=== PATIENT | female | born 1975 | race Caucasian/White ===

== ENCOUNTER 2018-09-09 18:32 | Emergency (ER) | payer SELFPAY ==
[2018-09-09 18:32] VITALS: BP 165/79; PULSE 85; RESP 24; TEMP 36.6; O2SAT 97; BMI 42.5
--- NOTE | 2018-09-09 19:04 | ED.VISSUMM ---
- ER Visit Summary Date of Service: 09/09/18 Chief Complaint: [Not feeling well] History of Present Illness: The patient is a 43 F [presents the emergency department with multiple vague complaints. Patient states that she is been under increased stress of late. They just moved to the area from [place] 3 weeks ago. Patient has a history of severe anxiety. Patient states that recently her 17-year-old daughter left her and left her baby with her as soon as she is taking care of her grandson. Patient has been feeling very anxious and at times short of breath. Patient has a history of severe anxiety in [place] times when even leave the house. Patient has been without her Lexapro for several months. She also used to be on Ativan. She denies any significant chest pain other than occasionally with her anxiety she will have some chest discomfort. She had no fever or cough. Also describes that her legs jump at night and twitch which has been happening for several months.] Physical Examination: [HEENT-PERRLA, EOMI. Cranial nerves II through XII grossly intact. TMs clear. Mucous membranes moist. No adenopathy. Cardiovascular-regular rate and rhythm without murmur or ectopy Lungs-clear to auscultation, chest wall stable without crepitus or subcu emphysema Abdomen-normoactive bowel sounds, soft, nontender, no rebound or rigidity, no peritoneal signs. Extremities-intact ?4, normal range of motion, normal pulses, atraumatic] Test Results: [None indicated] Emergency Department Course and Treatment: [] Treatment Plan: [I suspect patient likely experiencing anxiety and will restart her on her Lexapro and give her as needed Ativan.] Disposition: [Discharged home in stable condition. Patient will be referred to primary care physician pension examiner for no doc.] Impression: [Anxiety reaction] This note was generated with [employer] dictation software. It may contain incorrect words, spelling, and punctuation that were not noted in review of the chart prior to signing ED Disposition - Plan for ED Patient: Referrals: NOT,DEFINED [Primary Care Provider] -
--- NOTE | 2018-09-09 19:06 | ED.DEP ---
ED Disposition - Plan for ED Patient: Instructions: ED Stress React Prescriptions: Escitalopram Oxalate [Lexapro] 10 mg PO DAILY #30 tab Lorazepam [Ativan] 1 mg PO TID PRN #15 tab PRN Reason: Anxiety Referrals: NOT,DEFINED [Primary Care Provider] - Elizabeth Egan [[facility]] - 5-7 Days
--- NOTE | 2018-09-09 19:17 | ED.RN ---
DISCHARGE INSTRUCTIONS GIVEN TO AND REVIEWED WITH PATIENT, PATIENT DENIES QUESTIONS OR CONCERNS AND VOICES UNDERSTANDING OF DISCHARGE INSTRUCTIONS. PT AMBULATES OUT OF ROOM WITHOUT ISSUE.
== END 2018-09-09 19:21 | disposition home or self-care (01) ==
LOC: ED 19:17
PROVIDERS: Emergency Provider Emergency Medicine
DX: F41.1 Generalized anxiety disorder (principal); Z79.899 Other long term (current) drug therapy
CPT/HCPCS: 99282

== ENCOUNTER 2019-07-01 11:55 | Emergency (ER) | payer MEDICAID, SELFPAY ==
[2019-07-01 11:55] VITALS: BP 153/110; PULSE 82; RESP 16; TEMP 37.1; O2SAT 97; BMI 41.0
--- NOTE | 2019-07-01 12:14 | ED.VISSUMM ---
- ER Visit Summary Date of Service: 07/01/19 Chief Complaint: Atraumatic right shoulder pain History of Present Illness: The patient is a 44 F. There is no past medical history. Never had any significant shoulder surgery or injury. States she has been watching a small child recently that is her grandchild. She has been sleeping by the child. Said this caused her soreness in her right shoulder for the last 1 to 2 weeks. Last evening today is much worse. Denies any fever. No swelling. No redness. Physical Examination: Middle-aged female complaining of pain in her right shoulder. H EENT exam unremarkable. Neck nontender. Lungs clear to auscultation bilaterally. Heart regular rhythm no murmur. Abdomen soft nontender normal bowel sounds no peritoneal signs. Left upper and both lower extremities are unremarkable. Nontender with normal range of motion. Right shoulder tender to palpation. No deformity. No redness or swelling. No warmth. No bony deformity. She has decreased active and passive range of motion due to pain. This does not appear to be a septic joint. There is no obvious fracture or dislocation. 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 There is no swelling. Neurologic exam unremarkable. Test Results: Right shoulder x-ray 3 views shows no acute abnormality read by myself and the radiologist. Repeat exam at 1253 patient has some improvement. There is no change in the exam. Again no redness or warmth. Right hand remains neurovascularly intact. Emergency Department Course and Treatment: This appears to be a musculoskeletal etiology. It does not appear to be cardiac in etiology or neurologic. There is no signs of infection. She was given [place] for pain. X-ray being obtained. Treatment Plan: [] Disposition: Discharge Impression: Musculo skeletal right shoulder pain This note was generated with [employer] dictation software. It may contain incorrect words, spelling, and punctuation that were not noted in review of the chart prior to signing ED Disposition - Plan for ED Patient: Referrals: Care Physician,No Primary [Primary Care Provider] -
[2019-07-01] MEDS: HYDROcodone Bitartrate/Apap 5/325 Tablet PO (12:18)
--- NOTE | 2019-07-01 12:20 | RAD_ITS ---
STUDY: X-RAY - RIGHT SHOULDER REASON FOR EXAM: Female, 44 years old. PAIN SINCE THIS MORNING, NO INJURY -- LROM TECHNIQUE: 4 view(s) of the shoulder. COMPARISON: None. FINDINGS: Normal glenohumeral articulation. Normal acromioclavicular joint. Normal acromion. Normal humeral head and visualized proximal humerus. The soft tissue structures are unremarkable. Normal visualized pulmonary apex. RAD/Shoulder min 2 Views IMPRESSION: Normal x-ray examination of the shoulder. Electronically Signed: Mirza Hussein, at 12:47 EDT , Service support ,
--- NOTE | 2019-07-01 12:55 | ED.DEP ---
ED Disposition - Plan for ED Patient: Disposition: Home or Assisted Living Instructions: SHOULDER PAIN (Uncertain Cause) Prescriptions: Hydrocodone/Acetaminophen [[place] 5-325 Tablet] 1 ea PO Q4H PRN PRN #10 tab PRN Reason: Pain Or Fever Prescription Printed Referrals: Fede Tripp MD [NON-STAFF] - 1 Week if not improving Additional Instructions: Motrin for pain and inflammation. Limited [place] for pain. Ice to your shoulder. This should progressively improve if not follow-up. Any signs of redness or fever or swelling to the shoulder return.
[2019-07-01 13:05] VITALS: BP 137/82; PULSE 79; RESP 16; O2SAT 97
== END 2019-07-01 13:06 | disposition home or self-care (01) ==
PROVIDERS: Emergency Provider Emergency Medicine
DX: M75.51 Bursitis of right shoulder (principal)
CPT/HCPCS: 73030; 99283

== ENCOUNTER 2020-05-25 15:39 | Emergency (ER) | payer MEDICAID, SELFPAY ==
[2020-05-25 15:39] VITALS: BP 177/104; PULSE 83; RESP 20; TEMP 36.4; O2SAT 98; BMI 43.7
--- NOTE | 2020-05-25 16:49 | ED.DCSUM_ITS ---
- ER Visit Summary Date of Service: 05/25/20 Chief Complaint: [Paresthesias to both legs] History of Present Illness: The patient is a 45 F [presents to the emergency department complaint of paresthesias to both legs that started about a week ago. Patient denies any trauma to her back. She denies any neck pain out of the ordinary. She describes from about mid calf down to her feet sensation of feeling like her legs are asleep. Patient also states that her legs and feet tentative feel cold all the time. Patient was concerned this may be a circulation issue or she was worried about sciatica or neuropathy. She is never had sensations like this before. She denies any trauma to her neck or back. She denies recent illness. She denies Covid exposures. Patient does have history of restless leg syndrome and she states that she smokes marijuana to help treat that. She does not have a primary care physician currently.] Patient had gestational diabetes in 2005 but is not otherwise currently being treated for diabetes. Patient states that this all started when she stretched a really hard one morning and stretched out her legs and then developed charley horse-like cramping in both legs that then led to this numbness and tingling that she is currently experiencing. Physical Examination: [HEENT-PERRLA, EOMI. Cranial nerves II through XII grossly intact. TMs clear. Mucous membranes moist. No adenopathy. Cardiovascular-regular rate and rhythm without murmur or ectopy Lungs-clear to auscultation, chest wall stable without crepitus or subcu emphysema Abdomen-normoactive bowel sounds, soft, nontender, no rebound or rigidity, no peritoneal signs. Back exam-no tenderness over the thoracic or lumbar spine. Negative straight leg raises. Deep tendon reflexes are plus 2 out of 4 bilaterally at the patella and Achilles. Patient has normal 5 extension bilaterally. Extremities-intact ?4, normal range of motion, normal pulses, atraumatic.] Test Results: [CBC with differential was normal. Chemistries unremarkable. TSH was 1.14. Urinalysis showed 1 her leukocyte esterase as well as positive nitrites and 25-50 WBCs as well as +3 bacteria.] Emergency Department Course and Treatment: [Patient was medicated with Bactrim DS 1 tablet p.o.] Treatment Plan: [Patient will be referred to primary care physician for follow- up as etiology of neuropathy is unclear.] Disposition: [Discharged home in stable condition] Impression: [Neuropathy UTI] This note was generated with [employer] dictation software. It may contain incorrect words, spelling, and punctuation that were not noted in review of the chart prior to signing ED Disposition - Plan for ED Patient: Referrals: Care Physician,No Primary [Primary Care Provider] -
[2020-05-25 17:49] LABS: Mucous, Urine 0 SEEN /hpf (<or=2+)
[2020-05-25 17:57] LABS: Absolute Lymphocyte Count 1.95 X10^3/uL (0.83-4.51); Absolute Neutrophil Count 4.4 X10^3/uL (2.0-7.7); Basophil# 0.02 X10^3/uL; Basophil% 0.3 % (0-1); Eosinophil# 0.11 X10^3/uL; Eosinophils% 1.6 % (0-5); Hematocrit 44.7 % (37-47); Hemoglobin 13.8 g/dL (12.0-15.0); Lymphocyte # 1.95 X10^3/ul (4.0); Lymphocyte % 28.3 % (19-41); Mean Corp Hgb Conc 30.9 g/dL (32-36); Mean Corpuscular Hgb 27.1 pg (27.0-32.0); Mean Corpuscular Volume 87.8 fL (81-99); Mean Platelet Vol. 9.9 fl (6.2-12.0); Monocyte# 0.37 X10^3/uL; Monocyte% 5.4 % (0-10); NRBC Flagged by Analyzer 0 % (0-5); Neutrophil # 4.43 X10^3/uL (2.7-7.7); Neutrophil % 64.1 % (47-70); Platelet Count 277 K/mm3 (150-450); RBC Distribution Width CV 13.2 % (11.6-14.6); RBC Distribution Width SD 42.5 fl (35.1-43.9); Red Blood Count 5.09 M/mm3 (4.2-5.4); White Blood Count 6.9 K/mm3 (4.4-11.0)
[2020-05-25 17:58] LABS: Color, Urine Yellow (Yellow); Glucose, Dipstick Normal (Normal); Ketone-Dipstick Negative (Negative); Leukocyte Esterase-Dipstick 100 /ul (Negative); Nitrite-Dipstick Positive (Negative); Occult Blood-Urine 250 /ul (Negative); Protein-Dipstick Negative (Negative); Urine Bilirubin Dipstick Negative (Negative); Urine Clarity Sl. Cloudy (Clear); Urine Urobilinogen Normal (Normal); Urine pH 6.5 (5.0 - 8.0)
[2020-05-25 18:16] LABS: White Blood Cells 25-50 SEEN /hpf (0-5)
[2020-05-25 18:17] LABS: Bacteria 3+ /hpf (None Seen); Red Blood Cells-Urine 0-5 SEEN /hpf (0-5); Squamous Epithelial Cells - UA 0-5 SEEN /hpf (5-10)
[2020-05-25 18:31] LABS: Anion Gap 2 (5-15); BUN 7 mg/dL (7-18); BUN/Creat Ratio 8.4 RATIO (10-20); Calcium,Total 9.2 mg/dL (8.5-10.1); Chloride 105 mmol/L (98-107); Creatinine, Serum 0.83 mg/dL (0.55-1.02); EST Glomerular Filtration Rate 79 mL/min (>60); Est Glom Filt Rate - Afr Amer 96 mL/min (>60); Estimated Creatinine Clearance 87.25 ml/min; Glucose 103 mg/dL (74-106); Potassium 3.6 mmol/L (3.5-5.1); Sodium Level 138 mmol/L (136-145); Thyroid Stim Hormone (TSH) 1.14 uIU/mL (0.358-3.74)
--- NOTE | 2020-05-25 18:47 | ED.DEP ---
ED Disposition - Plan for ED Patient: Instructions: ED Neuropathy, Peripheral, ED Urinary Tract Infections in Women Prescriptions: Smz/Tmp Ds [Bactrim Ds] 1 tab PO BID #6 tab Prescription Printed Referrals: Care Physician,No Primary [Primary Care Provider] - Rosalino Mcclain MD [STAFF PHYSICIAN] - 3-5 Days
[2020-05-25] MEDS: Smz/Tmp Ds Tablet 1 TABLET PO (18:57)
== END 2020-05-25 19:03 | disposition home or self-care (01) ==
LOC: ED 17:23
PROVIDERS: Emergency Provider Emergency Medicine
DX: G62.9 Polyneuropathy, unspecified (principal); N39.0 Urinary tract infection, site not specified; G25.81 Restless legs syndrome; F12.90 Cannabis use, unspecified, uncomplicated
CPT/HCPCS: 80048; 81001; 83735; 84443; 85025; 99284; A4216

== ENCOUNTER 2020-06-20 16:05 | Emergency (ER) | payer MEDICAID, SELFPAY ==
[2020-06-20 16:06] VITALS: BP 131/69; PULSE 91; RESP 17; TEMP 36.5; O2SAT 98; BMI 41.8
--- NOTE | 2020-06-20 16:14 | EKG12_ITS ---
Test Reason : CP Blood Pressure : / mmHG Vent. Rate : 079 BPM Atrial Rate : 079 BPM P-R Int : 140 ms QRS Dur : 078 ms QT Int : 378 ms P-R-T Axes : 043 015 040 degrees QTc Int : 433 ms Normal sinus rhythm Low voltage QRS Septal infarct , age undetermined Abnormal ECG Confirmed by MARICHUY CH, MIGUEL ([id number]), slot editor SRI MCCRAY ([id number]) on 06/26/2020 10:18:20 A M Referred By: /BB Confirmed By:JEFFERY BENEDICT MD
--- NOTE | 2020-06-20 16:24 | NURSING ---
NO OLD EKGS
[2020-06-20 16:28] LABS: Absolute Lymphocyte Count 1.91 X10^3/uL (0.83-4.51); Absolute Neutrophil Count 4.1 X10^3/uL (2.0-7.7); Basophil# 0.01 X10^3/uL; Basophil% 0.2 % (0-1); Eosinophil# 0.11 X10^3/uL; Eosinophils% 1.7 % (0-5); Hematocrit 41.5 % (37-47); Hemoglobin 13.4 g/dL (12.0-15.0); Lymphocyte # 1.91 X10^3/ul (4.0); Lymphocyte % 29.2 % (19-41); Mean Corp Hgb Conc 32.3 g/dL (32-36); Mean Corpuscular Hgb 28.5 pg (27.0-32.0); Mean Corpuscular Volume 88.1 fL (81-99); Monocyte# 0.39 X10^3/uL; NRBC Flagged by Analyzer 0 % (0-5); Neutrophil # 4.08 X10^3/uL (2.7-7.7); Neutrophil % 62.4 % (47-70); Platelet Count 279 K/mm3 (150-450); RBC Distribution Width CV 13.4 % (11.6-14.6); RBC Distribution Width SD 43.4 fl (35.1-43.9); Red Blood Count 4.71 M/mm3 (4.2-5.4); White Blood Count 6.5 K/mm3 (4.4-11.0)
[2020-06-20 16:46] LABS: Anion Gap 8 (5-15); BUN 10 mg/dL (7-18); BUN/Creat Ratio 11.8 RATIO (10-20); Chloride 104 mmol/L (98-107); Creatinine, Serum 0.85 mg/dL (0.55-1.02); EST Glomerular Filtration Rate 77 mL/min (>60); Est Glom Filt Rate - Afr Amer 94 mL/min (>60); Glucose 93 mg/dL (74-106); Potassium 3.2 mmol/L (3.5-5.1); Sodium Level 141 mmol/L (136-145)
--- NOTE | 2020-06-20 16:50 | RAD_ITS ---
EXAM: XR CHEST, 1 VIEW CLINICAL INDICATION: chest pain TECHNIQUE: Frontal view of the chest. [employer] report generation technology utilized. COMPARISON: None. FINDINGS: LUNGS AND PLEURAL SPACES: Unremarkable. No consolidation or edema. No pneumothorax. No effusion. HEART: Unremarkable. Cardiac silhouette not enlarged. MEDIASTINUM: Central airways and mediastinal contour are unremarkable. BONES/JOINTS: Unremarkable. SOFT TISSUES: Unremarkable. RAD/Chest 1 View (Portable) IMPRESSION: No radiographic evidence of acute cardiopulmonary disease. Electronically Signed: Michael Griggs MD at 17:09 EST , Service support ,
--- NOTE | 2020-06-20 16:51 | ED.DCSUM_ITS ---
- ER Visit Summary Date of Service: 06/20/20 Chief Complaint: Chest pain History of Present Illness: The patient is a 45 F history of anxiety, gestational diabetes and reflux. Patient states at 9 PM last night at rest she got left parasternal chest discomfort went away before she went to bed. When she woke up this morning about 45 minutes later she got the chest pain again. She describes as a pressure. She denies any nausea, diaphoresis or dyspnea. Not associated with exertion. No history of DVT or PE. No cardiac history. No prior cardiac work-up. She is a non-smoker. She denies any recent exertional dyspnea nor exertional chest pain. Physical Examination: Middle-aged female no acute distress initial blood pressure 131/69 pulse ox 90% room air no signs hypoxia. HEENT exam unremarkable. Neck nontender no JVD. Lungs auscultation bilaterally. Heart regular rhythm no murmur rate about 80. Chest wall not specifically tender. Abdomen soft nontender normal bowel sounds no peritoneal signs. Extremities moves all 4. Calves are nontender without edema or cords. Neurologically she is awake alert with no focal motor deficits. Test Results: EKG shows normal sinus rhythm rate of 79 with low voltage. CBC normal white count of 6 hemoglobin 13. She is unremarkable normal creatinine gap. Potassium 3.2. Troponin normal. Repeat EKG showed normal sinus rhythm rate of 79 no change from the first. Chest x-ray portable 1 view interpreted by myself showed no acute abnormality. Normal cardiac silhouette mediastinum. Also read by the radiologist and agrees. PN exam patient is doing well at 1830. She is feeling better after the GI cock tail and Pepcid. This may be secondary to reflux. I do not think is cardiac. She is comfortable being discharged home. Emergency Department Course and Treatment: Patient with atypical chest pain will undergo chest pain protocol. I did give her a GI cocktail and Pepcid to see if that will relieve her symptoms. Treatment Plan: Protonix for reflux. Outpatient follow-up with a local primary care physician. Disposition: Discharge Impression: Acute chest pain of uncertain etiology Reflux This note was generated with [employer] software. It may contain incorrect words, spelling, and punctuation that were not noted in review of the chart prior to signing ED Disposition - Plan for ED Patient: Referrals: Care Physician,No Primary [Primary Care Provider] -
--- NOTE | 2020-06-20 16:54 | EKG12_ITS ---
Test Reason : REAPEAT Blood Pressure : / mmHG Vent. Rate : 079 BPM Atrial Rate : 079 BPM P-R Int : 136 ms QRS Dur : 084 ms QT Int : 394 ms P-R-T Axes : 045 -08 024 degrees QTc Int : 451 ms Normal sinus rhythm Low voltage QRS Borderline ECG Confirmed by BEKA CH, JOSEF ([id number]), editor newspaper SRI MCCRAY ([id number]) on 06/22/2020 11:12:49 AM Referred By: Confirmed By:JOSEF IRELAND MD
[2020-06-20] MEDS: Famotidine 20 MG Tablet 40 MG PO (17:29)
[2020-06-20] MEDS: Mag Hydrox/Al Hydrox/Simeth 30 ML UDC PO (17:29)
[2020-06-20 17:33] VITALS: BP 135/84; PULSE 80; RESP 23; O2SAT 96
--- NOTE | 2020-06-20 18:36 | ED.DEP ---
ED Disposition - Plan for ED Patient: Disposition: Home or Assisted Living Instructions: ED Chest Pain, Uncertain Cause, ED GERD (Adult) Prescriptions: Pantoprazole Sodium [Protonix] 40 mg PO DAILY #30 tab Prescription Printed Referrals: Mauricio Maldonado MD [STAFF PHYSICIAN] - 3-5 Days if not improving Additional Instructions: Follow-up with a local primary care physician. Your test today were unremarkable. This will be treated as possible gastroesophageal reflux. With Protonix daily.
[2020-06-20 18:46] VITALS: BP 143/78; PULSE 81; RESP 18; O2SAT 97
--- NOTE | 2020-06-20 18:47 | ED.RN ---
THIS NURSE REVIEWED D/C INSTRUCTIONS WITH PT. PT VERBALIZED UNDERSTANDING OF INSTRUCTIONS. IV D/C. IV CATHETER INTACT. PT TOLERATED WELL. PT DENIES FURTHER NEEDS OR QUESTIONS AT THIS TIME
== END 2020-06-20 18:47 | disposition home or self-care (01) ==
PROVIDERS: Emergency Provider Emergency Medicine
DX: R07.9 Chest pain, unspecified (principal); K21.9 Gastro-esophageal reflux disease without esophagitis; Z79.899 Other long term (current) drug therapy
CPT/HCPCS: 71045; 80048; 84484; 85025; 93005; 99285; A4216

== ENCOUNTER 2021-06-20 15:18 | Emergency (ER) | payer MEDICAID, SELFPAY ==
[2021-06-20 15:19] VITALS: BP 164/95; PULSE 87; RESP 16; TEMP 36; O2SAT 97; BMI 41.0
--- NOTE | 2021-06-20 15:53 | CT_ITS ---
EXAM: CT HEAD WITHOUT INTRAVENOUS CONTRAST : 1975 CLINICAL INDICATION: Pain TECHNIQUE: Multiple axial images were obtained of the head without intravenous contrast. This CT exam was performed using one or more of the following dose reduction techniques: automated exposure control, adjustment of the mA and/or kV according to patient size, and/or use of iterative reconstruction technique. This report was created using [employer] report generation technology. COMPARISON: None. FINDINGS: BRAIN AND EXTRA-AXIAL SPACES: Unremarkable. No intra- or extra-axial hemorrhage. No evidence of acute infarct. No intracranial mass or mass effect. There is preservation of the mccoy/white matter interface. Posterior fossa structures are unremarkable. Ventricles are appropriate for age. No hydrocephalus. Basal cisterns are patent. BONES/JOINTS: Unremarkable. No discrete lytic or blastic abnormalities. SINUSES: Unremarkable as visualized. Clear. MASTOID AIR CELLS: Unremarkable. Clear. ORBITS: Visualized globes, extraocular muscles, optic nerves and retrobulbar fat appear unremarkable. CT/Brain/Head without Contrast IMPRESSION: No acute abnormality. Individualized dose optimization techniques were used for this CT. at 1628 Reported and signed by: Joey Mejia MD Electronically Signed: Joey Mejia MD at 16:27 EST ,
--- NOTE | 2021-06-20 15:53 | EX.ED.DYSGE1 ---
HPI History of Present Illness Chief Complaint: Headache Narrative Narrative: Patient complains of headache for a week at a pressure type sensation over her frontal sinuses area, she is a long history almost lifelong of migraine she states this is slightly different, some pressure in her central face, no numbness mixed paresthesias no loss of any type of mental or neurologic function she is able to get up do all of her daily activities for the last 7 days despite the headaches, she took [id number] Tylenol type medicine with no improvement presents for evaluation, no fever no cough no #6 paresthesias PFSH PFSH Medical History (Updated 06/20/21 @ 15:48 by Gisselle Ruelas) Endometriosis Migraine Home Medications NK 06/20/21 [History Last Taken Unknown] Allergy/AdvReac Type Severity Reaction Status Date / Time Penicillins Allergy Angioedema Verified 06/20/21 15:20 Surgical History (Updated 06/20/21 @ 15:55 by Gisselle Ruelas) H/O hernia repair H/O tubal ligation Hx of cholecystectomy Social History Smoking Status: Never smoker ROS ROS ED Neurologic Neurologic: Reports headache(s) EXAM Physical Exam Narrative Exam Narrative: Vital signs unremarkable head neck chest unremarkable lungs clear heart tones normal abdomen soft nontender cranial nerves normal motor cerebellar neurologic function unremarkable NIH 0 Const Vital Signs: 06/20/21 15:19 Temperature 96.8 F L Temperature Source Temporal Pulse Rate 87 Respiratory Rate 16 Blood Pressure 164/95 H Blood Pressure Mean 118 Pulse Ox 97 Oxygen Delivery Method Room Air MDM MDM MDM Narrative Medical decision making narrative: Given her complaints pain management CT head We had described prescribed pain management for the patient she later told the nurse she was nervous to take any new medications and refused all medications, so no meds were given at her request, head CT was obtained that showed nothing acute I explained to the exact etiology of headache remains unclear she is comfortable with discharge home she was concerned about sinusitis or something else that is life-threatening she understands etiology remains not fully determined and she needs outpatient management she is referred to the local clinic to be seen tomorrow she will take what ever medication [id number] she is comfortable taking and return for change in symptoms Home stable Final impression acute recurrent headache Radiography Diagnostic Testing: Clinical Impression(s) from Imaging Studies Brain CT 06/20/21 15:53 IMPRESSION: No acute abnormality. Individualized dose optimization techniques were used for this CT. at 1628 Reported and signed by: Joey Mejia MD Electronically Signed: Joey Mejia MD at 16:27 EST , Discharge Plan Triage Chief Complaint: Headache ED Provider: Lynette Lott Dx/Rx/DC Orders Prescriptions: No Action NK RF: 0 Primary Care Provider: Care Physician,No Primary
[2021-06-20 18:23] VITALS: BP 129/92; PULSE 86; RESP 16; O2SAT 98
== END 2021-06-20 18:24 | disposition home or self-care (01) ==
PROVIDERS: Emergency Provider Emergency Medicine; Visit Provider Emergency Medicine
DX: R51.9 Headache, unspecified (principal); N80.9 Endometriosis, unspecified
CPT/HCPCS: 70450; 99282

== ENCOUNTER 2022-01-11 10:24 | Emergency (ER) | payer MEDICAID, SELFPAY ==
[2022-01-11 10:26] VITALS: BP 166/92; PULSE 97; RESP 18; TEMP 36.8; O2SAT 99; BMI 41.5
--- NOTE | 2022-01-11 11:02 | ED.VIS.GI ---
HPI HPI - GI History of Present Illness Chief Complaint: Abd Pain Informant: patient Abdominal Pain/Flank Pain Onset: Days (2) Context: Gradual Onset Timing: Continuous Quality: Sharp Location: RLQ Worsened by: Movement Relieved by: Nothing Nausea/Vomiting/Emesis GI Symptom: Negative for Nausea or Vomiting Diarrhea/Melena/Hematochezia GI Symptom: Negative for Diarrhea, Melena or Hematochezia Associated Symptoms Associated Symptoms: Negative for Dysuria, Frequency or Hematuria Narrative Narrative: Patient presents with right lower abdominal pain that has been constant for the past 2 days. Patient states it began in the right lower quadrant. Patient states it is gradually gotten worse. Patient describes her pain as sharp. Patient states it is worse with certain movements and with walking. Patient states that whenever she lifts her leg up to take a step her pain gets worse. Patient states her pain gets better when she pushes on the right lower quadrant and is worse when she lets go. Patient denies any nausea or vomiting. Patient denies any diarrhea, melena, or hematochezia. Patient states she had a normal bowel movement. Patient denies any urinary complaints. Patient states her last menstrual period was 12/22/2021. [facility] Medical History Endometriosis Migraine Home Medications NK 06/20/21 [History Last Taken Unknown] Allergy/AdvReac Type Severity Reaction Status Date / Time Penicillins Allergy Angioedema Verified 01/11/22 10:26 Surgical History H/O hernia repair H/O tubal ligation Hx of cholecystectomy Social History Smoking Status: Never smoker ROS ROS ED Constitutional Constitutional ED: Denies chills or fever(s) Eyes Eyes: Denies blurry vision or change in vision ENT ENT ED: Denies rhinorrhea or sore throat Cardiovascular Cardiovascular: Denies chest pain or palpitations Respiratory/Chest Respiratory/Chest: Denies cough or dyspnea Gastrointestinal Gastrointestinal: Reports abdominal pain; Denies nausea or vomiting Genitourinary Genitourinary ED: Denies dysuria or hematuria Musculoskeletal Musculoskeletal: Reports back pain; Denies neck pain Integumentary Denies abscess or rash Neurologic Neurologic: Denies headache(s) or weakness Allergic/Immunologic Allergic/Immunologic ED: Denies mouth swelling or urticaria EXAM Physical Exam Const Vital Signs: 01/11/22 10:26 01/11/22 12:30 01/11/22 14:07 Temperature 98.2 F Temperature Source Temporal Pulse Rate 97 72 Respiratory Rate 18 16 16 Blood Pressure 166/92 H Blood Pressure Mean 116 Pulse Ox 99 98 Oxygen Delivery Method Room Air Room Air Positive well nourished, well developed and obese General Appearance ED: well developed and NAD Nutritional Appearance: obese HEENT Reports moist mucous membranes Neck supple and no JVD Resp normal respiratory effort and clear to auscultation bilaterally Cardio regular rate, regular rhythm and no murmurs GI normal to inspection, nondistended, normoactive bowel sounds Palpation: soft, tender RLQ and rebound tenderness present; Negative for guarding Extremity normal to inspection General Extremety ED: Negative for edema or tenderness General Extremity: Negative for edema Neuro oriented x3, CN's II-XII intact bilaterally and no sensory deficits noted Sensorium / Orientation: alert Motor Exam: strength 5/5 throughout Psych mental status grossly normal Skin no rashes or lesions noted MDM MDM MDM Narrative Medical decision making narrative: Patient was given IV fluids, morphine, and Zofran. CBC was within normal limits. Comprehensive metabolic profile was within normal limits. Lipase was normal. Urinalysis does not show any evidence of urinary tract infection or hematuria. CT scan of the abdomen pelvis was obtained. There is no evidence of appendicitis. There is a left renal cyst. There is some left hydronephrosis due to a stricture at the left ureteropelvic junction. There is a right ovarian cyst measuring 4.9 x 4.5 cm. This was interpreted by the radiologist and reviewed by myself. Patient was advised of her findings. Patient is feeling better on reevaluation. Patient was instructed to take ibuprofen as needed for pain. Patient was instructed to follow-up with her primary care physician and P[employer] in 5 to 7 days. Patient understood and was agreeable with the plan. All questions were answered. Lab Data Attestation: I reviewed the patient's lab results. Labs: Laboratory Results - last 24 hr 01/11/22 01/11/22 01/11/22 10:46 10:46 12:04 WBC 7.3 RBC 4.79 Hgb 13.8 Hct 41.3 MCV 86.2 MCH 28.8 MCHC 33.4 RDW Std Deviation 41.3 RDW Coeff of Krista 13.2 Plt Count 267 MPV 10.3 Immature Gran % (Auto) 0.500 Neut % (Auto) 68.2 Lymph % (Auto) 23.8 [place] % (Auto) 5.3 Eos % (Auto) 1.8 Baso % (Auto) 0.4 Absolute Neuts (auto) 5.0 Absolute Lymphs (auto) 1.75 Nucleated RBC % 0 Sodium 139 Potassium 4.1 Chloride 105 Carbon Dioxide 28.0 Anion Gap 6 BUN 12 Creatinine 0.72 Estim Creat Clear Calc 103.12 Est GFR (MDRD) Af Amer 113 Est GFR (MDRD) Non-Af 93 BUN/Creatinine Ratio 16.8 Glucose 146 H Calcium 9.3 Total Bilirubin 0.40 AST 12 L ALT 18 Alkaline Phosphatase 66 Total Protein 7.6 Albumin 3.5 Globulin 4.1 Albumin/Globulin Ratio 0.9 Lipase 82 Urine Color Straw Urine Clarity Clear Urine pH 6.5 Ur Specific [place] 1.010 Urine Protein Negative Urine Glucose (UA) Normal Urine Ketones Negative Urine Occult Blood 50 H Urine Nitrite Negative Urine Bilirubin Negative Urine Urobilinogen Normal Ur Leukocyte Esterase 25 H Urine RBC 0 SEEN Urine WBC 0 SEEN Ur Squamous Epith Cells 0-5 SEEN Urine Bacteria 0 SEEN Urine Mucus 0 SEEN Radiography Diagnostic Testing: Clinical Impression(s) from Imaging Studies Abdomen/Pelvis CT 01/11/22 11:07 IMPRESSION: Left renal cyst. Moderate degree of left hydronephrosis most likely secondary to a stricture at the left ureteral pelvic junction. Nonobstructive calculi in the lower pole calyx of the left kidney. 4.9 sign by 4.5 semi a cyst in the right ovary. Electronically Signed: Mirza Hussein MD at 13:25 EDT , Discharge Plan Triage Chief Complaint: Abd Pain ED Provider: Akhil Beard Dx/Rx/DC Orders Clinical Impression: Cyst of right ovary, Right lower quadrant abdominal pain Instructions: ED Ovarian Cyst Prescriptions: No Action NK Primary Care Provider: Care Physician,No Primary Referrals: Annabella Dotson DO [Med Staff - Tree Girdler] - 5-7 Days Care Physician,No Primary [Primary Care Provider] - Disposition Disposition: Home, Self Care
--- NOTE | 2022-01-11 11:07 | CT_ITS ---
STUDY: CT ABDOMEN AND PELVIS WITH CONTRAST REASON FOR EXAM: Female, 46 years old. Right lower quadrant abdominal pain -- IV PO Contrast RADIATION DOSAGE (If Supplied By Facility): CTDIvol = ( 17 ) mGy, DLP = ( 1361.15 ) mGycm TECHNIQUE: Transaxial images were obtained from the dome of the diaphragm to the symphysis pubis with oral contrast. Oral and amp; IV Gastrografin and amp; 100mL Isovue-370 was administered. Sagittal and coronal images were reconstructed. Individualized dose optimization techniques were used for this CT. COMPARISON: None. FINDINGS: The visualized lung bases are unremarkable. The visualized portions of the heart are within normal limits. Normal liver. There are surgical clips in the gallbladder fossa consistent with a prior cholecystectomy. Normal spleen. Normal pancreas. Normal bilateral adrenal glands. Normal right kidney. There is a 5.7 cm x 7.3 cm cyst in the upper midportion of the left kidney. Moderate degree of the left hydronephrosis. No obstructive uropathy is seen. There is evidence of 2 adjacent calculi in the lower pole calyx of the left kidney. The larger calculus measures 1.2 cm. Normal visualized stomach. Normal small intestine. Normal colon. The appendix is visualized and appears normal. Normal abdominal aorta. Normal inferior vena cava. Normal retroperitoneum. Normal urinary bladder. There is a 4.9 cm x 4.5 cm cyst in the right ovary. There is evidence of prior lower anterior abdominal wall hernia repair with a mesh. Straightening of the normal lumbar lordosis. CT/Abdomen/Pelvis WITH Contrast IMPRESSION: Left renal cyst. Moderate degree of left hydronephrosis most likely secondary to a stricture at the left ureteral pelvic junction. Nonobstructive calculi in the lower pole calyx of the left kidney. 4.9 sign by 4.5 semi a cyst in the right ovary. Electronically Signed: Mirza Hussein MD at 13:25 EDT ,
[2022-01-11] MEDS: 0.9% Normal Saline 1,000 ML 1000 ML IV (11:11)
[2022-01-11 11:24] LABS: Absolute Lymphocyte Count 1.75 X10^3/uL (0.83-4.51); Basophil# 0.03 X10^3/uL; Basophil% 0.4 % (0-1); Eosinophil# 0.13 X10^3/uL; Eosinophils% 1.8 % (0-5); Hematocrit 41.3 % (37-47); Hemoglobin 13.8 g/dL (12.0-15.0); Lymphocyte # 1.75 X10^3/ul (0.83-4.51); Lymphocyte % 23.8 % (19-41); Mean Corp Hgb Conc 33.4 g/dL (32-36); Mean Corpuscular Hgb 28.8 pg (27.0-32.0); Mean Corpuscular Volume 86.2 fL (81-99); Mean Platelet Vol. 10.3 fl (6.2-12.0); Monocyte# 0.39 X10^3/uL; Monocyte% 5.3 % (0-10); NRBC Flagged by Analyzer 0 % (0-5); Neutrophil % 68.2 % (47-70); Platelet Count 267 K/mm3 (150-450); RBC Distribution Width CV 13.2 % (11.6-14.6); RBC Distribution Width SD 41.3 fl (35.1-43.9); Red Blood Count 4.79 M/mm3 (4.2-5.4); White Blood Count 7.3 K/mm3 (4.4-11.0)
[2022-01-11 11:40] LABS: ALB/GLOB Ratio 0.9 RATIO (0.9-2.4); AST(SGOT) 12 U/L (15-37); Alanine Aminotransfer ALT/SGPT 18 U/L (13-56); Albumin, Serum 3.5 g/dL (3.2-5.0); Alkaline Phosphatase 66 U/L (45-117); Anion Gap 6 (5-15); BUN 12 mg/dL (7-18); BUN/Creat Ratio 16.8 RATIO (10-20); Calcium,Total 9.3 mg/dL (8.5-10.1); Chloride 105 mmol/L (98-107); Creatinine, Serum 0.72 mg/dL (0.55-1.02); EST Glomerular Filtration Rate 93 mL/min (>60); Est Glom Filt Rate - Afr Amer 113 mL/min (>60); Estimated Creatinine Clearance 103.12 ml/min; Globulin 4.1 g/dL (2.2-4.2); Glucose 146 mg/dL (74-106); Lipase 82 U/L (73-393); Potassium 4.1 mmol/L (3.5-5.1); Protein, Total 7.6 g/dL (6.4-8.2); Sodium Level 139 mmol/L (136-145)
[2022-01-11 12:09] LABS: Bacteria 0 SEEN /hpf (None Seen); Mucous, Urine 0 SEEN /hpf (<or=2+); Red Blood Cells-Urine 0 SEEN /hpf (0-5); White Blood Cells 0 SEEN /hpf (0-5)
[2022-01-11 12:11] LABS: Color, Urine Straw (Yellow); Glucose, Dipstick Normal (Normal); Ketone-Dipstick Negative (Negative); Leukocyte Esterase-Dipstick 25 /ul (Negative); Nitrite-Dipstick Negative (Negative); Occult Blood-Urine 50 /ul (Negative); Protein-Dipstick Negative (Negative); Urine Bilirubin Dipstick Negative (Negative); Urine Clarity Clear (Clear); Urine Urobilinogen Normal (Normal); Urine pH 6.5 (5.0 - 8.0)
[2022-01-11 12:19] LABS: Squamous Epithelial Cells - UA 0-5 SEEN /hpf (5-10)
[2022-01-11 12:30] VITALS: RESP 16
--- NOTE | 2022-01-11 14:01 | CM.ED ---
SW Note Referral Source: Case Find Referral Reason: No Primary Care Physician (PCP) SW reviewed chart and noted that patient has no PCP. SW provided patient with list of [facility] and [facility] Physician List for reference. No other issues or concerns voiced at this time. SW remains available for any additional needs. Plan: Provided patient with PCP information Emily LOCKWOOD
[2022-01-11 14:07] VITALS: PULSE 72; RESP 16; O2SAT 98
[2022-01-11 14:32] VITALS: BP 145/82; PULSE 81; RESP 18; O2SAT 97
== END 2022-01-11 14:32 | disposition home or self-care (01) ==
PROVIDERS: Emergency Provider Emergency Medicine; Visit Provider Emergency Medicine
DX: N83.201 Unspecified ovarian cyst, right side (principal); Z68.41 Body mass index [BMI] 40.0-44.9, adult; E66.9 Obesity, unspecified; R10.31 Right lower quadrant pain; N13.2 Hydronephrosis with renal and ureteral calculous obstruction
CPT/HCPCS: J2405; 74177; 80053; 81001; 83690; 85025; 96360; 96361; 99282; J7030; Q9967; A4216

== ENCOUNTER 2022-08-04 23:01 | Emergency (ER) | payer MEDICAID, SELFPAY ==
[2022-08-04 23:01] VITALS: BP 169/111; PULSE 114; RESP 32; TEMP 36.7; O2SAT 96; BMI 42.1
[2022-08-04 23:07] VITALS: O2SAT 96
--- NOTE | 2022-08-04 23:08 | EKG12_ITS ---
Test Reason : DYSRHYTHMIA Blood Pressure : / mmHG Vent. Rate : 102 BPM Atrial Rate : 102 BPM P-R Int : 142 ms QRS Dur : 074 ms QT Int : 352 ms P-R-T Axes : 060 065 059 degrees QTc Int : 458 ms Sinus tachycardia Septal infarct , age undetermined Abnormal ECG Confirmed by VIGNESH CH, BRENDA ([id number]), art editor SRI MCCRAY ([id number]) on 08/05/2022 11:41:17 AM Referred By: JOESPH Confirmed By:BRENDA MEDELLIN MD
--- NOTE | 2022-08-04 23:09 | EDS_ITS ---
HPI History of Present Illness Chief Complaint: Shortness of Breath Informant: patient Narrative Narrative: Into the history and worsening dyspnea. Started with sinus congestion. History of seasonal allergies. States progressed productive cough today subjective fevers. Reports headache. No vomiting or diarrhea. Denies asthma or COPD. Reports wheezing. Denies tobacco history. COVID x2 last time in November. No hospitalizations. No vaccinations. Denies myalgias. States tightness across the chest due to coughing. She states her grandchildren has seasonal allergies however no illnesses. Prior similar symptoms: Yes PFSH PFSH Medical History Endometriosis Migraine Home Medications NK 06/20/21 [History Last Taken Unknown] Allergy/AdvReac Type Severity Reaction Status Date / Time Penicillins Allergy Angioedema Verified 08/04/22 23:03 Surgical History H/O hernia repair H/O tubal ligation Hx of cholecystectomy Social History Smoking Status: Never smoker ROS ROS ED Constitutional Constitutional ED: Reports fever(s); Denies chills or sweats Eyes Eyes: Denies change in vision ENT ENT ED: Denies dysphagia or sore throat Cardiovascular Cardiovascular: Denies chest pain, leg edema, palpitations or racing heartbeat Respiratory/Chest Respiratory/Chest: Reports cough and dyspnea; Denies dyspnea on exertion Gastrointestinal Gastrointestinal: Denies abdominal pain, diarrhea, nausea or vomiting Genitourinary Genitourinary ED: Denies dysuria, hematuria or urinary frequency Musculoskeletal Musculoskeletal: Denies back pain, extremity pain or neck pain Integumentary Denies rash or wounds Neurologic Neurologic: Denies headache(s), paresthesias or weakness EXAM Physical Exam Const Vital Signs: 08/04/22 23:01 08/04/22 23:07 08/04/22 23:17 Temperature 98.1 F Temperature Source Temporal Pulse Rate 114 H 98 Respiratory Rate 32 H 20 H Respiratory Effort Short of Breath Respiratory Depth Normal Respiratory Pattern Normal Blood Pressure 169/111 H Blood Pressure Mean 130 Pulse Ox 96 Oxygen Delivery Method Room Air Room Air Positive well nourished and well developed Constitutional Narrative: Speaking in some short sentences, occasional coughing General Appearance ED: well developed HEENT Reports moist mucous membranes normocephalic and atraumatic Eyes PERRL, EOMs intact bilaterally and conjunctivae normal General Eye ED: Yes normal appearance of both eyes Neck no lymphadenopathy, supple and no meningeal signs General: Negative for tenderness Chest Wall Chest: Negative for tenderness Resp Resp Narrative: Upper airway wheezing, no retractions Effort and Inspection: symmetric chest movement; Negative for respiratory distress Cardio regular rhythm and no murmurs Rate: tachycardic Peripheral Pulses: pulses 2+ throughout GI normal to inspection, nondistended, normoactive bowel sounds and non-tender Palpation: Negative for guarding or rebound tenderness present Back/Spine no CVA tenderness and no thoracic nor lumbar tenderness Extremity normal to inspection General Extremety ED: Negative for edema or tenderness General Extremity: Negative for edema Neuro oriented x3, CN's II-XII intact bilaterally and no sensory deficits noted Sensorium / Orientation: awake and alert Skin no rashes or lesions noted and no wounds MDM MDM MDM Narrative Medical decision making narrative: Interventions / MDM: Differential diagnosis: Viral syndrome, bronchitis, pneumonia, bronchospasm Diagnosis considered but do not suspect: Pulmonary embolism, however wheezing on exam pulse ox 96% room air. My EKG interpretation: Sinus rate of 102, no ST changes. Same EKG as June 2020. Imaging independently reviewed and interpreted by myself: 2 view chest x-ray: No acute process External documents reviewed: N/A Test considered but not ordered:N/A ED course: Patient cough with wheezing no asthma or COPD. No indication for steroids. She is given aerosol treatments with improvement basic labs normal COVID and flu negative. Two-view chest x-ray also negative. Re-evaluation: At 2359: Improved wheezing heart rate and respiratory rate improved. No wheezing on reexamination. Clinically better. Discussed viral syndrome with bronchospasms. Provided albuterol every with spacer use as needed. Outpatient follow-up, with strict return precautions. All questions were answered. Disposition discussed with patient/family/significant other: Patient Case discussed with consulting clinician: N/A Lab Data Labs: Laboratory Results - last 24 hr 08/04/22 08/04/22 23:15 23:15 WBC 5.8 RBC 4.65 Hgb 13.1 Hct 41.1 MCV 88.4 MCH 28.2 MCHC 31.9 L RDW Std Deviation 41.6 RDW Coeff of Krista 12.8 Plt Count 244 MPV 10.1 Immature Gran % (Auto) 1.000 H Neut % (Auto) 63.7 Lymph % (Auto) 22.9 [place] % (Auto) 9.3 Eos % (Auto) 2.6 Baso % (Auto) 0.5 Absolute Neuts (auto) 3.7 Absolute Lymphs (auto) 1.33 Nucleated RBC % 0 Sodium 137 Potassium 3.8 Chloride 106 Carbon Dioxide 28.0 Anion Gap 3 L BUN 11 Creatinine 0.78 Estim Creat Clear Calc 90.91 Est GFR (MDRD) Af Amer 103 Est GFR (MDRD) Non-Af 85 BUN/Creatinine Ratio 14.2 Glucose 185 H Calcium 9.5 Discharge Plan Triage Chief Complaint: Shortness of Breath ED Provider: Catracho Allen Dx/Rx/DC Orders Clinical Impression: Acute viral syndrome, Acute bronchospasm, Sinus tachycardia Instructions: ED Bronchospasm (Adult), ED Viral Syndrome (Adult) Prescriptions: No Action NK Primary Care Provider: Care Physician,No Primary Referrals: Katia Dubose MD [Med Staff - Work Order Sorting Clerk] - 1 Week if not improving Care Physician,No Primary [Primary Care Provider] - Activity Restrictions/Additional Instructions: Chest x-ray negative. COVID and flu negative. Labs are stable. Use inhaler as prescribed every 2-4 hours as needed for wheezing. Continue your seasonal allergy medicines. Monitor symptoms. Return if worsening symptoms not improved with inhaler. Otherwise outpatient follow-up. Disposition Disposition: Home, Self Care
[2022-08-04 23:17] VITALS: PULSE 98; RESP 20
[2022-08-04] MEDS: Ipratropium/Albuterol Sulfate 3 ML AMPUL.NEB INHALATION (23:17)
[2022-08-04 23:34] LABS: Anion Gap 3 (5-15); BUN 11 mg/dL (7-18); BUN/Creat Ratio 14.2 RATIO (10-20); Calcium,Total 9.5 mg/dL (8.5-10.1); Chloride 106 mmol/L (98-107); Creatinine, Serum 0.78 mg/dL (0.55-1.02); EST Glomerular Filtration Rate 85 mL/min (>60); Est Glom Filt Rate - Afr Amer 103 mL/min (>60); Estimated Creatinine Clearance 90.91 ml/min; Glucose 185 mg/dL (74-106); Potassium 3.8 mmol/L (3.5-5.1); Sodium Level 137 mmol/L (136-145)
[2022-08-04 23:35] LABS: Absolute Lymphocyte Count 1.33 X10^3/uL (0.83-4.51); Absolute Neutrophil Count 3.7 X10^3/uL (2.0-7.7); Basophil# 0.03 X10^3/uL; Basophil% 0.5 % (0-1); Eosinophil# 0.15 X10^3/uL; Eosinophils% 2.6 % (0-5); Hematocrit 41.1 % (37-47); Hemoglobin 13.1 g/dL (12.0-15.0); Lymphocyte # 1.33 X10^3/ul (0.83-4.51); Lymphocyte % 22.9 % (19-41); Mean Corp Hgb Conc 31.9 g/dL (32-36); Mean Corpuscular Hgb 28.2 pg (27.0-32.0); Mean Corpuscular Volume 88.4 fL (81-99); Mean Platelet Vol. 10.1 fl (6.2-12.0); Monocyte# 0.54 X10^3/uL; Monocyte% 9.3 % (0-10); NRBC Flagged by Analyzer 0 % (0-5); Neutrophil # 3.69 X10^3/uL (2.7-7.7); Neutrophil % 63.7 % (47-70); Platelet Count 244 K/mm3 (150-450); RBC Distribution Width CV 12.8 % (11.6-14.6); RBC Distribution Width SD 41.6 fl (35.1-43.9); Red Blood Count 4.65 M/mm3 (4.2-5.4); White Blood Count 5.8 K/mm3 (4.4-11.0)
--- NOTE | 2022-08-04 23:40 | RAD_ITS ---
INDICATION: cough EXAMINATION/TECHNIQUE: X-RAY - XR Chest 2 Views COMPARISON: 06/20/2020. FINDINGS: LINES/DEVICES: None. LUNGS: No consolidation or evidence of an effusion. No evidence of edema or a pneumothorax. MEDIASTINUM AND CARDIOVASCULAR STRUCTURES: Cardiac silhouette is normal in size and contour. Mediastinum is unremarkable. BONES AND SOFT TISSUES: No acute abnormality. RAD/Chest PA and Lateral IMPRESSION: No evidence of cardiopulmonary disease. Electronically Signed: Navid Cespedes DO at 23:59 EDT ,
[2022-08-05] MEDS: Albuterol Sulfate 8 gm Inhaler (60 puffs) 2 PUFF INHALATION (00:14)
[2022-08-05 00:16] VITALS: BP 129/82; PULSE 103; RESP 19; TEMP 36.7; O2SAT 94
== END 2022-08-05 00:26 | disposition home or self-care (01) ==
PROVIDERS: Emergency Provider Emergency Medicine; Visit Provider Emergency Medicine
DX: B34.9 Viral infection, unspecified (principal); J98.01 Acute bronchospasm; R00.0 Tachycardia, unspecified; Z90.49 Acquired absence of other specified parts of digestive tract
CPT/HCPCS: 71046; 80048; 85025; 87428; 93005; 94640; 99283; A4216

== ENCOUNTER 2022-11-03 09:28 | Emergency (ER) | payer SELFPAY ==
[2022-11-03 09:28] VITALS: BP 143/97; PULSE 104; RESP 20; TEMP 36.4; O2SAT 97; BMI 43.1
[2022-11-03 09:33] VITALS: BP 143/99; PULSE 88; RESP 16; TEMP 37.2
--- NOTE | 2022-11-03 09:50 | CT_ITS ---
STUDY: CT ABDOMEN AND PELVIS WITH CONTRAST REASON FOR EXAM: Female, 47 years old. Left upper quadrant pain RADIATION DOSAGE (If Supplied By Facility): CTDIvol = ( 19.44 ) mGy, DLP = ( 1839.36 ) mGycm TECHNIQUE: IV 100mL Isovue-300 was administered. Transaxial images were obtained from the dome of the diaphragm to the symphysis pubis in the arterial, nephrographic and excretory phases. Multiplanar coronal and sagittal images were reformatted. Individualized Dose Optimization Techniques Were Used For This CT. COMPARISON: CT scan of the abdomen and pelvis of 01/11/2022. FINDINGS: The visualized lung bases are unremarkable. The visualized portions of the heart are within normal limits. Normal liver. There are surgical clips in the gallbladder fossa consistent with a prior cholecystectomy. The spleen measures about 14 cm in length. Normal pancreas. Normal bilateral adrenal glands. Normal visualized stomach. Normal in caliber small bowel loops. Retention. The descending and sigmoid colon are not distended. The appendix is visualized and appears normal. Normal abdominal aorta. No retroperitoneal adenopathy. Normal right kidney. Moderate to severe left hydronephrosis with severe distention of the left upper pole calyces increased since previous exam. Dilated left renal pelvis. The left ureter is not dilated which may reflect stricture at the ureteropelvic junction. Nonobstructing stone or multiple stones in the lower pole of the left kidney measuring up to about 11 mm. Probable large cyst in the upper pole of the left kidney compressing the upper pole calyces measuring about 8 x 7 cm however it could represent severely dilated upper pole calyces. The bladder is not well distended. 4.7 x 2.7 cm left adnexal cyst. Resolving right adnexal cyst. Prior anterior abdominal wall hernia repair. Normal osseous structures. CT/Abdomen/Pelvis W IV Cont ONLY IMPRESSION: 1. Severe left hydronephrosis increased since previous examination likely due to ureteropelvic junction obstruction. 2. Nonobstructing stones in the lower pole of the left kidney. 3. Left adnexal cyst. Electronically Signed: Carl Rizo MD at 11:51 EDT ,
--- NOTE | 2022-11-03 09:51 | ED.VIS.GI ---
HPI HPI - GI History of Present Illness Chief Complaint: Abd Pain Narrative Narrative: 47-year-old female presenting with left upper quadrant pain. She states it radiates to the left flank. Patient reports a fever of 101 ?F at home. She has had this for couple of days. The initial onset of the pain was . She states she felt like she is having the chills and took some Tylenol ibuprofen and this went away. The pain does come and go. Patient does not have history of kidney stones. She does state that she had some dysuria and urinary frequency and took some Azo at home and drink a lot of fluids out of concern for UTI. She states that she has some discolored urine still. She also reports she has not had a bowel movement in a few days. She has not had any diarrhea. No history of diverticulitis. Patient does have history of endometriosis which is not similar in pain for her. PFSH PFS Medical History Endometriosis Migraine Home Medications hydrocodone-acetaminophen 5-325mg 5mg-325mg 1 tab PO Q6H PRN PRN Pain 3 days #12 TABLETS 11/03/22 [Rx Last Taken Unknown] ondansetron 4 mg disintegrating tablet 4 mg PO Q8H PRN PRN Nausea #20 tabs 11/03/22 [Rx Last Taken Unknown] sulfamethoxazole 800 mg-trimethoprim 160 mg tablet (Bactrim DS) 1 tab PO BID #28 tabs 11/03/22 [Rx Last Taken Unknown] Allergy/AdvReac Type Severity Reaction Status Date / Time Penicillins Allergy Angioedema Verified 11/03/22 09:42 Surgical History H/O hernia repair H/O tubal ligation Hx of cholecystectomy Social History Smoking Status: Never smoker ROS ROS ED Constitutional Constitutional ED: Denies chills, fever(s) or sweats Eyes Eyes: Denies blurry vision or change in vision ENT ENT ED: Denies ear pain or sore throat Cardiovascular Cardiovascular: Denies chest pain, palpitations or racing heartbeat Respiratory/Chest Respiratory/Chest: Denies cough, dyspnea or sputum Gastrointestinal Gastrointestinal: Reports abdominal pain, constipation and nausea; Denies diarrhea or vomiting Genitourinary Genitourinary ED: Denies dysuria, hematuria or urinary frequency Musculoskeletal Musculoskeletal: Denies arthralgias, myalgias or neck pain Integumentary Denies abscess, Abrasions or rash Neurologic Neurologic: Denies headache(s), paresthesias or weakness Psychiatric Psychiatric: Denies anxiety, depression, suicidal ideation or suicidal thoughts Endocrine Endocrinology: Denies polydipsia or polyuria EXAM Physical Exam Const Vital Signs: 11/03/22 09:28 11/03/22 09:33 11/03/22 10:41 Temperature 97.5 F L 99 F 99 F Temperature Source Temporal Oral Oral Pulse Rate 104 H 88 88 Respiratory Rate 20 H 16 16 Blood Pressure 143/97 H 143/99 H 133/89 H Blood Pressure Mean 112 113 103 Pulse Ox 97 Oxygen Delivery Method Room Air Room Air 11/03/22 12:11 11/03/22 12:11 Temperature 99 F Temperature Source Oral Pulse Rate 92 94 Respiratory Rate 16 18 Blood Pressure 135/83 H 135/83 H Blood Pressure Mean 100 100 Pulse Ox 98 99 Oxygen Delivery Method Room Air Room Air Positive well nourished General Appearance ED: NAD; Negative for pallor HEENT Reports moist mucous membranes normocephalic and atraumatic Eyes PERRL and EOMs intact bilaterally Resp normal respiratory effort Cardio regular rhythm Rate: tachycardic GI Palpation: tender LLQ and LUQ Back/Spine no CVA tenderness Neuro CN's II-XII intact bilaterally Sensorium / Orientation: alert, oriented to person, oriented to place and oriented to time Motor Exam: strength 5/5 throughout Psych mental status grossly normal Skin no wounds General Skin Exam: Negative for jaundice or pallor MDM MDM MDM Narrative Medical decision making narrative: Patient with left upper quadrant pain as well as fevers for the last 4 days. Differential includes colitis, diverticulitis, pancreatitis, UTI, pyelonephritis, kidney stone, bowel obstruction, malignancy, dehydration, electrode abnormalities. On exam she does have some tenderness to palpation in the left upper quadrant. She does not have CVA tenderness however. CBC was obtained to assess white blood cell count, hemoglobin, platelets. CMP to assess liver function, renal function, electrolytes, glucose. Lipase to assess for pancreatitis. Urinalysis to test for UTI. Patient does not like narcotic pain medication. I did give her Toradol and Zofran to help with the pain and nausea. She given a liter of normal saline. CBC shows a normal white blood cell count at 10.4 and hemoglobin macular stable. Renal function and electrolytes appear normal. LFTs are unremarkable. Lipase negative. Urinalysis consistent with UTI. Patient given a gram of Rocephin. I did obtain a CT of the ab pelvis with IV contrast this shows enlarging renal cyst and left-sided hydronephrosis which is severe. This is due to a ureteropelvic obstruction most likely per the radiologist. I discussed this with Dr. Rodriguez and she stated she thought it was congenital and she would necessarily put a stent in immediately. The patient's pain was controlled at this point. So she recommended treating with antibiotics and treating her pain and having her follow-up with her next week in the office. Patient was amenable to this. She is given [place], Zofran, Bactrim. Return precautions were discussed. Impression: 1. Left-sided hydronephrosis 2. Left-sided renal cyst 3. Left adnexal cyst 4. Pyelonephritis 5. UPJ obstruction on the left Lab Data Attestation: I reviewed the patient's lab results. Labs: Laboratory Results - last 24 hr 11/03/22 11/03/22 10:04 10:50 WBC 10.4 RBC 4.17 L Hgb 11.8 L Hct 36.4 L MCV 87.3 MCH 28.3 MCHC 32.4 RDW Std Deviation 41.9 RDW Coeff of Krista 13.2 Plt Count 214 MPV 10.0 Immature Gran % (Auto) 0.600 Neut % (Auto) 81.3 H Lymph % (Auto) 10.5 L [place] % (Auto) 6.2 Eos % (Auto) 1.2 Baso % (Auto) 0.2 Absolute Neuts (auto) 8.4 H Absolute Lymphs (auto) 1.09 Nucleated RBC % 0 Sodium 138 Potassium 3.6 Chloride 104 Carbon Dioxide 28.0 Anion Gap 6 BUN 8 Creatinine 0.77 Estim Creat Clear Calc 92.09 Est GFR (MDRD) Af Amer 104 Est GFR (MDRD) Non-Af 86 BUN/Creatinine Ratio 10.4 Glucose 187 H Calcium 9.3 Total Bilirubin 0.60 AST 13 L ALT 23 Alkaline Phosphatase 79 Total Protein 7.6 Albumin 2.9 L Globulin 4.7 H Albumin/Globulin Ratio 0.6 L Lipase 17 Urine Color Yellow Urine Clarity Cloudy Urine pH 6.0 Ur Specific [place] 1.020 Urine Protein 100 H Urine Glucose (UA) 50 H Urine Ketones 5 H Urine Occult Blood 250 H Urine Nitrite Positive H Urine Bilirubin Negative Urine Urobilinogen 1 H Ur Leukocyte Esterase 500 H Urine RBC 10-25 SEEN Urine WBC >100 SEEN Ur Squamous Epith Cells 0-5 SEEN Urine Bacteria 4+ Urine Mucus 0 SEEN Radiography Diagnostic Testing: Clinical Impression(s) from Imaging Studies Abdomen/Pelvis CT 11/03/22 09:50 IMPRESSION: 1. Severe left hydronephrosis increased since previous examination likely due to ureteropelvic junction obstruction. 2. Nonobstructing stones in the lower pole of the left kidney. 3. Left adnexal cyst. Electronically Signed: Carl Rizo MD at 11:51 EDT , Discharge Plan Triage Chief Complaint: Abd Pain ED Provider: Bertrand Hopper Dx/Rx/DC Orders Instructions: ED Pyelonephritis, Female (Adult) Prescriptions: New sulfamethoxazole-trimethoprim [Bactrim DS] 800-160 mg tablet 1 tab PO BID Qty: 28 0RF ondansetron 4 mg tablet,disintegrating 4 mg PO Q8H PRN PRN (Reason: Nausea) Qty: 20 0RF hydrocodone-acetaminophen 5-325 mg tablet 1 tab PO Q6H PRN PRN (Reason: Pain) 3 Days Qty: 12 0RF Primary Care Provider: Care Physician,No Primary Referrals: Mary Rodriguez MD [Med Staff - Active Staff] - 3-5 Days Care Physician,No Primary [Primary Care Provider] - Disposition Disposition: Home, Self Care Discharge Date/Time: 11/03/22 12:29
[2022-11-03] MEDS: 0.9% Normal Saline 1,000 ML 1000 ML IV (10:01)
[2022-11-03] MEDS: Ketorolac 15 MG/ML Vial IV (10:02)
[2022-11-03] MEDS: Ondansetron 4 MG/2 ML Vial IV (10:03)
[2022-11-03 10:10] LABS: Absolute Lymphocyte Count 1.09 X10^3/uL (0.83-4.51); Absolute Neutrophil Count 8.4 X10^3/uL (2.0-7.7); Basophil# 0.02 X10^3/uL; Basophil% 0.2 % (0-1); Eosinophil# 0.12 X10^3/uL; Eosinophils% 1.2 % (0-5); Hematocrit 36.4 % (37-47); Hemoglobin 11.8 g/dL (12.0-15.0); Lymphocyte # 1.09 X10^3/ul (0.83-4.51); Lymphocyte % 10.5 % (19-41); Mean Corp Hgb Conc 32.4 g/dL (32-36); Mean Corpuscular Hgb 28.3 pg (27.0-32.0); Mean Corpuscular Volume 87.3 fL (81-99); Monocyte# 0.64 X10^3/uL; Monocyte% 6.2 % (0-10); NRBC Flagged by Analyzer 0 % (0-5); Neutrophil # 8.44 X10^3/uL (2.7-7.7); Neutrophil % 81.3 % (47-70); Platelet Count 214 K/mm3 (150-450); RBC Distribution Width CV 13.2 % (11.6-14.6); RBC Distribution Width SD 41.9 fl (35.1-43.9); Red Blood Count 4.17 M/mm3 (4.2-5.4); White Blood Count 10.4 K/mm3 (4.4-11.0)
[2022-11-03 10:27] LABS: ALB/GLOB Ratio 0.6 RATIO (0.9-2.4); AST(SGOT) 13 U/L (15-37); Alanine Aminotransfer ALT/SGPT 23 U/L (13-56); Albumin, Serum 2.9 g/dL (3.2-5.0); Alkaline Phosphatase 79 U/L (45-117); Anion Gap 6 (5-15); BUN 8 mg/dL (7-18); BUN/Creat Ratio 10.4 RATIO (10-20); Calcium,Total 9.3 mg/dL (8.5-10.1); Chloride 104 mmol/L (98-107); Creatinine, Serum 0.77 mg/dL (0.55-1.02); EST Glomerular Filtration Rate 86 mL/min (>60); Est Glom Filt Rate - Afr Amer 104 mL/min (>60); Estimated Creatinine Clearance 92.09 ml/min; Globulin 4.7 g/dL (2.2-4.2); Glucose 187 mg/dL (74-106); Lipase 17 U/L (13-75); Potassium 3.6 mmol/L (3.5-5.1); Protein, Total 7.6 g/dL (6.4-8.2); Sodium Level 138 mmol/L (136-145)
[2022-11-03 10:41] VITALS: BP 133/89; PULSE 88; RESP 16; TEMP 37.2
[2022-11-03 11:05] LABS: Mucous, Urine 0 SEEN /hpf (<or=2+)
[2022-11-03 11:15] LABS: Color, Urine Yellow (Yellow); Glucose, Dipstick 50 mg/dl (Normal); Ketone-Dipstick 5 mg/dl (Negative); Leukocyte Esterase-Dipstick 500 /ul (Negative); Nitrite-Dipstick Positive (Negative); Occult Blood-Urine 250 /ul (Negative); Protein-Dipstick 100 mg/dl (Negative); Urine Bilirubin Dipstick Negative (Negative); Urine Clarity Cloudy (Clear); Urine Urobilinogen 1 mg/dl (Normal)
[2022-11-03 11:25] LABS: Bacteria 4+ /hpf (None Seen); Red Blood Cells-Urine 10-25 SEEN /hpf (0-5); Squamous Epithelial Cells - UA 0-5 SEEN /hpf (5-10); White Blood Cells >100 SEEN /hpf (0-5)
[2022-11-03] MEDS: Ceftriaxone 1 GM/50 ML BAG IV (12:07)
[2022-11-03 12:11] VITALS: BP 135/83; PULSE 92; PULSE 94; RESP 16; RESP 18; TEMP 37.2; O2SAT 98; O2SAT 99
--- NOTE | 2022-11-03 12:28 | ED.RN ---
IV removed intact, no bleeding at site. Verbalized understanding of instructions. Ambulatory from dept., gait steady.
== END 2022-11-03 12:29 | disposition home or self-care (01) ==
PROVIDERS: Emergency Provider Student in an Organized Health Care Education/Training Program; Visit Provider Student in an Organized Health Care Education/Training Program
DX: N13.0 Hydronephrosis with ureteropelvic junction obstruction (principal); N13.2 Hydronephrosis with renal and ureteral calculous obstruction; N12 Tubulo-interstitial nephritis, not specified as acute or chronic; N28.1 Cyst of kidney, acquired; N83.292 Other ovarian cyst, left side; Z90.49 Acquired absence of other specified parts of digestive tract
CPT/HCPCS: 99283; 74177; 80053; 81001; 83690; 85025; 87086; 87088; 87186; J7040; Q9967; J2405

== ENCOUNTER 2022-11-05 20:01 | Inpatient (IN) | payer SELFPAY ==
[2022-11-05 20:02] VITALS: BP 160/92; PULSE 117; RESP 20; TEMP 37.3; O2SAT 95; BMI 43.5
[2022-11-05 20:31] VITALS: PULSE 100; RESP 18; O2SAT 95
--- NOTE | 2022-11-05 20:32 | EKG12_ITS ---
Test Reason : COMPLAINT Blood Pressure : / mmHG Vent. Rate : 099 BPM Atrial Rate : 099 BPM P-R Int : 138 ms QRS Dur : 076 ms QT Int : 352 ms P-R-T Axes : 042 026 026 degrees QTc Int : 451 ms Normal sinus rhythm Normal ECG Confirmed by VIGNESH CH, BRENDA ([id number]), manager editorial AMPARO DANIEL ([id number]) on 11/06/2022 2:28:24 PM Referred By: ZACHARIAH Confirmed By:BRENDA MEDELLIN MD
[2022-11-05] MEDS: levoFLOXacin IV 750 MG/150 ML BAG 100 MG IV (21:18)
[2022-11-05] MEDS: 0.9% Normal Saline 1,000 ML 999 ML IV (21:18)
[2022-11-05 21:22] LABS: Absolute Lymphocyte Count 1.62 X10^3/uL (0.83-4.51); Absolute Neutrophil Count 8.2 X10^3/uL (2.0-7.7); Basophil# 0.02 X10^3/uL; Basophil% 0.2 % (0-1); Eosinophil# 0.11 X10^3/uL; Hematocrit 35.1 % (37-47); Hemoglobin 11.1 g/dL (12.0-15.0); Lymphocyte # 1.62 X10^3/ul (0.83-4.51); Lymphocyte % 15.2 % (19-41); Mean Corp Hgb Conc 31.6 g/dL (32-36); Mean Corpuscular Hgb 27.7 pg (27.0-32.0); Mean Corpuscular Volume 87.5 fL (81-99); Mean Platelet Vol. 9.5 fl (6.2-12.0); Monocyte# 0.71 X10^3/uL; Monocyte% 6.6 % (0-10); NRBC Flagged by Analyzer 0 % (0-5); Neutrophil # 8.15 X10^3/uL (2.7-7.7); Neutrophil % 76.3 % (47-70); Platelet Count 308 K/mm3 (150-450); RBC Distribution Width CV 12.9 % (11.6-14.6); RBC Distribution Width SD 41.5 fl (35.1-43.9); Red Blood Count 4.01 M/mm3 (4.2-5.4); White Blood Count 10.7 K/mm3 (4.4-11.0)
[2022-11-05 21:24] VITALS: BP 120/100; PULSE 95; RESP 20; TEMP 37.3; O2SAT 95
[2022-11-05 21:28] LABS: International Normalized Ratio 1.1; Prothrombin Time (Protime)PT. 14.5 SECONDS (11.7-14.9)
[2022-11-05 21:29] LABS: Partial Thromboplast Time 40.2 Seconds (24.1-36.2)
--- NOTE | 2022-11-05 21:33 | EX.ED.DYSGE1 ---
HPI History of Present Illness Chief Complaint: Complaint Detail of Chief Complaint: Persistent recurrent fever and recent diagnosis urinary tract infection Informant: patient Onset/Context/Timing Onset: Days Quality: Urinary symptoms Location: and left sided abdomen/flank pain. Current Severity: Mild Maximum Severity: Moderate Worsened by: Urinary tract infection Relieved by: Nothing Associated Symptoms Associated Symptoms: Fever and chills Narrative Narrative: Patient was seen on November 03. Patient was diagnosed with urinary tract infection and placed on Bactrim based on allergies. Urine culture is presumptively positive for E. coli. Patient presents because of document temperature of 102.2 at home. She took antipyretic prior to coming. She states she does not feel well. She did have a CAT scan on the which reveals obstruction at the left UVJ with hydroureter nephrosis. There was no inflammation of the kidney. Patient also had renal calculi. Patient has not seen a urologist in the past. Patient does report nausea without vomiting or diarrhea. Patient does complain of mild headache. She denies visual, ocular auditory symptoms. She denies auditory symptoms. She denies chest pain. She does complain of shortness of breath at rest and shortness of breath with activity. This is new since yesterday. She does complain of pain on the left side which she experienced when she was seen on the . There is no history of trauma. She has not noted a rash. Prior similar symptoms: Yes Recent Illness/Hospitalization: Yes PFSH [facility] Medical History Endometriosis Kidney cysts Migraine Ureter obstruction Home Medications hydrocodone-acetaminophen 5-325mg 5mg-325mg 1 tab PO Q6H PRN PRN Pain 3 days #12 TABLETS 11/03/22 [Rx Last Taken Unknown] ondansetron 4 mg disintegrating tablet 4 mg PO Q8H PRN PRN Nausea #20 tabs 11/03/22 [Rx Last Taken Unknown] sulfamethoxazole 800 mg-trimethoprim 160 mg tablet (Bactrim DS) 1 tab PO BID #28 tabs 11/03/22 [Rx Last Taken Unknown] Allergy/AdvReac Type Severity Reaction Status Date / Time Penicillins Allergy Angioedema Verified 11/05/22 20:02 Surgical History H/O hernia repair H/O tubal ligation Hx of cholecystectomy Social History (Updated 11/05/22 @ 21:[address] Avery Stafford MD) Smoking Status: Never smoker alcohol intake: current alcohol intake frequency: holidays/special occasions only substance use type: does not use ROS ROS ED Constitutional Constitutional ED: Reports chills, fever(s) and sweats; Denies weight loss Eyes Eyes: Denies blurry vision, change in vision or diplopia ENT ENT ED: Denies ear pain, rhinorrhea or sore throat Cardiovascular Cardiovascular: Reports palpitations; Denies chest pain, orthopnea, paroxysmal nocturnal dyspnea or racing heartbeat Respiratory/Chest Respiratory/Chest: Reports dyspnea and dyspnea on exertion; Denies cough, orthopnea, paroxysmal nocturnal dyspnea or sputum Gastrointestinal Gastrointestinal: Reports abdominal pain and nausea; Denies constipation, diarrhea or melena Genitourinary Genitourinary ED: Reports dysuria and urinary frequency Musculoskeletal Musculoskeletal: Denies arthralgias, back pain, myalgias or neck pain Integumentary Denies abscess, Abrasions or rash Neurologic Neurologic: Denies headache(s), paresthesias or weakness Psychiatric Psychiatric: Denies anxiety or depression Endocrine Endocrinology: Denies cold intolerance or heat intolerance Hematologic/Lymphatic Hematologic/Lymphatic: Reports systems reviewed and no addt'l complaints, except as documented EXAM Physical Exam Const Vital Signs: 11/05/22 20:02 11/05/22 20:31 11/05/22 21:24 Temperature 99.2 F H 99.2 F H Temperature Source Temporal Oral Pulse Rate 117 H 100 95 Respiratory Rate 20 H 18 20 H Blood Pressure 160/92 H 120/100 H Blood Pressure Mean 114 106 Pulse Ox 95 95 95 Oxygen Delivery Method Room Air Room Air Room Air 11/05/22 21:24 Temperature Temperature Source Pulse Rate Respiratory Rate Blood Pressure Blood Pressure Mean Pulse Ox 95 Oxygen Delivery Method Room Air Positive well nourished, well developed and obese General Appearance ED: well developed; Negative for pallor Nutritional Appearance: obese HEENT Reports dry mucous membranes HEENT Narrative: Head is atraumatic normocephalic. Ears normal. Nares patent. Posterior pharynx is normal. Mouth ED: Yes dry mucous membranes Mouth: dry mucous membranes Eyes PERRL and EOMs intact bilaterally General Eye ED: Negative for pale conjunctiva or scleral icterus Neck no lymphadenopathy, supple and no JVD Chest Wall inspection of chest normal and palpation of chest normal Resp No normal respiratory effort and clear to auscultation bilaterally Resp Narrative: There is minimal use of accessory muscles with minimal activity. Auscultation: diminished lung sounds Cardio regular rhythm, S1 normal heart sound, S2 normal heart sound and no murmurs Rate: tachycardic GI normal to inspection, nondistended, normoactive bowel sounds, non-distended and no masses; Negative for hepatosplenomegaly Palpation: soft and tender LLQ and LUQ; Negative for guarding, splenomegaly, mass or rebound tenderness present Back/Spine General Back: CVA tenderness left Cervical Spine: Negative for cervical spine tenderness Thoracic Spine / Upper Back: Negative for thoracic spinal tenderness Lumbar Spine / Lower Back: Negative for lumbar spinal tenderness Extremity normal to inspection General Extremety ED: Negative for tenderness Neuro oriented x3, CN's II-XII intact bilaterally and no sensory deficits noted Sensorium / Orientation: alert Psych mental status grossly normal Skin no rashes or lesions noted, no wounds and skin turgor normal General Skin Exam: Negative for elasticity normal, jaundice or pallor MDM MDM MDM Narrative Medical decision making narrative: Patient has symptoms consistent with failed outpatient treatment for urinary tract infection. The obstruction may be due to a congenital or acquired lesion at the left UV [place] and also may be a nonvisualized stone. Patient does have renal cyst. Based on allergy to penicillin with angioedema patient was treated with levofloxacin per sepsis order set. Blood work was repeated. CBC was obtained assess white count differential. BMP to assess renal function. Lactate to assess for endorgan dysfunction. Lab Data Attestation: I reviewed the patient's lab results. Lab results narrative: Count is upper end of normal at 10.7 with shift. There is no bandemia. Coags are normal. Labs: Laboratory Results - last 24 hr 11/05/22 21:00 WBC 10.7 RBC 4.01 L Hgb 11.1 L Hct 35.1 L MCV 87.5 MCH 27.7 MCHC 31.6 L RDW Std Deviation 41.5 RDW Coeff of Krista 12.9 Plt Count 308 MPV 9.5 Immature Gran % (Auto) 0.700 Neut % (Auto) 76.3 H Lymph % (Auto) 15.2 L [place] % (Auto) 6.6 Eos % (Auto) 1.0 Baso % (Auto) 0.2 Absolute Neuts (auto) 8.2 H Absolute Lymphs (auto) 1.62 Nucleated RBC % 0 PT 14.5 INR 1.1 APTT 40.2 H Sodium 135 L Potassium 3.4 L Chloride 103 Carbon Dioxide 25.0 Anion Gap 7 BUN 8 Creatinine 0.76 Estim Creat Clear Calc 93.30 Est GFR (MDRD) Af Amer 104 Est GFR (MDRD) Non-Af 86 BUN/Creatinine Ratio 10.5 Glucose 146 H Lactic Acid 0.8 Calcium 9.9 Total Bilirubin 0.40 AST 24 ALT 38 Alkaline Phosphatase 111 Total Protein 7.8 Albumin 2.8 L Globulin 5.0 H Albumin/Globulin Ratio 0.6 L Management Discussion w/another healthcare provider: Hospitalist (Case discussed with Dr. Simpson. She requests I speak to urology. Spoke with Dr. Mary Bowser Askey will admit to her service.) and Medical Device Discharge Plan Triage Chief Complaint: Complaint ED Provider: Avery Stafford Dx/Rx/DC Orders Clinical Impression: Complicated urinary tract infection, Sepsis without acute organ dysfunction, Persistent fever, Hydronephrosis of left kidney, Left renal stone Prescriptions: No Action sulfamethoxazole-trimethoprim [Bactrim DS] 800-160 mg tablet 1 tab PO BID Qty: 28 0RF ondansetron 4 mg tablet,disintegrating 4 mg PO Q8H PRN PRN (Reason: Nausea) Qty: 20 0RF hydrocodone-acetaminophen 5-325 mg tablet 1 tab PO Q6H PRN PRN (Reason: Pain) 3 Days Qty: 12 0RF Primary Care Provider: Care Physician,No Primary Referrals: Care Physician,No Primary [Primary Care Provider] - Disposition Disposition: Acute Care [facility]
[2022-11-05 21:38] LABS: ALB/GLOB Ratio 0.6 RATIO (0.9-2.4); AST(SGOT) 24 U/L (15-37); Alanine Aminotransfer ALT/SGPT 38 U/L (13-56); Albumin, Serum 2.8 g/dL (3.2-5.0); Alkaline Phosphatase 111 U/L (45-117); Anion Gap 7 (5-15); BUN 8 mg/dL (7-18); BUN/Creat Ratio 10.5 RATIO (10-20); Calcium,Total 9.9 mg/dL (8.5-10.1); Chloride 103 mmol/L (98-107); Creatinine, Serum 0.76 mg/dL (0.55-1.02); EST Glomerular Filtration Rate 86 mL/min (>60); Est Glom Filt Rate - Afr Amer 104 mL/min (>60); Glucose 146 mg/dL (74-106); Potassium 3.4 mmol/L (3.5-5.1); Protein, Total 7.8 g/dL (6.4-8.2); Sodium Level 135 mmol/L (136-145)
[2022-11-05 22:08] LABS: Lactic Acid 0.8 mmol/L (0.4-1.9)
[2022-11-05 22:28] VITALS: BP 125/78; PULSE 95; RESP 17; TEMP 36.7; O2SAT 95
[2022-11-05 23:42] VITALS: BMI 43.6
[2022-11-05 23:50] VITALS: BP 139/78; PULSE 98; RESP 18; TEMP 36.8; O2SAT 98
[2022-11-05] MEDS: Ondansetron 4 MG/2 ML Vial IV (23:59)
[2022-11-05] MEDS: MELATONIN 3 MG TABLET PO (23:59)
[2022-11-06 05:43] VITALS: BP 121/76; PULSE 101; RESP 20; TEMP 37.1; O2SAT 99
[2022-11-06] MEDS: 0.9% Saline Lock 10 ML Syringe IV ×2 (05:44→10:11)
[2022-11-06] MEDS: Lactated Ringers 1,000 ML 100 ML IV ×3 (05:45→15:45)
[2022-11-06 07:00] LABS: Absolute Lymphocyte Count 1.47 X10^3/uL (0.83-4.51); Absolute Neutrophil Count 6.7 X10^3/uL (2.0-7.7); Basophil# 0.02 X10^3/uL; Basophil% 0.2 % (0-1); Eosinophil# 0.15 X10^3/uL; Eosinophils% 1.7 % (0-5); Hematocrit 34.3 % (37-47); Hemoglobin 10.9 g/dL (12.0-15.0); Lymphocyte # 1.47 X10^3/ul (0.83-4.51); Lymphocyte % 16.2 % (19-41); Mean Corp Hgb Conc 31.8 g/dL (32-36); Mean Corpuscular Volume 88.2 fL (81-99); Mean Platelet Vol. 9.9 fl (6.2-12.0); Monocyte# 0.65 X10^3/uL; Monocyte% 7.2 % (0-10); NRBC Flagged by Analyzer 0 % (0-5); Neutrophil # 6.72 X10^3/uL (2.7-7.7); Neutrophil % 73.9 % (47-70); Platelet Count 294 K/mm3 (150-450); RBC Distribution Width CV 13.2 % (11.6-14.6); RBC Distribution Width SD 42.5 fl (35.1-43.9); Red Blood Count 3.89 M/mm3 (4.2-5.4); White Blood Count 9.1 K/mm3 (4.4-11.0)
[2022-11-06 07:42] LABS: Anion Gap 6 (5-15); BUN 8 mg/dL (7-18); BUN/Creat Ratio 10.4 RATIO (10-20); Calcium,Total 9.2 mg/dL (8.5-10.1); Chloride 105 mmol/L (98-107); Creatinine, Serum 0.77 mg/dL (0.55-1.02); EST Glomerular Filtration Rate 86 mL/min (>60); Est Glom Filt Rate - Afr Amer 104 mL/min (>60); Estimated Creatinine Clearance 92.09 ml/min; Glucose 133 mg/dL (74-106); Potassium 3.5 mmol/L (3.5-5.1); Sodium Level 137 mmol/L (136-145)
[2022-11-06] MEDS: Ketorolac 30 MG/ML Syringe IV ×2 (08:11→16:39)
[2022-11-06] MEDS: Ondansetron 4 MG/2 ML Vial IV (08:11)
--- NOTE | 2022-11-06 09:58 | CASEMGMT ---
DAVID GO Assessment: Face to Face with pt for initial transition planning/care coordination assessment. RN ABBI introduced self and role at [facility], pt voices understanding and consents to assessment. Pt is A/O x4 and answers all questions appropriately at this time. Pt sitting on edge of bed with sig other at bedside who then left prior to assessment. Care providers, pharmacy, and demographics verified/updated. Admitting Dx: acute pyelonephritis PCP:Pt denies having but states she is going to go to in [place] upon dc. Pt denies needing a local healthcare directory pamphlet. Specialists:Pt denies Preferred Pharmacy:[facility] Insurance: [employer] Prescription Benefit: yes LNOK: Akhil Swanson, sig other; Mary Caballero, sister Living Arrangements: Pt lives with sig other, 17 y/o son and 5 y/o grandson in a ground level apt with no steps to enter. Pt reports she is I in ADL's and denies concerns at home. Transportation: Pt drives self and denies concerns with transportation. DME/HHC/SNF: Pt denies having any DME in the home, previous hx of HHC or SNF stays. Pt states no concerns with going home at time of dc. Pt states no further concerns/needs. CM to follow. Advised pt to ask CM if any further question/concerns/needs arise, voices understanding. Pt Goal: Home Plan: Home
[2022-11-06] MEDS: Ciprofloxacin 400 MG/200 ML BAG 200 MG IV ×2 (10:11→21:07)
[2022-11-06 11:40] VITALS: BP 134/80; PULSE 95; RESP 18; TEMP 37.1; O2SAT 98
[2022-11-06 17:40] VITALS: BP 128/82; PULSE 97; RESP 18; TEMP 37.2; O2SAT 99
[2022-11-06 20:55] VITALS: BP 140/85; PULSE 95; RESP 18; TEMP 37; O2SAT 98
[2022-11-06] MEDS: Famotidine 20 MG Tablet PO (21:09)
--- NOTE | 2022-11-06 22:29 | HP.PCM_ITS ---
HPI - General General Date of Admission: 11/05/22 Date of Service: 11/06/22 Chief Complaint: left flank pain HPI Narrative Late entry of note, patient seen at 12pm today. BRANDEN LEAL, is a 47 F who presents with uncontrolled left flank pain and fever. She had symptoms of a urinary tract infection 10 days prior to admission, and she treated it at home with hydration and cranberry juice. Symptoms resolved. They did not include fever, nausea or vomiting or flank pain at that time. She then had acute onset of pain about 2-3 days after the lower urinary tract infection resolved. She was seen in the ER and diagnosed with a urinary tract infection with left renal cyst and UPJ obstruction on CT. She was sent home on bactrim. Two days later, she presented to the ER with fever to 102 along with the left flank pain(last night). Interestingly she has not had symptoms of urgency, frequency, dysuria, bladder pain for the last 7 days since the initial infection onset. Overnight she received cipro, fluids and supportive care. She now has no pain at all. There have been no temps greater than 99.2 since admission. We reviewed all of her imaging together, and discussed that the left kidney is not normal with what appears to be an upper pole cyst vs hydronephrosis with ureteropelvic junction obstruction with lower pole stone. It is hard to tell without the renal pelvis filling with contrast, the images are not delayed enough for thorough delineation of the anatomy. We discussed all of the risks and benefits of proceeding with cystoscopy and ureteral stent insertion today. She has no complaints at present, but fears the pain coming back. We outlined a plan. We will see if she is afebrile for 24hrs, await culture results and continue antibiotics. If any issues overnight, will proceed with stent insertion tomorrow. If ok, will discharge on oral antibiotics with plan for further intervention and imaging as outpatient. REPLACED BY [facility] Medical History Endometriosis Kidney cysts Migraine Ureter obstruction Home Medications hydrocodone-acetaminophen 5-325mg 5mg-325mg 1 tab PO Q6H PRN PRN Pain 3 days #12 TABLETS 11/03/22 [Rx Last Taken Unknown] ondansetron 4 mg disintegrating tablet 4 mg PO Q8H PRN PRN Nausea #20 tabs 11/03/22 [Rx Last Taken Unknown] sulfamethoxazole 800 mg-trimethoprim 160 mg tablet (Bactrim DS) 1 tab PO BID antibitoic #28 tabs 11/03/22 [Rx Last Taken Unknown] Allergy/AdvReac Type Severity Reaction Status Date / Time Penicillins Allergy Angioedema Verified 11/05/22 20:02 Surgical History H/O hernia repair H/O tubal ligation Hx of cholecystectomy Social History Smoking Status: Never smoker alcohol intake: current alcohol intake frequency: holidays/special occasions only substance use type: does not use ROS Constitutional Constitutional: Reports chills and fever(s) Eyes Eyes: Reports systems reviewed and no addt'l complaints, except as documented ENT HEENT: Reports systems reviewed and no addt'l complaints, except as documented Cardiovascular Cardiovascular: Reports abdominal pain and nausea; Denies chest pain, dyspnea or vomiting Respiratory/Chest Respiratory/Chest: Reports systems reviewed and no addt'l complaints, except as documented Gastrointestinal Gastrointestinal: Reports abdominal pain and nausea Genitourinary Genitourinary: Reports flank pain and low back pain; Denies burning urination, dysuria, hematuria, urinary hesitancy or urinary urgency Musculoskeletal Musculoskeletal: Reports systems reviewed and no addt'l complaints, except as documented Integumentary Integumentary: Reports systems reviewed and no addt'l complaints, except as documented Neurologic Neurologic: Reports systems reviewed and no addt'l complaints, except as documented Psychiatric Psychiatric: Reports systems reviewed and no addt'l complaints, except as documented Endocrine Endocrinology: Reports systems reviewed and no addt'l complaints, except as documented Hematologic/Lymphatic Hematologic/Lymphatic: Reports systems reviewed and no addt'l complaints, except as documented Allergic/Immunologic Allergic/Immunologic: Reports systems reviewed and no addt'l complaints, except as documented Vital Signs Vital Signs Vital Signs: 11/05/22 23:50 11/06/22 05:43 11/06/22 08:18 Temperature 98.2 F 98.8 F Temperature Source Oral Oral Pulse Rate 98 101 H Pulse Strength Respiratory Rate 18 20 H Blood Pressure 139/78 H 121/76 H Blood Pressure Mean 98 91 Blood Pressure Source Monitor Monitor Blood Pressure Position Semi-Fowlers Sitting Blood Pressure Location Left Forearm Left Arm Pulse Ox 98 99 Oxygen Delivery Method Room Air Room Air Room Air 11/06/22 11:40 11/06/22 10:00 11/06/22 17:40 Temperature 98.7 F 98.9 F Temperature Source Oral Oral Pulse Rate 95 97 Pulse Strength Normal (2+) Respiratory Rate 18 18 Blood Pressure 134/80 H 128/82 H Blood Pressure Mean 98 97 Blood Pressure Source Monitor Monitor Blood Pressure Position Semi-Fowlers Semi-Fowlers Blood Pressure Location Left Arm Left Arm Pulse Ox 98 99 Oxygen Delivery Method Room Air Room Air 11/06/22 20:55 Temperature 98.6 F Temperature Source Oral Pulse Rate 95 Pulse Strength Respiratory Rate 18 Blood Pressure 140/85 H Blood Pressure Mean 103 Blood Pressure Source Monitor Blood Pressure Position Semi-Fowlers Blood Pressure Location Left Arm Pulse Ox 98 Oxygen Delivery Method Room Air Weight Weight: 130.2 kg Body Mass Index (BMI) 43.6 Physical Exam Const alert, oriented x3 and no apparent distress General Appearance: cooperative, comfortable, well kempt and well developed HEENT normocephalic, head/scalp atraumatic, hearing grossly normal bilaterally, external ears normal, external nose normal and moist oral mucous membranes Eyes General Eye: normal appearance of both eyes Neck supple General: trachea midline Lymph Lymphatic: no lymphedema noted Chest inspection of chest normal Chest: symmetrical chest wall rise Resp normal respiratory effort, normal air movement and no retractions Effort and Inspection: able to speak in complete sentences and symmetric chest movement Cardio regular rate GI normal to inspection, nondistended, normoactive bowel sounds, soft to palpation and non-tender no CVA tenderness Back/Spine no CVA tenderness Skin no rashes or lesions noted, no wounds, skin turgor normal and no jaundice Neuro oriented x3, CN's II-XII intact bilaterally and moves all extremities Psych mental status grossly normal and thought process normal Results Lab / Micro Data 11/06/22 05:50 11/06/22 05:50 Labs: Laboratory Results - last 24 hr 11/06/22 05:50: WBC 9.1, RBC 3.89 L, Hgb 10.9 L, Hct 34.3 L, MCV 88.2, MCH 28.0, MCHC 31.8 L, RDW Std Deviation 42.5, RDW Coeff of Krista 13.2, Plt Count 294, MPV 9 .9, Immature Gran % (Auto) 0.800, Neut % (Auto) 73.9 H, Lymph % (Auto) 16.2 L, [place] % (Auto) 7.2, Eos % (Auto) 1.7, Baso % (Auto) 0.2, Absolute Neuts (auto) 6.7, Absolute Lymphs (auto) 1.47, Nucleated RBC % 0, Sodium 137, Potassium 3.5, Chloride 105, Carbon Dioxide 26.0, Anion Gap 6, BUN 8, Creatinine 0.77, Estim Creat Clear Calc 92.09, Est GFR (MDRD) Af Amer 104, Est GFR (MDRD) Non-Af 86, BUN/Creatinine Ratio 10.4, Glucose 133 H, Calcium 9.2 Assessment & Plan Assessment/Plan (1) Left renal stone: (2) Hydronephrosis of left kidney: (3) Persistent fever: (4) Complicated urinary tract infection: (5) Pyelonephritis: PLAN: Plan continue cipro await culture results continue supportive care if fever etc, will proceed with cystoscopy and stent insertion will reevaluate in the morning.
[2022-11-07 02:55] VITALS: BP 124/79; PULSE 95; RESP 18; TEMP 36.8; O2SAT 96
[2022-11-07] MEDS: Lactated Ringers 1,000 ML 100 ML IV (05:30)
[2022-11-07] MEDS: Ketorolac 30 MG/ML Syringe IV (06:19)
--- NOTE | 2022-11-07 08:26 | DCINST_ITS ---
Discharge Instructions Diet Discharge Diet: No restrictions Activity Discharge Activity: Return to Normal Activity Dressing / Incision Call your doctor if you observe: Fever of 101 or Higher, Inability to urinate and Inability to have a bowel movement Follow Up Care Please Follow Up With: Mary Rodriguez MD Test Results: Test results from this visit will be discussed in further detail at your follow- up appointment, if applicable. Discharge Plan Admission Admit Date/Time: 11/05/22 23:36 Attending Provider: Mary Rodriguez Primary Care Provider: Care PhysicianCa Primary Discharge Orders/Prescriptions Prescriptions: New ciprofloxacin HCl [Cipro] 500 mg tablet 500 mg PO BID Qty: 14 0RF Continued ondansetron 4 mg tablet,disintegrating 4 mg PO Q8H PRN PRN (Reason: Nausea) Qty: 20 0RF hydrocodone-acetaminophen 5-325 mg tablet 1 tab PO Q6H PRN PRN (Reason: Pain) 3 Days Qty: 12 0RF Discontinued sulfamethoxazole-trimethoprim [Bactrim DS] 800-160 mg tablet 1 tab PO BID Qty: 28 0RF Referrals / Follow Up: Care Physician,Ca Primary [Primary Care Provider] - Disposition Disposition (needs filled in before D/C Order can be placed): Home, Self Care
[2022-11-07] MEDS: Ciprofloxacin 400 MG/200 ML BAG 200 MG IV (09:35)
[2022-11-07 09:38] VITALS: BP 158/98; PULSE 89; RESP 18; TEMP 36.7; O2SAT 99
--- NOTE | 2022-11-07 09:48 | PHA.DC.MC.R ---
Pharmacy [facility] Pharmacy Service has performed discharge medication reconciliation and counseling for this patient. The patient was counseled on the following discharge medications and changes in medications for homegoing were reviewed. 1. CIPRO The Reason for Use, instructions for use, and potential side effects were reviewed for all new medications. The patient's questions regarding all of their medications were answered. The patient was able to verbally demonstrate an understanding of their discharge medications. The patient's discharge medication list was reviewed for discrepancies and discrepancies were resolved. Patient counselled by Julius Hanna PharmD candidate Medications at Discharge Home Medications hydrocodone-acetaminophen 5-325mg 5mg-325mg 1 tab PO Q6H PRN PRN Pain 3 days #12 TABLETS 11/03/22 ondansetron 4 mg disintegrating tablet 4 mg PO Q8H PRN PRN Nausea #20 tabs 11/03/22 ciprofloxacin HCl 500 mg tablet (Cipro) 500 mg PO BID #14 tabs 11/07/22
[2022-11-07 11:37] VITALS: BP 138/88; PULSE 88; RESP 16; TEMP 36.7; O2SAT 97
[2022-11-17 12:54] LABS: Source Kidney
== END 2022-11-07 11:24 | disposition home or self-care (01) | DRG 463 ==
LOC: ED 22:13 → MS3 23:45
PROVIDERS: Admitting Provider Urology; Emergency Provider Emergency Medicine; Visit Provider Urology
DX: N13.6 Pyonephrosis (principal); N16 Renal tubulo-interstitial disorders in diseases classified elsewhere; N28.1 Cyst of kidney, acquired; Z79.2 Long term (current) use of antibiotics
CPT/HCPCS: 36415; 74177; 80048; 80053; 81001; 82360; 83605; 83690; 85025; 85610; 85730; 87040; 87086; 87088; 87186; 93005; 96374; 96375; 99283; 99284; J7030; J7040; J7120; Q9967; A4216; J0744; J2405

== ENCOUNTER 2022-11-11 20:09 | Emergency (ER) | payer SELFPAY ==
[2022-11-11 20:10] VITALS: BP 147/90; PULSE 103; RESP 18; TEMP 36.3; O2SAT 93; BMI 42.9
--- NOTE | 2022-11-11 22:32 | EX.ED.DYSGE1 ---
HPI History of Present Illness Chief Complaint: Other, Pain/Inj Informant: patient and family Narrative Narrative: Patient is a 47-year-old female who is recent mid to the hospital secondary to kidney stone and UTI. She states she was placed on Cipro by the urologist and was advised she needs to be on it for approximately 7 more days. She states that ever since taking the Cipro she has had profuse diarrhea. She states that there is no history of ulcerative colitis or Crohn's disease and she denies any previous history of C. difficile. She states she has been drinking Pedialyte to keep yourself hydrated but feels like she cannot tolerate the antibiotic any longer and secondary to this comes in for evaluation [facility] Medical History Endometriosis Kidney cysts Migraine Ureter obstruction Home Medications hydrocodone-acetaminophen 5-325mg 5mg-325mg 1 tab PO Q6H PRN PRN Pain 3 days #12 TABLETS 11/03/22 [Rx Last Taken Unknown] ondansetron 4 mg disintegrating tablet 4 mg PO Q8H PRN PRN Nausea #20 tabs 11/03/22 [Rx Last Taken Unknown] ciprofloxacin HCl 500 mg tablet (Cipro) 500 mg PO BID #14 tabs 11/07/22 [Rx Last Taken Unknown] diphenoxylate-atropine 2.5 mg-0.025 mg tablet (Lomotil) 1 tab PO TID PRN diarrhea 5 days #15 tabs 11/11/22 [Rx Last Taken Unknown] Allergy/AdvReac Type Severity Reaction Status Date / Time Penicillins Allergy Angioedema Verified 11/11/22 20:11 Surgical History H/O hernia repair H/O tubal ligation Hx of cholecystectomy Social History Smoking Status: Never smoker alcohol intake: current alcohol intake frequency: holidays/special occasions only substance use type: does not use ROS ROS ED Constitutional Constitutional ED: Denies chills or fever(s) ENT ENT ED: Denies sore throat Cardiovascular Cardiovascular: Denies chest pain Respiratory/Chest Respiratory/Chest: Denies cough or dyspnea Gastrointestinal Gastrointestinal: Reports diarrhea; Denies abdominal pain, nausea or vomiting Genitourinary Genitourinary ED: Reports hematuria; Denies dysuria Musculoskeletal Musculoskeletal: Reports back pain; Denies myalgias Integumentary Denies rash Neurologic Neurologic: Denies headache(s) Hematologic/Lymphatic Hematologic/Lymphatic: Denies easy bleeding or easy bruising EXAM Physical Exam Const Vital Signs: 11/11/22 20:10 11/11/22 22:49 Temperature 97.3 F L Temperature Source Temporal Pulse Rate 103 H Respiratory Rate 18 Respiratory Effort Normal Respiratory Pattern Normal Blood Pressure 147/90 H Blood Pressure Mean 109 Pulse Ox 93 Oxygen Delivery Method Room Air Positive well nourished, well developed and obese General Appearance ED: well developed Nutritional Appearance: obese HEENT HEENT Narrative: Mucous membranes are just slightly dry and tacky without secondary changes to suggest infection Eyes PERRL and EOMs intact bilaterally General Eye ED: Negative for scleral icterus Neck supple Resp normal respiratory effort and clear to auscultation bilaterally Cardio regular rate and regular rhythm Rate: other Other Details: Rate we will put as are plus 2 out of 4 bilaterally are equal and symmetric GI non-tender, non-distended and no masses GI Narrative: Abdomen is soft nontender nondistended with hyperactive bowel sounds no voluntary guarding or rigidity no pulsatile mass Auscultation: hyperactive bowel sounds Palpation: soft Extremity normal to inspection Extremity Narrative: Right upper extremity is neurovascularly intact. Patient has a 1 x 2 cm area of erythema with faint tubelike induration consistent with thrombophlebitis. No diffuse swelling to the arm and soft compartments going against compartment syndrome. No abscess formation or lymphangitic streaking noted. Neuro oriented x3 and CN's II-XII intact bilaterally Sensorium / Orientation: alert Psych mental status grossly normal Skin no rashes or lesions noted Skin Narrative: Skin turgor is normal General Skin Exam: Negative for jaundice MDM MDM MDM Narrative Medical decision making narrative: Patient presented to the ER with stable vitals and physical exam that only show changes consistent with mild dehydration. We discussed providing IV fluids and checking electrolytes based on her recurrent diarrhea. Patient states she has been taking Pedialyte in and does not feel dehydrated. Therefore she does not want any laboratory studies obtained. Her main goal was to change antibiotics. Her urine culture from November 03 was reviewed and was positive for E. coli and sensitive to multiple medications. The urine culture from November 05 was also reviewed and did not have any growth at that time. Based on the November 05 culture not having any growth I discussed with patient that she no longer needs to be on Cipro. She states however that the urologist that she was seen by in the hospital (Dr. Rodriguez) wanted her to stay on antibiotics secondary to the hydronephrosis and concern for stagnant urine. Therefore at this time patient was advised that she should stop the Cipro and begin the Bactrim which she has at home as the culture from November 03 shows it is sensitive to this. As there is a potential for C. difficile as a cause of her diarrhea she has been on antibiotics a outpatient stool study will be obtained. However at this time as she has no signs of systemic infection and only mild dehydration by exam and patient does not want any further inpatient testing she will be discharged home but started on Lomotil to help prevent recurrent diarrhea as she will continue antibiotic. History & Record Review Discussion w/independent historian: Patient and Family Discharge Plan Triage Chief Complaint: Other, Pain/Inj ED Provider: Darrel Flores Dx/Rx/DC Orders Clinical Impression: Diarrhea, Left renal stone, Mild dehydration, Thrombophlebitis Instructions: ED Dehydration (Adult), ED Diarrhea, Unknown Cause Prescriptions: New diphenoxylate-atropine [Lomotil] 2.5-0.025 mg tablet 1 tab PO TID PRN (Reason: diarrhea) 5 Days Qty: 15 0RF No Action ondansetron 4 mg tablet,disintegrating 4 mg PO Q8H PRN PRN (Reason: Nausea) Qty: 20 0RF hydrocodone-acetaminophen 5-325 mg tablet 1 tab PO Q6H PRN PRN (Reason: Pain) 3 Days Qty: 12 0RF ciprofloxacin HCl [Cipro] 500 mg tablet 500 mg PO BID Qty: 14 0RF Other Ambulatory Orders: ENTERIC PATHOGEN PANEL STOOL (Routine) Timeframe: 3 Days Facility: [facility] - Location: Laboratory Ordered By: Dr. Darrel Flores Primary Care Provider: Care Physician,No Primary Referrals: Care Physician,No Primary [Primary Care Provider] - Activity Restrictions/Additional Instructions: Your urine culture from November 03 shows that the E. coli causing the infection is sensitive to Bactrim. Therefore stop the Cipro that you were given as you are having difficulty with diarrhea from it and begin the Bactrim that you have at home. Take Lomotil as directed to help resolve any further diarrhea and keep yourself well-hydrated. Please bring back a stool sample as directed however to ensure there is no C. difficile present. Disposition Disposition: Home, Self Care Discharge Date/Time: 11/11/22 22:51
== END 2022-11-11 22:51 | disposition home or self-care (01) ==
PROVIDERS: Emergency Provider Emergency Medicine; Visit Provider Emergency Medicine
DX: R19.7 Diarrhea, unspecified (principal); E86.0 Dehydration; N20.0 Calculus of kidney; I80.9 Phlebitis and thrombophlebitis of unspecified site; Z90.49 Acquired absence of other specified parts of digestive tract
CPT/HCPCS: 99282

== ENCOUNTER 2023-06-19 20:22 | Emergency (ER) | payer OTHER, SELFPAY ==
[2023-06-19 20:24] VITALS: BP 155/102; PULSE 98; RESP 16; TEMP 37.6; O2SAT 98; BMI 43.7
--- NOTE | 2023-06-19 22:27 | EX.ED.DYSGE1 ---
HPI History of Present Illness Chief Complaint: General Illness Informant: patient Onset/Context/Timing Onset: Days Context: Gradual Onset Timing: Intermittent Current Severity: Mild Maximum Severity: Mild Narrative Narrative: 48-year-old female for medical history of a kidney stone. This is the last week she has had left nasal sinus congestion and some periorbital discomfort. No significant fever. No cough. No sore throat or earache. Said it feels like pressure. She is having no sinus drainage. Says at times it itches. Its better when she is supine. Denies any facial trauma. No severe headache. No neurological symptoms. Prior similar symptoms: No Recent Illness/Hospitalization: No PFSH PFSH Medical History Endometriosis Kidney cysts Migraine Pyelonephritis Ureter obstruction Home Medications hydrocodone-acetaminophen 5-325mg 5mg-325mg 1 tab PO Q6H PRN PRN Pain 3 days #12 TABLETS 11/03/22 [Rx Last Taken Unknown] ondansetron 4 mg disintegrating tablet 4 mg PO Q8H PRN PRN Nausea #20 tabs 11/03/22 [Rx Last Taken Unknown] ciprofloxacin HCl 500 mg tablet (Cipro) 500 mg PO BID #14 tabs 11/07/22 [Rx Last Taken Unknown] diphenoxylate-atropine 2.5 mg-0.025 mg tablet (Lomotil) 1 tab PO TID PRN diarrhea 5 days #15 tabs 11/11/22 [Rx Last Taken Unknown] prednisone 20 mg tablet 40 mg (2 x 20 mg) PO DAILY 7 days #14 tabs 06/19/23 [Rx Last Taken Unknown] Allergy/AdvReac Type Severity Reaction Status Date / Time Penicillins Allergy Angioedema Verified 06/19/23 20:26 Surgical History H/O hernia repair H/O tubal ligation Hx of cholecystectomy Social History Smoking Status: Never smoker alcohol intake: current alcohol intake frequency: holidays/special occasions only substance use type: does not use ROS ROS ED ROS Narrative No vomiting or diarrhea. Review of Systems ROS Unobtainable: Denies due to encephalopathy Constitutional Constitutional ED: Denies chills or fever(s) Eyes Eyes: Denies blurry vision ENT ENT ED: Denies ear pain, rhinorrhea or sore throat Cardiovascular Cardiovascular: Denies chest pain or palpitations Respiratory/Chest Respiratory/Chest: Reports cough; Denies dyspnea Gastrointestinal Gastrointestinal: Denies abdominal pain Genitourinary Genitourinary ED: Denies dysuria or hematuria Musculoskeletal Musculoskeletal: Denies arthralgias, back pain, myalgias or neck pain Integumentary Denies abscess or Abrasions Neurologic Neurologic: Denies headache(s) or paresthesias Psychiatric Psychiatric: Denies anxiety or depression Endocrine Endocrinology: Denies cold intolerance Hematologic/Lymphatic Hematologic/Lymphatic: Reports none Allergic/Immunologic Allergic/Immunologic ED: Denies mouth swelling, tongue swelling or urticaria EXAM Physical Exam Narrative Exam Narrative: Well-appearing 48-year-old female. Vital signs are stable. Initial blood pressure 155/102. Temperature nine 9.6. HEENT exam TMs normal. Posterior pharynx normal and large but not infected tonsils. Nasal turbinates are swollen there is no drainage or discharge. No frontal or maxillary sinus tenderness. Pupils round reactive light. No proptosis. No trauma. Neck nontender. No lymphadenopathy. Lungs clear to auscultation. Heart regular rhythm no murmur. Abdomen soft nontender. Moving all 4 extremities. 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 Dorsi and plantarflexion. Neurologically patient is awake alert no focal motor deficit. NIH is 0. Const Vital Signs: 06/19/23 20:24 06/19/23 21:36 Temperature 99.6 F H Temperature Source Oral Pulse Rate 98 Respiratory Rate 16 Respiratory Effort Normal Non-Labored Respiratory Pattern Normal Blood Pressure 155/102 H Blood Pressure Mean 119 Pulse Ox 98 Oxygen Delivery Method Room Air Positive well nourished and well developed; Negative for cachectic, contractures or unkempt General Appearance ED: well developed and NAD; Negative for unkempt, cachectic, contractures, cyanotic, diaphoretic or pallor Nutritional Appearance: Negative for cachectic HEENT Reports TM's clear and moist mucous membranes; Denies dry mucous membranes Negative for trauma or tenderness Tympanic Membrane ED: Yes TM's clear Mouth ED: No dry mucous membranes Mouth: No dry mucous membranes Eyes PERRL and EOMs intact bilaterally General Eye ED: Negative for pale conjunctiva or scleral icterus Neck no lymphadenopathy, supple and no JVD General: Negative for tenderness Lymph Lymphatic: Negative for other Chest Wall inspection of chest normal and palpation of chest normal Chest: Negative for other Resp normal respiratory effort and clear to auscultation bilaterally Effort and Inspection: Negative for retractions Auscultation: Negative for rales, rhonchi or wheezes Cardio regular rate, regular rhythm, S1 normal heart sound, S2 normal heart sound and no murmurs Palpation: Negative for palpable S3 or palpable S4 Rate: Negative for bradycardia or tachycardic Rhythm: Negative for abnormal rhythm GI normal to inspection, nondistended, normoactive bowel sounds, non-tender, non-distended and no masses Inspection: Negative for abdominal distention Auscultation: normoactive bowel sounds Palpation: soft; Negative for tender, guarding, mass or rebound tenderness present Back/Spine no CVA tenderness General Back: Negative for CVA tenderness Cervical Spine: Negative for cervical spine tenderness Thoracic Spine / Upper Back: Negative for thoracic spinal tenderness or paraspinal muscle tenderness Extremity normal to inspection General Extremety ED: Negative for edema or tenderness General Extremity: Negative for edema Neuro oriented x3 and CN's II-XII intact bilaterally Sensorium / Orientation: alert; Negative for orientation impaired, lethargic or stuporous Motor Exam: strength 5/5 throughout; Negative for general weakness or strength abnormal Psych mental status grossly normal Appearance: Negative for unkempt Attitude: No agitated Mood & Affect: Negative for depressed, anxious or tearful Skin no rashes or lesions noted, no wounds and skin turgor normal General Skin Exam: Negative for jaundice or pallor Lesions: No lesion noted Rashes: No rashes noted Trauma: Negative for abrasion Wounds: Negative for wounds noted MDM MDM MDM Narrative Medical decision making narrative: 48-year-old female describes nasal congestion which may be seasonal. At times there is itching. She has no frontal maxillary sinus tenderness. She is having no nasal discharge. We discussed treatment options. I did offer her a CAT scan but told her I did not think this was infected. She is comfortable with oral steroids for a week at 40 mg. Given first dose here. And if not improving we can get a follow-up CAT scan or she can follow-up with a primary care provider. History & Record Review Discussion w/independent historian: Patient and Family Discharge Plan Triage Chief Complaint: General Illness ED Provider: Eliu Torres Dx/Rx/DC Orders Clinical Impression: Congestion of nasal sinus Instructions: Sinus Problems Dx Prescriptions: New prednisone 20 mg tablet 40 mg PO DAILY 7 Days Qty: 14 0RF No Action ondansetron 4 mg tablet,disintegrating 4 mg PO Q8H PRN PRN (Reason: Nausea) Qty: 20 0RF hydrocodone-acetaminophen 5-325 mg tablet 1 tab PO Q6H PRN PRN (Reason: Pain) 3 Days Qty: 12 0RF ciprofloxacin HCl [Cipro] 500 mg tablet 500 mg PO BID Qty: 14 0RF diphenoxylate-atropine [Lomotil] 2.5-0.025 mg tablet 1 tab PO TID PRN (Reason: diarrhea) 5 Days Qty: 15 0RF Primary Care Provider: Care Physician,No Primary Referrals: Mauricio Maldonado MD [Med Staff - Valve Repairer Reclamation] - 1 Week if not improving Care Physician,No Primary [Primary Care Provider] - Activity Restrictions/Additional Instructions: Most likely sinus congestion. No signs of bacterial infection. Prednisone 40 mg a day for the next week. If not improving follow-up and we can always get a CAT scan. Disposition Disposition: Home, Self Care
[2023-06-19 22:29] VITALS: BP 150/79; PULSE 68; RESP 14; TEMP 36.4; O2SAT 99
[2023-06-19] MEDS: predniSONE 20 MG Tablet 40 MG PO (22:29)
== END 2023-06-19 22:33 | disposition home or self-care (01) ==
LOC: ED 22:31
PROVIDERS: Emergency Provider Emergency Medicine; Visit Provider Emergency Medicine
DX: R09.81 Nasal congestion (principal); Z90.49 Acquired absence of other specified parts of digestive tract; Z98.51 Tubal ligation status
CPT/HCPCS: 99283

== ENCOUNTER 2023-06-23 20:46 | Emergency (ER) | payer OTHER, SELFPAY ==
[2023-06-23 20:47] VITALS: BP 174/108; PULSE 85; RESP 16; TEMP 36.4; O2SAT 96; BMI 43.4
--- NOTE | 2023-06-23 21:45 | CT_ITS ---
EXAM: CT HEAD WITHOUT INTRAVENOUS CONTRAST CLINICAL INDICATION: headache TECHNIQUE: Multiple axial images were obtained of the head without intravenous contrast. This CT exam was performed using one or more of the following dose reduction techniques: automated exposure control, adjustment of the mA and/or kV according to patient size, and/or use of iterative reconstruction technique. COMPARISON: No relevant prior studies available. FINDINGS: BRAIN AND EXTRA-AXIAL SPACES: No significant abnormality. No intra- or extra-axial hemorrhage. No evidence of acute infarct. No intracranial mass or mass effect. There is preservation of the mccoy/white matter interface. Ventricles are appropriate for age. Basal cisterns are patent. BONES/JOINTS: No significant abnormality. No discrete lytic or blastic abnormalities. SINUSES: No significant findings. MASTOID AIR CELLS: No significant effusion. ORBITS: Punctate calcification at the optic disks perhaps indicated of drusen. Otherwise, normal CT appearance of the orbits. SELLA: Partially empty sella turcica is suspected. CT/Brain/Head without Contrast IMPRESSION: 1. Partially empty sella turcica is suspected. Follow-up as clinically indicated. Otherwise, no acute intracranial pathology is present. 2. Punctate calcification at the optic disks perhaps indicated of drusen. Otherwise, normal CT appearance of the orbits. Electronically Signed: Virgil Krishnamurthy DO at 22:32 EDT ,
[2023-06-23] MEDS: Ketorolac 30 MG/ML Syringe IV (21:56)
[2023-06-23] MEDS: DiphenhydrAMINE 50 MG/ML Syringe 25 MG IV (21:56)
[2023-06-23] MEDS: Metoclopramide 10 MG/2 ML Vial 5 MG IV (21:56)
[2023-06-23] MEDS: 0.9% Normal Saline (1000mL) 1,000 ML 1000 ML IV (21:57)
[2023-06-23 22:05] LABS: Absolute Neutrophil Count 8.4 X10^3/uL (2.0-7.7); Basophil# 0.04 X10^3/uL; Basophil% 0.3 % (0-1); Eosinophil# 0.08 X10^3/uL; Eosinophils% 0.6 % (0-5); Hematocrit 41.9 % (37-47); Hemoglobin 13.5 g/dL (12.0-15.0); Lymphocyte % 30.6 % (19-41); Mean Corp Hgb Conc 32.2 g/dL (32-36); Mean Corpuscular Hgb 27.6 pg (27.0-32.0); Mean Corpuscular Volume 85.5 fL (81-99); Monocyte# 0.79 X10^3/uL; Monocyte% 5.9 % (0-10); NRBC Flagged by Analyzer 0 % (0-5); Neutrophil # 8.36 X10^3/uL (2.7-7.7); Neutrophil % 62.2 % (47-70); Platelet Count 342 K/mm3 (150-450); RBC Distribution Width SD 39.8 fl (35.1-43.9); White Blood Count 13.4 K/mm3 (4.4-11.0)
[2023-06-23 22:11] LABS: Erythrocyte Sedimentation Rate 17 mm/hr (0-30)
[2023-06-23 22:20] LABS: Anion Gap 6 (5-15); BUN 19 mg/dL (7-18); BUN/Creat Ratio 21.7 RATIO (10-20); CRP 4.81 mg/L (0.0-3.0); Calcium,Total 9.3 mg/dL (8.5-10.1); Chloride 104 mmol/L (98-107); Creatinine, Serum 0.88 mg/dL (0.55-1.02); EST Glomerular Filtration Rate 73 mL/min (>60); Est Glom Filt Rate - Afr Amer 89 mL/min (>60); Estimated Creatinine Clearance 112.57 ml/min; Glucose 173 mg/dL (74-106); Potassium 3.7 mmol/L (3.5-5.1); Sodium Level 139 mmol/L (136-145)
--- NOTE | 2023-06-23 23:04 | EDS_ITS ---
HPI History of Present Illness Chief Complaint: Headache Informant: patient Onset/Context/Timing Onset: Days Narrative Narrative: Patient presents with nearly 1 week history of left periorbital headache and pressure behind her eyes. She states she feels like the skin on her upper lid is extremely sensitive to pain. She will get sharp shooting pain around her left eye. She was seen recently for this and started on steroids thinking this may be inflammatory/sinusitis. She was told if she was not improving she should come back for CT imaging and further testing. Patient states she actually did pretty well over the weekend but went back to work today, Friday. With looking at her computer and phone more today she noted increased pain. She does have light sensitivity. No nausea or vomiting. She still has 3 more days of steroids remaining. She did call and make an appointment to have her eyes checked today and has an appointment in 2 days. [facility] Medical History Endometriosis Kidney cysts Migraine Pyelonephritis Ureter obstruction Home Medications hydrocodone-acetaminophen 5-325mg 5mg-325mg 1 tab PO Q6H PRN PRN Pain 3 days #12 TABLETS 11/03/22 [Rx Last Taken Unknown] ondansetron 4 mg disintegrating tablet 4 mg PO Q8H PRN PRN Nausea #20 tabs 11/03/22 [Rx Last Taken Unknown] ciprofloxacin HCl 500 mg tablet (Cipro) 500 mg PO BID #14 tabs 11/07/22 [Rx Last Taken Unknown] diphenoxylate-atropine 2.5 mg-0.025 mg tablet (Lomotil) 1 tab PO TID PRN diarrhea 5 days #15 tabs 11/11/22 [Rx Last Taken Unknown] prednisone 20 mg tablet 40 mg (2 x 20 mg) PO DAILY 7 days #14 tabs 06/19/23 [Rx Last Taken Unknown] Allergy/AdvReac Type Severity Reaction Status Date / Time Penicillins Allergy Angioedema Verified 06/23/23 20:49 Surgical History H/O hernia repair H/O tubal ligation Hx of cholecystectomy Social History Smoking Status: Never smoker alcohol intake: current alcohol intake frequency: holidays/special occasions only substance use type: does not use ROS ROS ED Constitutional Constitutional ED: Denies chills or fever(s) Eyes Eyes: Reports other Details: Left periorbital pain ; Denies change in vision or discharge from eye(s) ENT ENT ED: Denies discharge from eye(s), rhinorrhea or sore throat Cardiovascular Cardiovascular: Denies chest pain Respiratory/Chest Respiratory/Chest: Denies cough or dyspnea Gastrointestinal Gastrointestinal: Denies abdominal pain, nausea or vomiting Musculoskeletal Musculoskeletal: Denies back pain or extremity pain Integumentary Denies Abrasions or rash Neurologic Neurologic: Reports headache(s); Denies weakness Psychiatric Psychiatric: Denies anxiety or depression Allergic/Immunologic Allergic/Immunologic ED: Denies lip swelling or urticaria EXAM Physical Exam Const Vital Signs: 06/23/23 20:47 Temperature 97.6 F L Temperature Source Temporal Pulse Rate 85 Respiratory Rate 16 Blood Pressure 174/108 H Blood Pressure Mean 130 Pulse Ox 96 Oxygen Delivery Method Room Air Positive well nourished and well developed General Appearance ED: well developed HEENT Reports moist mucous membranes Eyes PERRL and EOMs intact bilaterally Eyes Narrative: No periorbital edema. No erythema. Chest Wall inspection of chest normal and palpation of chest normal Resp normal respiratory effort and clear to auscultation bilaterally Cardio regular rate and regular rhythm GI non-tender Palpation: soft Extremity normal to inspection Neuro oriented x3 and no sensory deficits noted Motor Exam: strength 5/5 throughout Psych mental status grossly normal Skin no rashes or lesions noted MDM MDM MDM Narrative Medical decision making narrative: IV line initiated. Patient given Toradol, Reglan, Benadryl, and IV fluids. Labwork obtained to evaluate for leukocytosis, anemia, and electrolyte derangement. CT scan of the head obtained to evaluate for any acute abnormalities. Lab Data Attestation: I reviewed the patient's lab results. Labs: Laboratory Results - last 24 hr 06/23/23 21:52 WBC 13.4 H RBC 4.90 Hgb 13.5 Hct 41.9 MCV 85.5 MCH 27.6 MCHC 32.2 RDW Std Deviation 39.8 RDW Coeff of Krista 13.0 Plt Count 342 MPV 10.0 Immature Gran % (Auto) 0.400 Neut % (Auto) 62.2 Lymph % (Auto) 30.6 [place] % (Auto) 5.9 Eos % (Auto) 0.6 Baso % (Auto) 0.3 Absolute Neuts (auto) 8.4 H Absolute Lymphs (auto) 4.10 Nucleated RBC % 0 ESR 17 Sodium 139 Potassium 3.7 Chloride 104 Carbon Dioxide 29.0 Anion Gap 6 BUN 19 H Creatinine 0.88 Estim Creat Clear Calc 112.57 Est GFR (MDRD) Af Amer 89 Est GFR (MDRD) Non-Af 73 BUN/Creatinine Ratio 21.7 H Glucose 173 H Calcium 9.3 C-React Prot Ext Range 4.81 H Radiography Diagnostic Testing: Clinical Impression(s) from Imaging Studies Brain CT 06/23/23 21:45 IMPRESSION: 1. Partially empty sella turcica is suspected. Follow-up as clinically indicated. Otherwise, no acute intracranial pathology is present. 2. Punctate calcification at the optic disks perhaps indicated of drusen. Otherwise, normal CT appearance of the orbits. Electronically Signed: Virgil Krishnamurthy DO at 22:32 EDT , Treatment and Re-Evaluation :: White blood cell count elevated at 13.4, likely secondary to her steroid use. Chemistry studies unremarkable other than a glucose of 173. CRP is slightly elevated at 4.81 but sed rate is normal at 17. CT scan of the head reveals partially empty sella turcica. Punctate calcification is noted at the optic disc, perhaps indicating drusen. On repeat evaluation patient resting comfortably does report improvement in her symptoms. She already has an eye appointment scheduled in 2 days and will keep this. Given that she had improvement in her symptoms over the weekend when she was off work and had worsening symptoms today back at work with a lot of computer use, I wonder if eyestrain is not causing majority of her symptoms. This is discussed with her. She was referred to local PCP for follow-up as needed as well. Discharge Plan Triage Chief Complaint: Headache ED Provider: Lisa Castillo Dx/Rx/DC Orders Clinical Impression: Headache, Left facial pain Instructions: ED Headache Unspecified Prescriptions: No Action ondansetron 4 mg tablet,disintegrating 4 mg PO Q8H PRN PRN (Reason: Nausea) Qty: 20 0RF hydrocodone-acetaminophen 5-325 mg tablet 1 tab PO Q6H PRN PRN (Reason: Pain) 3 Days Qty: 12 0RF ciprofloxacin HCl [Cipro] 500 mg tablet 500 mg PO BID Qty: 14 0RF diphenoxylate-atropine [Lomotil] 2.5-0.025 mg tablet 1 tab PO TID PRN (Reason: diarrhea) 5 Days Qty: 15 0RF prednisone 20 mg tablet 40 mg PO DAILY 7 Days Qty: 14 0RF Primary Care Provider: Care Physician,No Primary Referrals: Mauricio Maldonado MD [Med Staff - Cash Sales Audit Clerk] - As Needed Care Physician,No Primary [Primary Care Provider] - Activity Restrictions/Additional Instructions: Please follow-up for your eye exam on Friday as discussed. Disposition Disposition: Home, Self Care
[2023-06-23 23:30] VITALS: BP 125/75; PULSE 75; RESP 18; TEMP 36.8; O2SAT 100
== END 2023-06-23 23:31 | disposition home or self-care (01) ==
PROVIDERS: Emergency Provider Emergency Medicine; Visit Provider Emergency Medicine
DX: R51.9 Headache, unspecified (principal); Z90.49 Acquired absence of other specified parts of digestive tract; Z98.51 Tubal ligation status
CPT/HCPCS: 70450; 80048; 85025; 85652; 86140; 96361; 96374; 96375; 99283; J7030

== ENCOUNTER 2023-10-14 16:10 | Emergency (ER) | payer OTHER, SELFPAY ==
[2023-10-14 16:11] VITALS: BP 171/90; PULSE 87; RESP 18; TEMP 36.2; O2SAT 100; BMI 43.1
[2023-10-14 17:01] LABS: Absolute Lymphocyte Count 1.74 X10^3/uL (0.83-4.51); Absolute Neutrophil Count 4.9 X10^3/uL (2.0-7.7); Basophil# 0.02 X10^3/uL; Basophil% 0.3 % (0-1); Eosinophils% 1.4 % (0-5); Hematocrit 41.8 % (37-47); Hemoglobin 13.4 g/dL (12.0-15.0); Lymphocyte # 1.74 X10^3/ul (0.83-4.51); Lymphocyte % 24.1 % (19-41); Mean Corp Hgb Conc 32.1 g/dL (32-36); Mean Corpuscular Hgb 27.5 pg (27.0-32.0); Mean Corpuscular Volume 85.8 fL (81-99); Monocyte# 0.47 X10^3/uL; Monocyte% 6.5 % (0-10); NRBC Flagged by Analyzer 0 % (0-5); Neutrophil # 4.85 X10^3/uL (2.7-7.7); Platelet Count 309 K/mm3 (150-450); RBC Distribution Width CV 12.6 % (11.6-14.6); RBC Distribution Width SD 39.3 fl (35.1-43.9); Red Blood Count 4.87 M/mm3 (4.2-5.4); White Blood Count 7.2 K/mm3 (4.4-11.0)
[2023-10-14 17:01] LABS: Mucous, Urine 0 SEEN /hpf (<or=2+); Squamous Epithelial Cells - UA 0 SEEN /hpf (5-10)
[2023-10-14 17:03] LABS: Color, Urine Yellow (Yellow); Glucose, Dipstick Normal (Normal); Ketone-Dipstick 15 mg/dl (Negative); Leukocyte Esterase-Dipstick 500 /ul (Negative); Nitrite-Dipstick Positive (Negative); Occult Blood-Urine 250 /ul (Negative); Protein-Dipstick 30 mg/dl (Negative); Urine Bilirubin Dipstick Negative (Negative); Urine Clarity Sl. Cloudy (Clear); Urine Urobilinogen 1 mg/dl (Normal)
[2023-10-14 17:17] LABS: Internal QC Validated? YES +Cl - CLEAR BKGD; Pregnancy, Serum, hCG Quali. NEGATIVE Negative; Record Kit Lot#, Serum Preg. 772476
--- NOTE | 2023-10-14 17:17 | CT_ITS ---
EXAM: CT ABDOMEN AND PELVIS WITHOUT INTRAVENOUS CONTRAST CLINICAL INDICATION: left flank pain TECHNIQUE: Helically acquired images were obtained of the abdomen and pelvis without intravenous contrast. This CT exam was performed using one or more of the following dose reduction techniques: automated exposure control, adjustment of the mA and/or kV according to patient size, and/or use of iterative reconstruction technique. RADIATION DOSE: CTDIvol = 24.14 mGy, DLP = 1278.69 mGy-cm COMPARISON: 11/03/2022 FINDINGS: LOWER THORAX: Unremarkable. Lung bases are clear. No cardiomegaly. No significant pericardial effusion. ABDOMEN: LIVER: Unremarkable. Homogeneous. GALLBLADDER AND BILE DUCTS: Cholecystectomy. No intra- or extrahepatic biliary ductal dilation. PANCREAS: Unremarkable. No focal cystic mass. SPLEEN: Unremarkable. Normal size without focal cystic or solid mass. ADRENALS: Unremarkable. No nodules. KIDNEYS AND URETERS: Continued markedly abnormal left kidney with probably combination of moderate hydronephrosis and possibly large 8.6 cm upper pole cyst. UPJ stricture still a possibility and further evaluation recommended. Stable several stones of the renal pelvis and lower pole calyces as much as 8 mm size. Stable 1.8 cm exophytic cyst of the left lower pole. Normal right kidney. STOMACH AND BOWEL: Evaluation of the GI tract is limited by absence of oral contrast. Cannot exclude stomach wall thickening. No dilated loops of bowel or evidence for obstruction. Cannot exclude segmental thickening of the feliciano of the small or large bowel. Cannot exclude enteritis or colitis. Moderate diffuse fecal retention. Appendix within normal limits. PELVIS: APPENDIX: No evidence of acute appendicitis. BLADDER: Unremarkable. REPRODUCTIVE: Unremarkable as visualized. No mass. ABDOMEN and PELVIS: INTRAPERITONEAL SPACE: Unremarkable. No ascites or other fluid collection. No free air. BONES/JOINTS: Unremarkable. No suspicious lytic or blastic abnormality. SOFT TISSUES: Stable postoperative changes of the anterior abdominal wall from previous hernia repair. No current hernia seen. VASCULATURE: Unremarkable. Abdominal aorta is non-dilated. LYMPH NODES: Unremarkable. No enlarged lymph nodes. CT/Abdomen/Pelvis without Cont IMPRESSION: Continued markedly abnormal left kidney. There may be chronic obstruction. Further evaluation with nuclear medicine renal scan recommended. Electronically Signed: Michael Griggs MD at 18:06 EDT ,
--- NOTE | 2023-10-14 17:17 | EX.ED.DYSGE1 ---
HPI History of Present Illness Chief Complaint: Flank Pain Detail of Chief Complaint: Left flank pain Informant: patient Narrative Narrative: Patient presents with complaint of not feeling well for the last 4 to 5 days. She complains of some discomfort in her left flank. She complains of brain fog and an odor to her urine. She has had some chills. Her urine looks somewhat milky. Patient states that she felt similarly about a year ago and had to be admitted because she had an obstructed left ureter due to some kidney stones and possible congenital abnormality. She was treated with antibiotics and resolved. She did not require any type of intervention. Patient describes intermittent pressure and discomfort in her left side but does not anything for pain currently. [facility] Medical History Endometriosis Kidney cysts Migraine Pyelonephritis Ureter obstruction Home Medications ?Medication ?Instructions ?Recorded ?Last Taken ?Type hydrocodone-acetaminophen 5-325mg 1 tab PO Q6H PRN PRN Pain 3 days 11/03/22 Unknown Rx 5mg-325mg #12 TABLETS ondansetron 4 mg disintegrating 4 mg PO Q8H PRN PRN Nausea #20 tabs 11/03/22 Unknown Rx tablet ciprofloxacin HCl 500 mg tablet 500 mg PO BID #14 tabs 11/07/22 Unknown Rx (Cipro) diphenoxylate-atropine 2.5 1 tab PO TID PRN diarrhea 5 days 11/11/22 Unknown Rx mg-0.025 mg tablet (Lomotil) #15 tabs prednisone 20 mg tablet 40 mg (2 x 20 mg) PO DAILY 7 days 06/19/23 Unknown Rx #14 tabs hydrocodone-acetaminophen 5-325mg 1 tab PO Q4H PRN PRN Pain 2 days 10/14/23 Unknown Rx 5mg-325mg #10 TABLETS sulfamethoxazole 800 1 tab PO BID #14 TABLETS 10/14/23 Unknown Rx mg-trimethoprim 160 mg tablet Allergy/AdvReac Type Severity Reaction Status Date / Time Penicillins Allergy Angioedema Verified 10/14/23 16:12 ciprofloxacin AdvReac Intermediate Other Verified 10/14/23 19:40 Surgical History H/O hernia repair H/O tubal ligation Hx of cholecystectomy Social History Smoking Status: Never smoker alcohol intake: current alcohol intake frequency: holidays/special occasions only substance use type: does not use ROS ROS ED Review of Systems ROS Unobtainable: other Constitutional Constitutional ED: Reports chills, lethargy and sweats; Denies fever(s) or weight loss Eyes Eyes: Denies blurry vision, change in vision or diplopia ENT ENT ED: Denies rhinorrhea or sore throat Cardiovascular Cardiovascular: Denies chest pain, orthopnea or racing heartbeat Respiratory/Chest Respiratory/Chest: Denies cough, dyspnea, dyspnea on exertion, orthopnea or sputum Gastrointestinal Gastrointestinal: Reports abdominal pain; Denies diarrhea, nausea or vomiting Genitourinary Genitourinary ED: Denies dysuria, hematuria or urinary frequency Musculoskeletal Musculoskeletal: Reports back pain; Denies arthralgias, myalgias or neck pain Integumentary Denies abscess, Abrasions or rash Neurologic Neurologic: Denies headache(s) or weakness Psychiatric Psychiatric: Denies anxiety, depression or suicidal thoughts Endocrine Endocrinology: Denies polydipsia, polyphagia or polyuria Hematologic/Lymphatic Hematologic/Lymphatic: Denies easy bleeding, easy bruising or lymphadenopathy Allergic/Immunologic Allergic/Immunologic ED: Denies mouth swelling, tongue swelling or urticaria EXAM Physical Exam Const Vital Signs: 10/14/23 16:11 10/14/23 18:11 10/14/23 20:00 Temperature 97.2 F L Temperature Source Temporal Pulse Rate 87 92 91 Respiratory Rate 18 18 16 Blood Pressure 171/90 H 134/88 H 133/91 H Blood Pressure Mean 117 103 105 Pulse Ox 100 96 97 Oxygen Delivery Method Room Air Room Air Room Air Positive well nourished and well developed General Appearance ED: well developed and NAD HEENT Reports TM's clear and moist mucous membranes normocephalic and atraumatic; Negative for trauma or tenderness Tympanic Membrane ED: Yes TM's clear Eyes PERRL and EOMs intact bilaterally General Eye ED: Negative for pale conjunctiva or scleral icterus Neck no lymphadenopathy, supple and no JVD General: Negative for tenderness Chest Wall inspection of chest normal and palpation of chest normal Chest: Negative for tenderness Resp normal respiratory effort and clear to auscultation bilaterally Effort and Inspection: Negative for respiratory distress or pain with movement Auscultation: Negative for rhonchi, wheezes or diminished lung sounds Cardio regular rate, regular rhythm, S1 normal heart sound, S2 normal heart sound and no murmurs Peripheral Pulses: pulses 2+ throughout GI normal to inspection, nondistended, normoactive bowel sounds, soft to palpation, non-tender, non-distended and no masses Back/Spine no CVA tenderness and no thoracic nor lumbar tenderness Extremity normal to inspection General Extremety ED: Negative for edema General Extremity: Negative for edema Neuro oriented x3, CN's II-XII intact bilaterally, no sensory deficits noted and gait normal Sensorium / Orientation: awake, alert, oriented to person, oriented to place and oriented to time Motor Exam: strength 5/5 throughout and strength abnormal Psych mental status grossly normal Skin no rashes or lesions noted and no wounds MDM MDM MDM Narrative Medical decision making narrative: Patient presents with flank pain. In the differential would be kidney stone versus UTI versus Ayden. IV line established. Patient did not want a thing for pain initially. CBC with differential obtained for white count 7.2 with hemoglobin 13 and platelet count of of 309. Chemistries unremarkable. BUN 10 and creatinine 0.86. LFTs were normal. hCG was negative. Urinalysis positive for nitrites as well as 500 leukocyte esterase and greater than 100 WBCs and +[address] of the flank obtained showed chronic ureteral obstruction with kidney stones within the kidney but no ureteral lithiasis. Discussed results with patient. Will start her on Rocephin 1 g IV which she has had in the past and tolerated well. Will send home with Bactrim. Did send a urine culture. Patient advised to follow-up with her urologist within next 2 to 5 days. Patient to return if worsening pain, fever, vomiting, or condition should worsen anyway. Lab Data Attestation: I reviewed the patient's lab results. Labs: Laboratory Results - last 24 hr 10/14/23 10/14/23 16:45 16:54 WBC 7.2 RBC 4.87 Hgb 13.4 Hct 41.8 MCV 85.8 MCH 27.5 MCHC 32.1 RDW Std Deviation 39.3 RDW Coeff of Krista 12.6 Plt Count 309 MPV 10.0 Immature Gran % (Auto) 0.700 Neut % (Auto) 67.0 Lymph % (Auto) 24.1 [place] % (Auto) 6.5 Eos % (Auto) 1.4 Baso % (Auto) 0.3 Absolute Neuts (auto) 4.9 Absolute Lymphs (auto) 1.74 Nucleated RBC % 0 Sodium 140 Potassium 3.9 Chloride 105 Carbon Dioxide 29.0 Anion Gap 6 BUN 10 Creatinine 0.86 Estim Creat Clear Calc 114.62 Est GFR (MDRD) Af Amer 91 Est GFR (MDRD) Non-Af 75 BUN/Creatinine Ratio 11.6 Glucose 124 H Calcium 9.6 Total Bilirubin 0.30 AST 9 L ALT 17 Alkaline Phosphatase 73 Total Protein 7.5 Albumin 3.5 Globulin 4.0 Albumin/Globulin Ratio 0.9 Serum , Qual NEGATIVE Urine Color Yellow Urine Clarity Sl. Cloudy Urine pH 6.0 Ur Specific [place] 1.020 Urine Protein 30 H Urine Glucose (UA) Normal Urine Ketones 15 H Urine Occult Blood 250 H Urine Nitrite Positive H Urine Bilirubin Negative Urine Urobilinogen 1 H Ur Leukocyte Esterase 500 H Urine RBC 0-5 SEEN Urine WBC >100 SEEN Ur Squamous Epith Cells 0 SEEN Urine Bacteria 3+ Urine Mucus 0 SEEN Radiography Diagnostic Testing: Clinical Impression(s) from Imaging Studies Abdomen/Pelvis CT 10/14/23 17:17 IMPRESSION: Continued markedly abnormal left kidney. There may be chronic obstruction. Further evaluation with nuclear medicine renal scan recommended. Electronically Signed: Michael Griggs MD at 18:06 EDT , Discharge Plan Triage Chief Complaint: Flank Pain ED Provider: Racquel Chen Dx/Rx/DC Orders Clinical Impression: Urinary tract infection Instructions: Urinary Tract Infections in Women, ED Pyelonephritis, Female (Adult) Prescriptions: New hydrocodone-acetaminophen 5-325 mg tablet 1 tab PO Q4H PRN PRN (Reason: Pain) 2 Days Qty: 10 0RF sulfamethoxazole-trimethoprim 800-160 mg tablet 1 tab PO BID Qty: 14 0RF No Action ondansetron 4 mg tablet,disintegrating 4 mg PO Q8H PRN PRN (Reason: Nausea) Qty: 20 0RF hydrocodone-acetaminophen 5-325 mg tablet 1 tab PO Q6H PRN PRN (Reason: Pain) 3 Days Qty: 12 0RF ciprofloxacin HCl [Cipro] 500 mg tablet 500 mg PO BID Qty: 14 0RF diphenoxylate-atropine [Lomotil] 2.5-0.025 mg tablet 1 tab PO TID PRN (Reason: diarrhea) 5 Days Qty: 15 0RF prednisone 20 mg tablet 40 mg PO DAILY 7 Days Qty: 14 0RF Primary Care Provider: Care Physician,No Primary Referrals: Mary Rodriguez MD [Med Staff - Active Staff] - 3-5 Days Care Physician,No Primary [Primary Care Provider] - Print Language: Kittitian Disposition Disposition: Home, Self Care
[2023-10-14 17:24] LABS: ALB/GLOB Ratio 0.9 RATIO (0.9-2.4); AST(SGOT) 9 U/L (15-37); Alanine Aminotransfer ALT/SGPT 17 U/L (13-56); Albumin, Serum 3.5 g/dL (3.2-5.0); Alkaline Phosphatase 73 U/L (45-117); Anion Gap 6 (5-15); BUN 10 mg/dL (7-18); BUN/Creat Ratio 11.6 RATIO (10-20); Calcium,Total 9.6 mg/dL (8.5-10.1); Chloride 105 mmol/L (98-107); Creatinine, Serum 0.86 mg/dL (0.55-1.02); EST Glomerular Filtration Rate 75 mL/min (>60); Est Glom Filt Rate - Afr Amer 91 mL/min (>60); Estimated Creatinine Clearance 114.62 ml/min; Glucose 124 mg/dL (74-106); Potassium 3.9 mmol/L (3.5-5.1); Protein, Total 7.5 g/dL (6.4-8.2); Sodium Level 140 mmol/L (136-145)
[2023-10-14 17:28] LABS: White Blood Cells >100 SEEN /hpf (0-5)
[2023-10-14 17:29] LABS: Bacteria 3+ /hpf (None Seen); Red Blood Cells-Urine 0-5 SEEN /hpf (0-5)
[2023-10-14 18:11] VITALS: BP 134/88; PULSE 92; RESP 18; O2SAT 96
[2023-10-14 20:00] VITALS: BP 133/91; PULSE 91; RESP 16; O2SAT 97
[2023-10-14] MEDS: Ceftriaxone 1 GM/50 ML BAG IV (20:14)
[2023-10-14 20:44] VITALS: BP 128/84; PULSE 85; RESP 16; TEMP 36.8; O2SAT 97
== END 2023-10-14 20:50 | disposition home or self-care (01) ==
PROVIDERS: Emergency Provider Emergency Medicine; Visit Provider Emergency Medicine
DX: N39.0 Urinary tract infection, site not specified (principal); Z90.49 Acquired absence of other specified parts of digestive tract; Z98.51 Tubal ligation status
CPT/HCPCS: 74176; 80053; 81001; 84703; 85025; 87086; 87088; 87186; 96365; 99284; J7030; J7050; A4216; J0744

== ENCOUNTER 2024-06-29 11:08 | Emergency (ER) | payer OTHER, MEDICAID, SELFPAY ==
[2024-06-29 11:09] VITALS: BP 183/85; PULSE 90; RESP 16; TEMP 36.6; O2SAT 97; BMI 44.6
--- NOTE | 2024-06-29 13:33 | EX.ED.DYSGE1 ---
HPI History of Present Illness Chief Complaint: Other, Pain/Inj Narrative Narrative: Patient presenting today due to neck pain and L arm pain she has had over the past 4 days. She reports that she had her arms above her head painting for several hours the day prior to the pain starting. She denies any injury to her neck or arm. She reports feeling like her muscles are spasming and feeling knots in the muscles of her neck. She also reports pain to her left shoulder and left upper arm. She denies paresthesias, fevers, and chills. She has tried taking Tylenol and ibuprofen with minimal relief. She has gotten some relief from heat. [facility] Medical History Ureter obstruction Kidney cysts Pyelonephritis Migraine Endometriosis Home Medications ?Medication ?Instructions ?Recorded ?Last Taken ?Type hydrocodone-acetaminophen 5-325mg 1 tab PO Q6H PRN PRN Pain 3 days 11/03/22 Unknown Rx 5mg-325mg #12 TABLETS ondansetron 4 mg disintegrating 4 mg PO Q8H PRN PRN Nausea #20 tabs 11/03/22 Unknown Rx tablet ciprofloxacin HCl 500 mg tablet 500 mg PO BID #14 tabs 11/07/22 Unknown Rx (Cipro) diphenoxylate-atropine 2.5 1 tab PO TID PRN diarrhea 5 days 11/11/22 Unknown Rx mg-0.025 mg tablet (Lomotil) #15 tabs prednisone 20 mg tablet 40 mg (2 x 20 mg) PO DAILY 7 days 06/19/23 Unknown Rx #14 tabs hydrocodone-acetaminophen 5-325mg 1 tab PO Q4H PRN PRN Pain 2 days 10/14/23 Unknown Rx 5mg-325mg #10 TABLETS sulfamethoxazole 800 1 tab PO BID #14 TABLETS 10/14/23 Unknown Rx mg-trimethoprim 160 mg tablet hydrocodone-acetaminophen 5-325mg 1 tab PO Q4H PRN PRN Pain 3 days 06/29/24 Unknown Rx 5mg-325mg #10 TABLETS metaxalone 800 mg tablet 800 mg PO TID 7 days #21 tabs 06/29/24 Unknown Rx Allergy/AdvReac Type Severity Reaction Status Date / Time Penicillins Allergy Angioedema Verified 06/29/24 11:09 ciprofloxacin AdvReac Intermediate Other Verified 06/29/24 11:09 Surgical History H/O tubal ligation Hx of cholecystectomy H/O hernia repair Social History Smoking Status: Never smoker alcohol intake: current alcohol intake frequency: holidays/special occasions only substance use type: does not use ROS ROS ED Constitutional Constitutional ED: Denies chills or fever(s) Cardiovascular Cardiovascular: Denies chest pain Respiratory/Chest Respiratory/Chest: Denies dyspnea Gastrointestinal Gastrointestinal: Denies abdominal pain, nausea or vomiting Musculoskeletal Musculoskeletal: Reports myalgias and neck pain Integumentary Denies Abrasions or rash Neurologic Neurologic: Denies paresthesias or weakness EXAM Physical Exam Const Vital Signs: 06/29/24 11:09 06/29/24 13:07 Temperature 97.8 F Temperature Source Temporal Pulse Rate 90 Respiratory Rate 16 Respiratory Effort Normal Respiratory Pattern Normal Blood Pressure 183/85 H Blood Pressure Mean 117 Pulse Ox 97 Oxygen Delivery Method Room Air Positive well nourished, well developed and no apparent distress General Appearance ED: well developed HEENT Reports normocephalic and head/scalp atraumatic Mouth ED: Yes moist mucous membranes normal Eyes PERRL and EOMs intact bilaterally Neck full ROM, no lymphadenopathy and supple Neck Narrative: No midline cervical tenderness, tenderness to the left paracervical and left trapezius muscles. Chest Wall inspection of chest normal Resp normal respiratory effort and clear to auscultation bilaterally Cardio regular rate and regular rhythm GI soft to palpation, non-tender, non-distended and no masses Back/Spine normal ROM and normal to inspection Back/Spine Narrative: Left upper back tenderness to palpation. Extremity normal to inspection Extremity Narrative: Painful range of motion to the left shoulder, pain to palpation to the left shoulder and left tricep and bicep muscles. Left radial pulse 2+, neurovascularly intact, 5 out of 5 strength and sensation upper extremities. Neuro oriented x3, CN's II-XII intact bilaterally, moves all extremities, no focal motor deficits and no sensory deficits noted Sensorium / Orientation: awake and alert Psych mental status grossly normal and thought process normal Skin no rashes or lesions noted and no wounds MDM MDM MDM Narrative Medical decision making narrative: Patient presenting today due to pain in her neck and left upper extremity that started 4 days ago that has gradually been worsening. The day prior to the pain starting she was painting and had her arms above her head for several hours. She does have reproducible pain to her left trapezius and paracervical muscles as well as her left deltoid, bicep, and tricep muscles as well as left upper back. Her examination is consistent with muscular strain from painting. She did not have any injury to her neck or arm. I do not feel imaging is indicated at this time. She has no paresthesias in her left arm. Left upper extremity neurovascularly intact. She was given Trinity here and reported minimal improvement of her pain, she was additionally medicated with Toradol and Skelaxin. I will give her a prescription for Skelaxin and Trinity, she can continue anti-inflammatories at home. Recommended she follow-up with her PCP. She will be discharged home in stable condition. Discharge Plan Triage Chief Complaint: Other, Pain/Inj ED Midlevel Provider: Lu Wing ED Provider: Eliu Torres Dx/Rx/DC Orders Clinical Impression: Muscle spasm Instructions: ED Muscle Spasm Prescriptions: New metaxalone 800 mg tablet 800 mg PO TID 7 Days Qty: 21 0RF hydrocodone-acetaminophen 5-325 mg tablet 1 tab PO Q4H PRN PRN (Reason: Pain) 3 Days Qty: 10 0RF No Action ondansetron 4 mg tablet,disintegrating 4 mg PO Q8H PRN PRN (Reason: Nausea) Qty: 20 0RF hydrocodone-acetaminophen 5-325 mg tablet 1 tab PO Q6H PRN PRN (Reason: Pain) 3 Days Qty: 12 0RF ciprofloxacin HCl [Cipro] 500 mg tablet 500 mg PO BID Qty: 14 0RF diphenoxylate-atropine [Lomotil] 2.5-0.025 mg tablet 1 tab PO TID PRN (Reason: diarrhea) 5 Days Qty: 15 0RF prednisone 20 mg tablet 40 mg PO DAILY 7 Days Qty: 14 0RF hydrocodone-acetaminophen 5-325 mg tablet 1 tab PO Q4H PRN PRN (Reason: Pain) 2 Days Qty: 10 0RF sulfamethoxazole-trimethoprim 800-160 mg tablet 1 tab PO BID Qty: 14 0RF Primary Care Provider: Care Physician,No Primary Referrals: Mauricio Maldonado MD [Med Staff - Examiner Of Currency] - 1 Week if not improving Care Physician,No Primary [Primary Care Provider] - Activity Restrictions/Additional Instructions: Muscle strain and spasm of your upper shoulder neck and chest and back. Hot shower, warm bath, massage, massage gun, whirlpool. Motrin for pain and inflammation. The muscle relaxant Skelaxin 1 pill 3 times a day for 1 week. It will not work initially after 2 to 3 days of start feeling a lot better. The pain medication as needed. Do not drive a car if you are using the narcotic pain medication. Do not drink alcohol using it. Follow-up if not improving or return if worse. Print Language: Upper Sorbian Disposition Disposition: Home, Self Care
[2024-06-29] MEDS: HYDROcodone Bitartrate/Apap 5/325 Tablet PO (13:34)
[2024-06-29] MEDS: Metaxalone 800 MG Tablet PO (14:45)
[2024-06-29] MEDS: Ketorolac 60 MG/2 ML Vial IM (14:46)
[2024-06-29 15:26] VITALS: BP 134/79; PULSE 89; RESP 16; TEMP 36.8; O2SAT 98
== END 2024-06-29 15:27 | disposition home or self-care (01) ==
PROVIDERS: Emergency Provider Emergency Medicine; Visit Provider Emergency Medicine
DX: M62.838 Other muscle spasm (principal); Z90.49 Acquired absence of other specified parts of digestive tract; Z98.51 Tubal ligation status; X50.1XXA Overexertion from prolonged static or awkward postures, initial encounter; Y93.89 Activity, other specified
CPT/HCPCS: 96372; 99283

== ENCOUNTER 2024-07-02 05:59 | Emergency (ER) | payer OTHER, MEDICAID, SELFPAY ==
[2024-07-02 06:00] VITALS: BP 184/86; PULSE 98; RESP 16; TEMP 37.2; O2SAT 94; BMI 44.8
[2024-07-02 06:04] VITALS: BP 162/90
--- NOTE | 2024-07-02 06:40 | EX.ED.UPPERE ---
HPI History of Present Illness HPI Narrative: Chief complaint and HPI: Left upper extremity pain/spasms. 49-year-old female presents for evaluation of left upper extremity pain/spasms. Patient states 15 years ago she injured her left shoulder. She states she recently aggravated it by painting as her arms were above her head for several hours. 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 She states she was seen in our emergency department and diagnosed with a muscle spasm. She states she was placed on muscle relaxers as well as narcotics. She has been taking ibuprofen in addition. Patient states that she has received some relief however her pain is still present. The pain is described as a spasm and located in her left upper extremity as well as her neck. She denies any injury to this area such as fall or lifting something heavy. Denies any fever, chills, chest pain, shortness of breath. Review of systems: See HPI Medications: As listed on the chart Allergies: As listed on the chart PFSH: Per chart Vital signs: As listed on the chart. Reviewed. Physical exam: Gen: A&O x3, NAD Head: Normocephalic, atraumatic Eyes: No sclera icterus, conjunctiva clear, PERRL, EOMI ENT: Moist mucous membranes Neck: Trachea midline, No JVD, full range of motion, no meningismus, no midline spinal tenderness, tenderness to palpation of the left paraspinal musculature of the cervical spine as well as left trapezius muscle -palpation recreates her pain CV: RRR, no murmurs, no peripheral edema Resp: Lungs CTA BL, no w/r/c Musc: Limited range of motion of the left upper extremity secondary to pain in the left shoulder, patient has tenderness to palpation of the left shoulder musculature including the triceps and biceps-this recreates her pain, neurovascularly intact, radial/ulnar pulses +2, decreased nurse companion strength of the left compared to the right-patient is right-handed otherwise strength intact and equal bilaterally, no midline spinal tenderness, no bony step-off, tenderness to palpation of the left paraspinal musculature of the thoracic spine Skin: Warm, dry Neuro: Alert, oriented, grossly intact, sensation intact Psych: Cooperative, appropriate mood and affect Chief Complaint: Upper Extremity Injury Narrative Narrative: 49-year-old female presents for evaluation of left upper extremity pain/spasms. Patient taking narcotics and metaxalone with little relief. Pain/spasms developed after several hours of painting with her arms above her head. Patient has reproducible pain to the left paracervical and parathoracic muscles, trapezius, deltoid, bicep, and tricep muscles. Physical exam and HPI is consistent with muscular strain/spasm. She denies any injury or trauma therefore do not feel any imaging is indicated at this time. She is neurovascularly intact. Patient took ibuprofen prior to arrival therefore Toradol will not be given. Instead patient will be given IM morphine and Valium. Plan will be to have her stop taking her current muscle relaxer and instead will place her on Flexeril to see if this muscle relaxer has more improvement than the last. Will place patient on a short course of steroids to help with inflammation. She was educated to stop taking ibuprofen while taking steroids. Okay to take him again once steroids are finished. Tylenol okay. Educated to stop taking narcotics if she feels they are not causing improvement. Educated on IcyHot. RICE therapy and heating pad for comfort. Follow-up with PCP and orthopedics. On reevaluation, patient did have improvement with pain and more comfortable after pain medicine. She is comfortable with the plan. Patient stable to discharge home. Impression: 1. Muscle strain/spasm of the left shoulder [facility] Medical History Ureter obstruction Kidney cysts Pyelonephritis Migraine Endometriosis Home Medications ?Medication ?Instructions ?Recorded ?Last Taken ?Type hydrocodone-acetaminophen 5-325mg 1 tab PO Q6H PRN PRN Pain 3 days 11/03/22 Unknown Rx 5mg-325mg #12 TABLETS ondansetron 4 mg disintegrating 4 mg PO Q8H PRN PRN Nausea #20 tabs 11/03/22 Unknown Rx tablet ciprofloxacin HCl 500 mg tablet 500 mg PO BID #14 tabs 11/07/22 Unknown Rx (Cipro) diphenoxylate-atropine 2.5 1 tab PO TID PRN diarrhea 5 days 11/11/22 Unknown Rx mg-0.025 mg tablet (Lomotil) #15 tabs prednisone 20 mg tablet 40 mg (2 x 20 mg) PO DAILY 7 days 06/19/23 Unknown Rx #14 tabs hydrocodone-acetaminophen 5-325mg 1 tab PO Q4H PRN PRN Pain 2 days 10/14/23 Unknown Rx 5mg-325mg #10 TABLETS sulfamethoxazole 800 1 tab PO BID #14 TABLETS 10/14/23 Unknown Rx mg-trimethoprim 160 mg tablet hydrocodone-acetaminophen 5-325mg 1 tab PO Q4H PRN PRN Pain 3 days 06/29/24 Unknown Rx 5mg-325mg #10 TABLETS cyclobenzaprine 5 mg tablet 5 mg PO TID PRN muscle spasm 3 07/02/24 Unknown Rx days #9 tabs prednisone 20 mg tablet 40 mg (2 x 20 mg) PO DAILY 5 days 07/02/24 Unknown Rx #10 tabs Allergy/AdvReac Type Severity Reaction Status Date / Time Penicillins Allergy Angioedema Verified 07/02/24 06:04 ciprofloxacin AdvReac Intermediate Other Verified 07/02/24 06:04 Surgical History H/O tubal ligation Hx of cholecystectomy H/O hernia repair Social History Smoking Status: Never smoker alcohol intake: current alcohol intake frequency: holidays/special occasions only substance use type: does not use EXAM Physical Exam Const Vital Signs: 07/02/24 06:00 07/02/24 06:04 Temperature 98.9 F Temperature Source Oral Pulse Rate 98 Respiratory Rate 16 Blood Pressure 184/86 H 162/90 H Blood Pressure Mean 118 114 Pulse Ox 94 Oxygen Delivery Method Room Air Discharge Plan Triage Chief Complaint: Upper Extremity Injury ED Provider: Tyrell Givens Dx/Rx/DC Orders Clinical Impression: Muscle strain of left shoulder Instructions: ED Muscle Strain, Extremity, ED RICE Prescriptions: New cyclobenzaprine 5 mg tablet 5 mg PO TID PRN (Reason: muscle spasm) 3 Days Qty: 9 0RF prednisone 20 mg tablet 40 mg PO DAILY 5 Days Qty: 10 0RF Discontinued metaxalone 800 mg tablet 800 mg PO TID 7 Days Qty: 21 0RF No Action ondansetron 4 mg tablet,disintegrating 4 mg PO Q8H PRN PRN (Reason: Nausea) Qty: 20 0RF hydrocodone-acetaminophen 5-325 mg tablet 1 tab PO Q6H PRN PRN (Reason: Pain) 3 Days Qty: 12 0RF ciprofloxacin HCl [Cipro] 500 mg tablet 500 mg PO BID Qty: 14 0RF diphenoxylate-atropine [Lomotil] 2.5-0.025 mg tablet 1 tab PO TID PRN (Reason: diarrhea) 5 Days Qty: 15 0RF prednisone 20 mg tablet 40 mg PO DAILY 7 Days Qty: 14 0RF hydrocodone-acetaminophen 5-325 mg tablet 1 tab PO Q4H PRN PRN (Reason: Pain) 2 Days Qty: 10 0RF sulfamethoxazole-trimethoprim 800-160 mg tablet 1 tab PO BID Qty: 14 0RF hydrocodone-acetaminophen 5-325 mg tablet 1 tab PO Q4H PRN PRN (Reason: Pain) 3 Days Qty: 10 0RF Primary Care Provider: Care Physician,No Primary Referrals: Varun Silveira MD [Med Staff - Active Staff] - 3-5 Days Rosalino Mcclain MD [Med Staff - Active Staff] - 3-5 Days Care Physician,No Primary [Primary Care Provider] - Activity Restrictions/Additional Instructions: Follow-up with PCP provided below as well as orthopedic physician. Return back to the ED if symptoms change or worsen. Recommend IcyHot and heating pad. You received muscle relaxer here in the emergency department. Do not take another muscle relaxer for 8 hours. Muscle relaxers can increase drowsiness as well as falls and confusion. Do not drive or operate heavy machinery while taking them. Okay for Tylenol. Do not take Motrin while taking steroids. Stop taking your previous muscle relaxers. Print Language: Estonian Disposition Disposition: Home, Self Care Discharge Date/Time: 07/02/24 07:50
[2024-07-02] MEDS: diazePAM 5 MG Tablet PO (06:45)
[2024-07-02] MEDS: Morphine 4 MG/ML Syringe IM (06:45)
[2024-07-02] MEDS: Ondansetron ODT 4 MG Tablet PO (06:45)
[2024-07-02 07:46] VITALS: BP 151/88; PULSE 84; RESP 16; TEMP 36.4; O2SAT 93
== END 2024-07-02 07:50 | disposition home or self-care (01) ==
PROVIDERS: Emergency Provider Surgery; Visit Provider Surgery
DX: S46.912A Strain of unspecified muscle, fascia and tendon at shoulder and upper arm level, left arm, initial encounter (principal); X50.1XXA Overexertion from prolonged static or awkward postures, initial encounter; Y93.89 Activity, other specified; Z90.49 Acquired absence of other specified parts of digestive tract; Z98.51 Tubal ligation status
CPT/HCPCS: 96372; 99285

== ENCOUNTER 2024-12-06 13:31 | Emergency (ER) | payer OTHER, MEDICAID, SELFPAY ==
[2024-12-06 13:32] VITALS: BP 178/91; PULSE 92; RESP 16; TEMP 36.3; O2SAT 98; BMI 44.3
[2024-12-06 15:31] VITALS: BP 139/89; PULSE 89; RESP 18; O2SAT 98
--- NOTE | 2024-12-06 15:33 | EDS_ITS ---
HPI History of Present Illness Chief Complaint: Hyperglycemia Informant: patient and family Narrative Narrative: Polyuria polydipsia for the past couple weeks not feeling well. Family member present who is a diabetic. They checked her sugar at home a week ago was in the 300s. Intermittent nausea. Denies fever chills denies cough. Gestational diabetes history. Has not seen a PCP in 19 years. Called primary office in [facility] had interactions with nursing 3 times today. Was urged to go to the emergency department for testing. She has appointment made January 05. No diabetes that runs in her parents. Glucose this morning was 290. [facility] Medical History Ureter obstruction Kidney cysts Pyelonephritis Migraine Endometriosis Home Medications ?Medication ?Instructions ?Recorded ?Last Taken ?Type hydrocodone-acetaminophen 5-325mg 1 tab PO Q6H PRN PRN Pain 3 days 11/03/22 Unknown Rx 5mg-325mg #12 TABLETS ondansetron 4 mg disintegrating 4 mg PO Q8H PRN PRN Na usea #20 tabs 11/03/22 Unknown Rx tablet ciprofloxacin HCl 500 mg tablet 500 mg PO BID #14 tabs 11/07/22 Unknown Rx (Cipro) diphenoxylate-atropine 2.5 1 tab PO TID PRN diarrhea 5 days 11/11/22 Unknown Rx mg-0.025 mg tablet (Lomotil) #15 tabs prednisone 20 mg tablet 40 mg (2 x 20 mg) PO DAILY 7 days 06/19/23 Unknown Rx #14 tabs hydrocodone-acetaminophen 5-325mg 1 tab PO Q4H PRN PRN Pain 2 days 10/14/23 Unknown Rx 5mg-325mg #10 TABLETS sulfamethoxazole 800 1 tab PO BID #14 TABLETS 06/07 Unknown Rx mg-trimethoprim 160 mg tablet hydrocodone-acetaminophen 5-325mg 1 tab PO Q4H PRN PRN Pain 3 days 06/29/24 Unknown Rx 5mg-325mg #10 TABLETS cyclobenzaprine 5 mg tablet 5 mg PO TID PRN muscle spa sm 3 07/02/24 Unknown Rx days #9 tabs prednisone 20 mg tablet 40 mg (2 x 20 mg) PO DAILY 5 days 07/02/24 Unknown Rx #10 tabs metformin 500 mg tablet 500 mg PO DAILY #30 tabs Unknown Rx nitrofurantoin 100 mg PO Q12 #14 CAPSULES 0 12/06/24 Unknown Rx monohydrate/macrocrystals 100 mg capsule Allergy/AdvReac Type Severity Reaction Status Date / Time Penicillins Allergy Angioedema Verified 12/06/24 13:35 ciprofloxacin AdvReac Intermediate Other Verified 12/06/24 13:35 Surgical History H/O tubal ligation Hx of cholecystectomy H/O hernia repair Social History Smoking Status: Never smoker alcohol intake: current alcohol intake frequency: holidays/special occasions only substance use type: does not use ROS ROS ED Constitutional Constitutional ED: Denies chills, fever(s) or sweats ENT ENT ED: Denies sore throat Cardiovascular Cardiovascular: Denies chest pain, leg edema, palpitations or racing heartbeat Respiratory/Chest Respiratory/Chest: Denies cough, dyspnea or dyspnea on exertion Gastrointestinal Gastrointestinal: Denies abdominal pain, diarrhea, nausea or vomiting Genitourinary Genitourinary ED: Denies dysuria, hematuria or urinary frequency Musculoskeletal Musculoskeletal: Denies back pain, extremity pain or neck pain Integumentary Denies rash or wounds Neurologic Neurologic: Denies headache(s), paresthesias or weakness Endocrine Endocrinology: Reports polydipsia and polyuria EXAM Physical Exam Const Vital Signs: 12/06/24 13:32 12/06/24 15:28 12/06/24 15:31 Temperature 97.4 F L Temperature Source Temporal Pulse Rate 92 89 Respiratory Rate 16 18 Respiratory Effort Normal Respiratory Pattern Normal Blood Pressure 178/91 H 139/89 H Blood Pressure Mean 120 105 Pulse Ox 98 98 Oxygen Delivery Method Room Air Room Air Positive well nourished and well developed General Appearance ED: well developed and NAD HEENT Reports moist mucous membranes normocephalic and atraumatic Eyes General Eye ED: Yes normal appearance of both eyes Neck full ROM Chest Wall Chest: Negative for tenderness Resp normal respiratory effort and normal air movement Effort and Inspection: symmetric chest movement; Negative for respiratory distress Cardio regular rate, regular rhythm and no murmurs Peripheral Pulses: pulses 2+ throughout GI normal to inspection, nondistended, normoactive bowel sounds and non-tender Palpation: Negative for guarding or rebound tenderness present Narrative: Urine sample table was cloudy. Extremity normal to inspection General Extremety ED: Negative for edema or tenderness General Extremity: Negative for edema Neuro oriented x3 and no sensory deficits noted Sensorium / Orientation: awake and alert Skin no rashes or lesions noted and no wounds MDM MDM MDM Narrative Medical decision making narrative: Interventions / MDM: Differential diagnosis: Diabetes new onset, DKA, UTI Diagnosis considered but do not suspect: N/A My EKG interpretation: N/A Imaging independently reviewed and interpreted by myself: N/A External documents reviewed: N/A Test considered but not ordered:N/A ED course: Nontoxic. Polyuria and polydipsia glucose at home in 300s. Likely new diabetic. Labs obtained to rule out DKA. Given 1 L of normal saline. As she does not have established PCP will send for hemoglobin A1c. Labs glucose 174 in the lab Was normal elevated beta hydroxybutyric of 0.5. Urine with infection culture sent. Multiple allergies she started on Macrobid. She is for additional liter of fluid. For planned recheck of her beta hydroxy. However nursing came spoke with me she did not want additional fluids. Patient stated she needed to get to work. I discussed new onset diabetes with hemoglobin A1c of 11.2. She did not want additional fluids stating she can drink this at home. She is alert and oriented x 4 capable of making decisions. She was signed out AGAINST MEDICAL ADVICE. She is ordered for metformin to start once a day along with continue her antibiotics for additional 7 days. Re-evaluation: stable Disposition discussed with patient/family/significant other: Patient Case discussed with consulting clinician: N/A This note was generated with [employer] dictation software. It may contain incorrect words, spelling, and punctuation that were not noted in checking the note before signing. Lab Data Attestation: I reviewed the patient's lab results. Labs: Laboratory Results - last 24 hr 12/06/24 12/06/24 12/06/24 15:31 15:32 15:40 WBC 8.8 RBC 5.02 Hgb 13.6 Hct 41.7 MCV 83.1 MCH 27.1 MCHC 32.6 RDW Std Deviation 40.0 RDW Coeff of Krista 13.2 Plt Count 283 MPV 9.9 Immature Gran % (Auto) 0.500 Neut % (Auto) 67.9 Lymph % (Auto) 24.7 [place] % (Auto) 5.4 Eos % (Auto) 1.4 Baso % (Auto) 0.1 Absolute Neuts (auto) 6.0 Absolute Lymphs (auto) 2.17 Nucleated RBC % 0 Sodium 135 Potassium 4.2 Chloride 100 Carbon Dioxide 20.9 L Anion Gap 14 BUN 9 Creatinine 0.54 L Estim Creat Clear Calc 177.69 Est GFR (MDRD) Non-Af 113 BUN/Creatinine Ratio 16.3 Glucose 174 H Hemoglobin A1c 11.2 H Calcium 9.7 b-Hydroxybutyric mmol/L 0.5 H Urine Color Yellow Urine Clarity Sl. Cloudy Urine pH 6.0 Ur Specific [place] 1.015 Urine Protein 15 H Urine Glucose (UA) 100 H Urine Ketones 15 H Urine Occult Blood 150 H Urine Nitrite Positive H Urine Bilirubin Negative Urine Urobilinogen Normal Ur Leukocyte Esterase 500 H Urine RBC 0-5 SEEN Urine WBC 10-25 SEEN Ur Squamous Epith Cells 0-5 SEEN Urine Bacteria 4+ Urine Mucus 0 SEEN POC Glucose 166 H Discharge Plan Triage Chief Complaint: Hyperglycemia ED Provider: Catracho Allen Dx/Rx/DC Orders Clinical Impression: Diabetes mellitus, new onset, UTI (urinary tract infection) Instructions: UTIs, Diabetes Serving Portion Sizes, Diabetes and Illness Prescriptions: New nitrofurantoin monohyd/m-cryst 100 mg capsule 100 mg PO Q12 Qty: 14 0RF metformin 500 mg tablet 500 mg PO DAILY Qty: 30 0RF No Action ondansetron 4 mg tablet,disintegrating 4 mg PO Q8H PRN PRN (Reason: Nausea) Qty: 20 0RF hydrocodone-acetaminophen 5-325 mg tablet 1 tab PO Q6H PRN PRN (Reason: Pain) 3 Days Qty: 12 0RF ciprofloxacin HCl [Cipro] 500 mg tablet 500 mg PO BID Qty: 14 0RF diphenoxylate-atropine [Lomotil] 2.5-0.025 mg tablet 1 tab PO TID PRN (Reason: diarrhea) 5 Days Qty: 15 0RF prednisone 20 mg tablet 40 mg PO DAILY 7 Days Qty: 14 0RF hydrocodone-acetaminophen 5-325 mg tablet 1 tab PO Q4H PRN PRN (Reason: Pain) 2 Days Qty: 10 0RF sulfamethoxazole-trimethoprim 800-160 mg tablet 1 tab PO BID Qty: 14 0RF hydrocodone-acetaminophen 5-325 mg tablet 1 tab PO Q4H PRN PRN (Reason: Pain) 3 Days Qty: 10 0RF cyclobenzaprine 5 mg tablet 5 mg PO TID PRN (Reason: muscle spasm) 3 Days Qty: 9 0RF prednisone 20 mg tablet 40 mg PO DAILY 5 Days Qty: 10 0RF Primary Care Provider: Care Physician,No Primary Referrals: Care Physician,No Primary [Primary Care Provider] - Activity Restrictions/Additional Instructions: Hemoglobin A1c 11.1. He had signs of urinary tract infection. Take antibiotic prescribed. Take metformin as prescribed. Follow-up with your doctor sooner if you are able to. Print Language: Wallisian Disposition Disposition: Home, Self Care Discharge Date/Time: 12/06/24 17:56
[2024-12-06 15:44] LABS: Mucous, Urine 0 SEEN /hpf (<or=2+)
[2024-12-06] MEDS: 0.9% Normal Saline (1000mL) 1,000 ML 1000 ML IV (15:49)
[2024-12-06 15:50] LABS: Hematocrit 41.7 % (37-47); Hemoglobin 13.6 g/dL (12.0-15.0); Immature Granulocytes Count 0.040 X10^3/uL (0.0-0.0); Mean Corp Hgb Conc 32.6 g/dL (32-36); Mean Corpuscular Volume 83.1 fL (81-99); Mean Platelet Vol. 9.9 fl (6.2-12.0); NRBC Flagged by Analyzer 0 % (0-5); Platelet Count 283 K/mm3 (150-450); RBC Distribution Width CV 13.2 % (11.6-14.6); RBC Distribution Width SD 40.0 fl (35.1-43.9); Red Blood Count 5.02 M/mm3 (4.2-5.4); White Blood Count 8.8 K/mm3 (4.4-11.0)
[2024-12-06 16:01] LABS: Color, Urine Yellow (Yellow); Glucose, Dipstick 100 mg/dl (Normal); Ketone-Dipstick 15 mg/dl (Negative); Leukocyte Esterase-Dipstick 500 /ul (Negative); Nitrite-Dipstick Positive (Negative); Occult Blood-Urine 150 /ul (Negative); Protein-Dipstick 15 mg/dl (Negative); Specific Gravity, Urine 1.015 (1.002-1.030); Urine Bilirubin Dipstick Negative (Negative)
[2024-12-06 16:22] LABS: BETA-HYDROXYBUTYRATE 0.5 mmol/L (0.0-0.3)
[2024-12-06 16:35] LABS: Anion Gap 14 (5-15); BUN 9 mg/dL (4-19); BUN/Creat Ratio 16.3 RATIO (10-20); Calcium,Total 9.7 mg/dL (7.6-11.0); Carbon Dioxide 20.9 mmol/L (21.0-32.0); Chloride 100 mmol/L (98-108); Estimated Creatinine Clearance 177.69 ml/min (50-250); Glucose 174 mg/dL (70-99); Potassium 4.2 mmol/L (3.3-5.1)
--- OUTSIDE RECORDS SUMMARY | 2024-12-06 17:14 | XMS RPT_ITS | CCD ---
Author Organization [facility] Inform ion Partnership BUSINESS RULES ANALYST [facility] Care Team Providers Care Bellhop Captain Name Role Phone Care Physician, No Primary Primary Care Provider Unavailable Brian CH, Dr. Nowak Emergency Provider Eliu Torres Attending Unavailable Care Physician, No Primary Primary Care Unava ilable Racquel Chen Attending Unavailable Care Physician, No Primary Primary Care Unava ilable Care Physician, No Primary Primary Care Unava ilable Tyrell Givens Attending Unavailabl e Care Physician, No Primary Primary Care Unava ilable Dr. Tyrell Givens DO Emergency Provider Allergies Allergy Classification Reported Allergen(s) Allergy Type Date of Onset Reaction(s) Facility (9 sources) Penicillins Allergy to substance 2 Angioedema [facility] (2 sources) Ciprofloxacin Drug Allergy 5 Other [facility] Comment on above: patient states probl ems performing motor skills when taking cipro in the past (1 source) Ciprofloxacin Drug Allergy 5 [facility] Repository (1 source) Penicillins Drug allergy (disorder) 5 [facility] Medications Current Medications Medication Drug Class(es) Dates Sig (Normalized) Sig (Original) acetaminophen 325 mg / HYDROcodone bitartrate 5 mg oral tablet (11 sources) Opioid Agonist Start: 10-14-2023 take 1 tablet by mouth every four hours as needed for pain Hydrocodone-Aceta minophen 5-325 mg tablet Active 1 {tbl} PO EVERY 4 HOURS NEEDED as needed for Pain 10 3 June 29, 2024 Start: 11-03-2022 take 1 tablet by fabiola th every six hours as needed for pain Hydrocodone-Acetaminophen 5-325 mg table t Active 1 {tbl} PO EVERY 6 HOURS NEEDED as needed for Pain 12 November 03, 2022 Start: 11-03-2022 take 1 tablet by fabiola th every six hours as needed Hydrocodone-Acetaminophen Active 1 TABLE T PO EVERY 6 HOURS NEEDED 12 November 03, 2022 atropine sulfate 0.025 mg / diphenoxylate hydrochloride 2.5 mg oral tablet (5 sources) Anticholinergic, Cholinergic Muscarinic Antagonist, Antidiarrheal Start: 11-11-2022 Diphenoxylate-Atropine (Lomotil) 2.5-0.025 mg tablet Active 1 {tbl} PO THREE TIMES A DAY as needed for diarrhea 15 5 November 11, 2022 10:34pm ciprofloxacin 500 mg oral tablet (6 sources) Quinolone Antimicrobial Start: 11-07-2022 take 1 tablet by mouth twice daily Ciprofloxacin Hcl (Cipro) 500 mg tablet Active 500 mg PO TWICE A DAY November 07, 2022 12:00am cyclobenzaprine hydrochloride 5 mg oral tablet (1 source) Muscle Relaxant Start: 07-02-2024 take 1 tablet by mouth three times daily as needed for muscle spasms Cyclobenzaprine 5 mg tablet Active 5 mg PO THREE TIMES A DAY as needed for muscle spasm 9 July 02, 2024 12:00am ondansetron 4 mg disintegrating oral tablet (7 sources) Serotonin-3 Receptor Antagonist Start: 11-03-2022 take 1 tablet by mouth every eight hours as needed for nausea Ondansetron 4 mg tablet,disintegrating Active 4 mg PO EVERY 8 HOURS NEEDED as needed for Nausea November 03, 2022 12:00am predniSONE 20 mg oral tablet (4 sources) Start: 06-19-2023 take 2 tablets by mouth once daily Prednisone 20 mg tablet Active 40 mg PO DAILY 25 10June 19, 2023 1:00am Start: 06-19-2023 take 40 mg by mouth once daily Prednisone Active 40 MG PO DAILY 25 10June 19, 2023 1:00am sulfamethoxazole 800 mg / trimethoprim 160 mg oral tablet (9 sources) Dihydrofolate Reductase Inhibitor Antibacterial, Sulfonamide Antimicrobial Start: 10-14-2023 Sulfamethoxazole-Trimethopri m 800-160 mg tablet Active 1 {tbl} PO TWICE A DAY October 14, 2023 12:00am Start: 11-03-2022 End: 11-07-2022 Sulfamethoxazole-Trimethopri m (Bactrim Ds) 800-160 mg tablet Discontinued 1 {tbl} PO TWICE A DAY November 03, 2022 12:00am November 07, 2022 8:27am Completed/Discontinued Medications Medication Drug Class(es) Dates Sig (Normalized) Sig (Original) metaxalone 800 mg oral tablet (2 sources) Start: 06-29-2024 End: 07-02-2024 take 1 tablet by mouth three times daily Metaxalone 800 mg tablet Discontinued 800 mg PO THREE TIMES A DAY 01 11June 29, 2024 12:00am July 02, 2024 7:39am Problems Active Problems Problem Classification Problem Date Documented Da te Episodic/Chronic Abdominal pain (11 sources) Right lower quadrant pain; Translations: [Right lower quadrant pain] 01-19-2022 Episodic Calculus of urinary tract (8 sources) Kidney stone; Translations: [Calculus of kidney] 11-05-2022 Episodic Cardiac dysrhythmias (8 sources) Sinus tachycardia; Translations: [Tachycardia, unspecified] 08-04-2022 Episodic Fever of unknown origin (8 sources) Fever; Translations: [Fever, unspecified] 11-05-2022 Episodic Fluid and electrolyte disorders (5 sources) Mild dehydration; Translations: [Dehydration] 11-11-2022 Episodic Headache; including migraine (15 sources) Headache; Translations: [Headache] 06-28-2021 Episodic Other connective tissue disease (2 sources) Spasm; Translations: [Other muscle spasm] 06-29-2024 Episodic Other connective tissue disease (1 source) Other muscle spasm; Translations: [Other muscle spasm] Onset: Episodic Other diseases of kidney and ureters (6 sources) Hydronephrosis; Translations: [Unspecified hydronephrosis] 11-05-2022 Episodic Other diseases of kidney and ureters (2 sources) Unspecified hydronephrosis; Translations: [Hydronephrosis] 11-07-2022 Episodic Other gastrointestinal disorders (5 sources) Diarrhea; Translations: [Diarrhea, unspecified] 11-11-2022 Episodic Other upper respiratory disease (8 sources) Acute bronchospasm; Translations: [Acute bronchospasm] 08-04-2022 Episodic Other upper respiratory disease (4 sources) Congestion of nasal sinus; Translations: [Nasal congestion] 06-19-2023 Episodic Ovarian cyst (9 sources) Cyst of ovary; Translations: [Unspecified ovarian cyst, right side] 01-19-2022 Episodic Phlebitis; thrombophlebitis and thromboembolism (5 sources) Thrombophlebitis; Translations: [Phlebitis and thrombophlebitis of unspecified site] 11-11-2022 Episodic Septicemia (except in labor) (8 sources) Sepsis without acute organ dysfunction; Translations: [Sepsis, unspecified organism] 11-05-2022 Episodic Sprains and strains (2 sources) Strain of unspecified muscle, fascia and tendon at shoulder and upper arm level, left arm, initial encounter; Translations: [Strain of muscle of upper limb] Onset: 07-02-2024 Episodic Viral infection (8 sources) Acute viral disease; Translations: [Viral infection, unspecified] 08-04-2022 Episodic Past or Other Problems Problem Classification Problem Date Documented Da te Episodic/Chronic Urinary tract infections (19 sources) Pyelonephritis; Translations: [Tubulo-interstit ial nephritis, not specified as acute or chronic] Onset: 12-16-2023 11-03-2022 Episodic Results Test Name Value Interpretation Reference Range Facility Emergency Department Summary on 07-02-2024 Emergency Department Summary [facility] Medical Records Department [address] [place] [id number] Emergency Department Summary 07/02/24 MR#: [id number] Acct: [id number] Name: BRANDEN LEAL Rep #: [id number] : 1975 49 From: Tyrell Givens DO PCP: Care Physician,No Primary Status:DEP ER Location: ED HPI History of Present Illness HPI Narrative: Chief complaint and HPI: Left upper extremity pain/spasms. 49-year-old female presents for evaluation of left upper extremity pain/spasms. Patient states 15 years ago she injured her left shoulder. She states she recently aggravated it by painting as her arms were above her head for several hours. 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 She states she was seen in our emergency department and diagnosed with a muscle spasm. She states she was placed on muscle relaxers as well as narcotics. She has been taking ibuprofen in addition. Patient states that she has received some relief however her pain is still present. The pain is described as a spasm and located in her left upper extremity as well as her neck. She denies any injury to this area such as fall or lifting something heavy. Denies any fever, chills, chest pain, shortness of breath. Review of systems: See HPI Medications: As listed on the chart Allergies: As listed on the chart PFSH: Per chart Vital signs: As listed on the chart. Reviewed. Physical exam: Gen: A O x3, NAD Head: Normocephalic, atraumatic Eyes: No sclera icterus, conjunctiva clear, PERRL, EOMI ENT: Moist mucous membranes Neck: Trachea midline, No JVD, full range of motion, no meningismus, no midline spinal tenderness, tenderness to palpation of the left paraspinal musculature of the cervical spine as well as left trapezius muscle -palpation recreates her pain CV: RRR, no murmurs, no peripheral edema Resp: Lungs CTA BL, no w/r/c Musc: Limited range of motion of the left upper extremity secondary to pain in the left shoulder, patient has tenderness to palpation of the left shoulder musculature including the triceps and biceps-this recreates her pain, neurovascularly intact, radial/ulnar pulses +2, decreased pill machine operator strength of the left compared to the right-patient is right-handed otherwise strength intact and equal bilaterally, no midline spinal tenderness, no bony step-off, tenderness to palpation of the left paraspinal musculature of the thoracic spine Skin: Warm, dry Neuro: Alert, oriented, grossly intact, sensation intact Psych: Cooperative, appropriate mood and affect Chief Complaint: Upper Extremity Injury Narrative Narrative: 49-year-old female presents for evaluation of left upper extremity pain/spasms. Patient taking narcotics and metaxalone with little relief. Pain/spasms developed after several hours of painting with her arms above her head. Patient has reproducible pain to the left paracervical and parathoracic muscles, trapezius, deltoid, bicep, and tricep muscles. Physical exam and HPI is consistent with muscular strain/spasm. She denies any injury or trauma therefore do not feel any imaging is indicated at this time. She is neurovascularly intact. Patient took ibuprofen prior to arrival therefore Toradol will not be given. Instead patient will be given IM morphine and Valium. Plan will be to have her stop taking her current muscle relaxer and instead will place her on Flexeril to see if this muscle relaxer has more improvement than the last. Will place patient on a short course of steroids to help with inflammation. She was educated to stop taking ibuprofen while taking steroids. Okay to take him again once steroids are finished. Tylenol okay. Educated to stop taking narcotics if she feels they are not causing improvement. Educated on [employer]. RICE therapy and heating pad for comfort. Follow-up with PCP and orthopedics. On reevaluation, patient did have improvement with pain and more comfortable after pain medicine. She is comfortable with the plan. Patient stable to discharge home. Impression: 1. Muscle strain/spasm of the left shoulder [facility] Medical History Ureter obstruction Kidney cysts Pyelonephritis Migraine Endometriosis Home Medications ???Medication ???Instructions ???Recorded ???Last Taken ???Type hydrocodone-acetami nophen 5-325mg 1 tab PO Q6H PRN PRN Pain 3 days 11/03/22 Unknown Rx 5mg-325mg #12 TABLETS ondansetron 4 mg disintegrating 4 mg PO Q8H PRN PRN Nausea #20 tab s 11/03/22 Unknown Rx tablet ciprofloxacin HCl 500 mg tablet 500 mg PO BID #14 tabs 11/07/22 Un known Rx (Cipro) diphenoxylate-atrop ine 2.5 1 tab PO TID PRN diarrhea 5 days 0 11/11/22 Unknown Rx mg-0.025 mg tablet (Lomotil) #15 tabs prednisone 20 mg tablet 40 mg (2 x 20 mg) PO DAILY 7 days 06/19/23 Unknown Rx #14 tabs hydrocodone-aceta (more content not included)... Normal [facility] Emergency Department Summary on 06-29-2024 Emergency Department Summary [facility] Medical Records Department [address] [place] [address] Emergency Department Summary 06/29/24 MR#: [id number] Acct: [id number] Name: BRANDEN LEALN Rep #: [id number] : 1975 49 From: Lu CRANE PCP: Care Physician,No Primary Status:DEP ER Location: ED HPI History of Present Illness Chief Complaint: Other, Pain/Inj Narrative Narrative: Patient presenting today due to neck pain and L arm pain she has had over the past 4 days. She reports that she had her arms above her head painting for several hours the day prior to the pain starting. She denies any injury to her neck or arm. She reports feeling like her muscles are spasming and feeling knots in the muscles of her neck. She also reports pain to her left shoulder and left upper arm. She denies paresthesias, fevers, and chills. She has tried taking Tylenol and ibuprofen with minimal relief. She has gotten some relief from heat. [facility] Medical History Ureter obstruction Kidney cysts Pyelonephritis Migraine Endometriosis Home Medications ???Medication ???Instructions ???Recorded ???Last Taken ???Type hydrocodone-acetami nophen 5-325mg 1 tab PO Q6H PRN PRN Pain 3 days 11/03/22 Unknown Rx 5mg-325mg #12 TABLETS ondansetron 4 mg disintegrating 4 mg PO Q8H PRN PRN Nausea #20 tab s 11/03/22 Unknown Rx tablet ciprofloxacin HCl 500 mg tablet 500 mg PO BID #14 tabs 11/07/22 Un known Rx (Cipro) diphenoxylate-atrop ine 2.5 1 tab PO TID PRN diarrhea 5 days 0 11/11/22 Unknown Rx mg-0.025 mg tablet (Lomotil) #15 tabs prednisone 20 mg tablet 40 mg (2 x 20 mg) PO DAILY 7 days 06/19/23 Unknown Rx #14 tabs hydrocodone-acetami nophen 5-325mg 1 tab PO Q4H PRN PRN Pain 2 days 10/14/23 Unknown Rx 5mg-325mg #10 TABLETS sulfamethoxazole 800 1 tab PO BID #14 TABLETS 10/14/23 Unknown Rx mg-trimethoprim 160 mg tablet hydrocodone-acetami nophen 5-325mg 1 tab PO Q4H PRN PRN Pain 3 days 06/29/24 Unknown Rx 5mg-325mg #10 TABLETS metaxalone 800 mg tablet 800 mg PO TID 7 days #21 tabs 06/12 12/06 Unknown Rx Allergy/AdvReac Type Severity Reaction Status Date / Time Penicillins Allergy Angioedema Verified 06/29/24 11:09 ciprofloxacin AdvReac Intermediate Other Verified 06/29/24 11:09 Surgical History H/O tubal ligation Hx of cholecystectomy H/O hernia repair Social History Smoking Status: Never smoker alcohol intake: current alcohol intake frequency: holidays/special occasions only substance use type: does not use ROS ROS ED Constitutional Constitutional ED: Denies chills or fever(s) Cardiovascular Cardiovascular: Denies chest pain Respiratory/Chest Respiratory/Chest: Denies dyspnea Gastrointestinal Gastrointestinal: Denies abdominal pain, nausea or vomiting Musculoskeletal Musculoskeletal: Reports myalgias and neck pain Integumentary Denies Abrasions or rash Neurologic Neurologic: Denies paresthesias or weakness EXAM Physical Exam Const Vital Signs: 06/29/24 11:09 06/29/24 13:07 Temperature 97.8 F Temperature Source Temporal Pulse Rate 90 Respiratory Rate 16 Respiratory Effort Normal Respiratory Pattern Normal Blood Pressure 183/85 H Blood Pressure Mean 117 Pulse Ox 97 Oxygen Delivery Method Room Air Positive well nourished, well developed and no apparent distress General Appearance ED: well developed HEENT Reports normocephalic and head/scalp atraumatic Mouth ED: Yes moist mucous membranes normal Eyes PERRL and EOMs intact bilaterally Neck full ROM, no lymphadenopathy and supple Neck Narrative: No midline cervical tenderness, tenderness to the left paracervical and left trapezius muscles. Chest Wall inspection of chest normal Resp normal respiratory effort and clear to auscultation bilaterally Cardio regular rate and regular rhythm GI soft to palpation, non-tender, non-distended and no masses Back/Spine normal ROM and normal to inspection Back/Spine Narrative: Left upper back tenderness to palpation. Extremity normal to inspection Extremity Narrative: Painful range of motion to the left shoulder, pain to palpation to the left shoulder and left tricep and bicep muscles. Left radial pulse 2+, neurovascularly intact, 5 out of 5 strength and sensation upper extremities. Neuro oriented x3, CN's II-XII intact bilaterally, moves all extremities, no focal motor deficits and no sensory deficits noted Sensorium / Orientation: awake and alert Psych mental status grossly normal and thought process normal Skin no rashes or lesions noted and no wounds MDM MDM MDM Na (more content not included)... Normal [facility] Urine Cultureon 10-16-2023 [facility] Presumptive E. coli Oriental Count >100,000 Presumptive E. coli: REACTION Ampicillin Islt VERONICA 4 S Ampicillin+Sulbac Islt VERONICA <=2 S ceFAZolin Islt VERONICA <=4 S Cefepime Islt VERONICA <=0.12 S cefTRIAXone Islt VERONICA <=0.25 S Ciprofloxacin Islt VERONICA <=0.25 S Ertapenem Islt VERONICA <=0.12 S B-Lactamase Extended Susc Islt NEG Gentamicin Islt VERONICA <=1 S Imipenem Islt VERONICA <=0.25 S levoFLOXacin Islt VERONICA <=0.12 S Nitrofurantoin Islt VERONICA 64 I Pip+Tazo Islt VERONICA <=4 S Tobramycin Islt VERONICA <=1 S TMP SMX Islt VERONICA <=20 S Normal [facility] Comment on above: Performed By: #### M 100.2200 #### [facility] Laboratory [address] [place], [place], [address] Abdomen/Pelvis without Conto n 10-14-2023 Abdomen/Pelvis without Cont [facility] Imaging Services [address] [place], [place] [address] Abdomen/Pelvis without Cont MR#: [id number] Acct: [id number] Name: BRANDEN LEAL Rep #: [id number] : 1975 F 48 From: Michael ozuna MD PCP: Care Physician,No Primary Status: REG ER Study: Abdomen/Pelvis without Cont Date of Exam: 06/07 Exam# [id number] Ordering Dr: Racquel Chen DO [id number] EXAM: CT ABDOMEN AND PELVIS WITHOUT INTRAVENOUS CONTRAST CLINICAL INDICATION: left flank pain TECHNIQUE: Helically acquired images were obtained of the abdomen and pelvis without intravenous contrast. This CT exam was performed using one or more of the following dose reduction techniques: automated exposure control, adjustment of the mA and/or kV according to patient size, and/or use of iterative reconstruction technique. RADIATION DOSE: CTDIvol = 24.14 mGy, DLP = 1278.69 mGy-cm COMPARISON: 11/03/2022 FINDINGS: LOWER THORAX: Unremarkable. Lung bases are clear. No cardiomegaly. No significant pericardial effusion. ABDOMEN: LIVER: Unremarkable. Homogeneous. GALLBLADDER AND BILE DUCTS: Cholecystectomy. No intra- or extrahepatic biliary ductal dilation. PANCREAS: Unremarkable. No focal cystic mass. SPLEEN: Unremarkable. Normal size without focal cystic or solid mass. ADRENALS: Unremarkable. No nodules. KIDNEYS AND URETERS: Continued markedly abnormal left kidney with probably combination of moderate hydronephrosis and possibly large 8.6 cm upper pole cyst. UPJ stricture still a possibility and further evaluation recommended. Stable several stones of the renal pelvis and lower pole calyces as much as 8 mm size. Stable 1.8 cm exophytic cyst of the left lower pole. Normal right kidney. STOMACH AND BOWEL: Evaluation of the GI tract is limited by absence of oral contrast. Cannot exclude stomach wall thickening. No dilated loops of bowel or evidence for obstruction. Cannot exclude segmental thickening of the feliciano of the small or large bowel. Cannot exclude enteritis or colitis. Moderate diffuse fecal retention. Appendix within normal limits. PELVIS: APPENDIX: No evidence of acute appendicitis. BLADDER: Unremarkable. REPRODUCTIVE: Unremarkable as visualized. No mass. ABDOMEN and PELVIS: INTRAPERITONEAL SPACE: Unremarkable. No ascites or other fluid collection. No free air. BONES/JOINTS: Unremarkable. No suspicious lytic or blastic abnormality. SOFT TISSUES: Stable postoperative changes of the anterior abdominal wall from previous hernia repair. No current hernia seen. VASCULATURE: Unremarkable. Abdominal aorta is non-dilated. LYMPH NODES: Unremarkable. No enlarged lymph nodes. CT/Abdomen/Pelvis without Cont IMPRESSION: Continued markedly abnormal left kidney. There may be chronic obstruction. Further evaluation with nuclear medicine renal scan recommended. Electronically Signed: Michael Griggs MD at 18:06 EDT , CC: Dr. Racquel Chen, DO; No Primary Care Physician Mine Expert: Signed Normal [facility] CBC W/Diff, Automatedon 07-0 Absolute Lymph 1.74 X10 3/uL Normal 0.83-4.51 [facility] Comment on above: Performed By: #### L 700.6800, L100.0100, L500.4050 #### [facility] Laboratory [address] [place], [address] Absolute Neut 4.9 X10 3/uL Normal 2.0-7.7 [facility] Comment on above: Performed By: #### L 700.6800, L100.0100, L500.4050 #### [facility] [address] [place], [address] Basophils/100 WBC (Bld) 0.3 % Normal 0-1 [facility] Comment on above: Performed By: #### L 700.6800, L100.0100, L500.4050 #### [facility] [address] [place], [address] Eosinophils/100 WBC (Bld) 1.4 % Normal 0-5 [facility] Comment on above: Performed By: #### L 700.6800, L100.0100, L500.4050 #### [facility] [address] [place], [address] Erythrocyte distribution width (RBC) [Ratio] 12.6 % Normal 11.6-14.6 [facility] Comment on above: Performed By: #### L 700.6800, L100.0100, L500.4050 #### [facility] [address] [place], [address] Hematocrit (Bld) [Volume fraction] 41.8 % Normal 37-47 [facility] Comment on above: Performed By: #### L 700.6800, L100.0100, L500.4050 #### [facility] [address] [place], [address] Hemoglobin (Bld) [Mass/Vol] 13.4 g/dL Normal 12.0-15.0 [facility] Comment on above: Performed By: #### L 700.6800, L100.0100, L500.4050 #### [facility] [address] [place], [address] IG% 0.700 Normal 0.0-0.9 [facility] Comment on above: Result Comment: IG% - Immature Granulocytes (promyelocytes, myelocytes and metamyelocytes) > 1% indicates that a LEFT SHIFT is Present. Performed By: #### L 700.6800, L100.0100, L500.4050 #### [facility] [address] [place], [address] Lymphocytes/100 WBC (Bld) 24.1 % Normal 19-41 [facility] Comment on above: Performed By: #### L 700.6800, L100.0100, L500.4050 #### [facility] [address] [place], [address] MCH (RBC) [Entitic mass] 27.5 pg Normal 27.0-32.0 [facility] Comment on above: Performed By: #### L 700.6800, L100.0100, L500.4050 #### [facility] [address] [place], [address] MCHC (RBC) [Mass/Vol] 32.1 g/dL Normal 32-36 [facility] Comment on above: Performed By: #### L 700.6800, L100.0100, L500.4050 #### [facility] [address] [place], [address] MCV (RBC) [Entitic vol] 85.8 fL Normal 81-99 [facility] Comment on above: Performed By: #### L 700.6800, L100.0100, L500.4050 #### [facility] [address] [place], [address] Monocytes/100 WBC (Bld) 6.5 % Normal 0-10 [facility] Comment on above: Performed By: #### L 700.6800, L100.0100, L500.4050 #### [facility] [address] [place], [address] Neutrophils/100 WBC (Bld) 67.0 % Normal 47-70 [facility] Comment on above: Performed By: #### L 700.6800, L100.0100, L500.4050 #### [facility] [address] [place], [address] Nucleated RBC (Bld) [#/Vol] 0 10*3/uL Normal 0-5 [facility] Comment on above: Performed By: #### L 700.6800, L100.0100, L500.4050 #### [facility] [address] [place], [address] Platelet mean volume (Bld) [Entitic vol] 10.0 fL Normal 6.2-12.0 [facility] Comment on above: Performed By: #### L 700.6800, L100.0100, L500.4050 #### [facility] [address] [place], [address] Platelets (Bld) [#/Vol] 309 10*3/uL Normal 150-450 [facility] Comment on above: Performed By: #### L 700.6800, L100.0100, L500.4050 #### [facility] [address] [place], [address] RBC (Bld) [#/Vol] 4.87 10*6/uL Normal 4.2-5.4 [facility] Comment on above: Performed By: #### L 700.6800, L100.0100, L500.4050 #### [facility] [address] [place], [address] RDW SD 39.3 fl Normal 35.1-43.9 [facility] Comment on above: Performed By: #### L 700.6800, L100.0100, L500.4050 #### [facility] [address] [place], [address] WBC (Bld) [#/Vol] 7.2 10*3/uL Normal 4.4-11.0 [facility] Comment on above: Performed By: #### L 700.6800, L100.0100, L500.4050 #### [facility] [address] [place], [address] Comprehensive Metabolic Prof [facility] 10-14-[facility] Albumin [Mass/Vol] 3.5 g/dL Normal 3.2-5.0 [facility] Comment on above: Performed By: #### L 700.6800, L100.0100, L500.4050 #### [facility] [address] [place], [address] Albumin/Globulin [Mass ratio] 0.9 {ratio} Normal 0.9-2.4 [facility] Comment on above: Performed By: #### L 700.6800, L100.0100, L500.4050 #### [facility] [address] [place], [address] ALK P 73 U/L Normal 45-117 [facility] Comment on above: Performed By: #### L 700.6800, L100.0100, L500.4050 #### [facility] [address] [place], [address] ALT [Catalytic activity/Vol] 17 U/L Normal 13-56 [facility] Comment on above: Performed By: #### L 700.6800, L100.0100, L500.4050 #### [facility] [address] [place], [address] AST [Catalytic activity/Vol] 9 U/L Low 15-37 [facility] Comment on above: Performed By: #### L 700.6800, L100.0100, L500.4050 #### [facility] [address] [place], [address] Bilirubin [Mass/Vol] 0.30 mg/dL Normal 0.20-1.00 [facility] Comment on above: Result Comment: For patients on eltrombopag therapy, use of Dimension [place] TBIL is not recommended. Performed By: #### L 700.6800, L100.0100, L500.4050 #### [facility] [address] [place], [address] BUN/CRE 11.6 RATIO Normal 10-20 [facility] Comment on above: Performed By: #### L 700.6800, L100.0100, L500.4050 #### [facility] [address] [place], [address] CA,Total 9.6 mg/dL Normal 8.5-10.1 [facility] Comment on above: Performed By: #### L 700.6800, L100.0100, L500.4050 #### [facility] [address] [place], [address] Chloride [Moles/Vol] 105 mmol/L Normal 98-107 [facility] Comment on above: Performed By: #### L 700.6800, L100.0100, L500.4050 #### [facility] [address] [place], [address] CO2 [Moles/Vol] 29.0 mmol/L Normal 21.0-32.0 [facility] Comment on above: Performed By: #### L 700.6800, L100.0100, L500.4050 #### [facility] [address] [place], [address] Creatinine [Mass/Vol] 0.86 mg/dL Normal 0.55-1.02 [facility] Comment on above: Result Comment: The validity of the calculated GFR GFRAA in patients over 70 years has not been determined. Clinical correlation is essential. Performed By: #### L 700.6800, L100.0100, L500.4050 #### [facility] [address] [place], [address] ECRCL 114.62 ml/min Normal [facility] Comment on above: Performed By: #### L 700.6800, L100.0100, L500.4050 #### [facility] [address] [place], [address] EST GFR - AA 91 mL/min Normal >60 [facility] Comment on above: Result Comment: Afri can [place] GFR Calc Performed By: #### L 700.6800, L100.0100, L500.4050 #### [facility] [address] [place], [address] GAP 6 Normal 5-15 [facility] Comment on above: Performed By: #### L 700.6800, L100.0100, L500.4050 #### [facility] [address] [place], [address] GFR/1.73 sq M.predicted among non-blacks MDRD (S/P/Bld) [Vol rate/Area] 75 mL/min/{1.73_m2} Normal >60 [facility] Comment on above: Result Comment: Non- GFR Calc Performed By: #### L 700.6800, L100.0100, L500.4050 #### [facility] [address] [place], [address] Globulin (S) [Mass/Vol] 4.0 g/dL Normal 2.2-4.2 [facility] Comment on above: Performed By: #### L 700.6800, L100.0100, L500.4050 #### [facility] [address] [place], [address] Glucose [Mass/Vol] 124 mg/dL High 74-106 [facility] Comment on above: Result Comment: Fast ing Glucose result from 100 to 125 mg/dL suggests IMPAIRED HOMEOSTASIS per A.D.A. criteria. Performed By: #### L 700.6800, L100.0100, L500.4050 #### [facility] [address] [place], [address] Potassium [Moles/Vol] 3.9 mmol/L Normal 3.5-5.1 [facility] Comment on above: Performed By: #### L 700.6800, L100.0100, L500.4050 #### [facility] [address] [place], [address] Sodium [Moles/Vol] 140 mmol/L Normal 136-145 [facility] Comment on above: Performed By: #### L 700.6800, L100.0100, L500.4050 #### [facility] [address] [place], [address] T PROT 7.5 g/dL Normal 6.4-8.2 [facility] Comment on above: Performed By: #### L 700.6800, L100.0100, L500.4050 #### [facility] [address] [place], [address] Urea nitrogen [Mass/Vol] 10 mg/dL Normal 7-18 [facility] Comment on above: Performed By: #### L 700.6800, L100.0100, L500.4050 #### [facility] [address] [place], [address] Emergency Department Summary on 10-14-2023 Emergency Department Summary [facility] Medical Records Department [address] [address] Emergency Department Summary 10/14/23 MR#: [id number] Acct: [id number] Name: BRANDEN LEAL Rep #: [id number] : 1975 48 From: Racquel Chen DO PCP: Care Physician,No Primary Status:DEP ER Location: ED HPI History of Present Illness Chief Complaint: Flank Pain Detail of Chief Complaint: Left flank pain Informant: patient Narrative Narrative: Patient presents with complaint of not feeling well for the last 4 to 5 days. She complains of some discomfort in her left flank. She complains of brain fog and an odor to her urine. She has had some chills. Her urine looks somewhat milky. Patient states that she felt similarly about a year ago and had to be admitted because she had an obstructed left ureter due to some kidney stones and possible congenital abnormality. She was treated with antibiotics and resolved. She did not require any type of intervention. Patient describes intermittent pressure and discomfort in her left side but does not anything for pain currently. [facility] Medical History Endometriosis Kidney cysts Migraine Pyelonephritis Ureter obstruction Home Medications ???Medication ???Instructions ???Recorded ???Last Taken ???Type hydrocodone-acetami nophen 5-325mg 1 tab PO Q6H PRN PRN Pain 3 days 11/03/22 Unknown Rx 5mg-325mg #12 TABLETS ondansetron 4 mg disintegrating 4 mg PO Q8H PRN PRN Nausea #20 tabs 11/03/22 Unknown Rx tablet ciprofloxacin HCl 500 mg tablet 500 mg PO BID #14 tabs 11/07/22 Unknown Rx (Cipro) diphenoxylate-atrop ine 2.5 1 tab PO TID PRN diarrhea 5 days 11/11/22 Unknown Rx mg-0.025 mg tablet (Lomotil) #15 tabs prednisone 20 mg tablet 40 mg (2 x 20 mg) PO DAILY 7 days 06/19/23 Unknown Rx #14 tabs hydrocodone-acetami nophen 5-325mg 1 tab PO Q4H PRN PRN Pain 2 days 10/14/23 Unknown Rx 5mg-325mg #10 TABLETS sulfamethoxazole 800 1 tab PO BID #14 TABLETS 10/14/23 Unknown Rx mg-trimethoprim 160 mg tablet Allergy/AdvReac Type Severity Reaction Status Date / Time Penicillins Allergy Angioedema Verified 10/14/23 16:12 ciprofloxacin AdvReac Intermediate Other Verified 10/14/23 19:40 Surgical History H/O hernia repair H/O tubal ligation Hx of cholecystectomy Social History Smoking Status: Never smoker alcohol intake: current alcohol intake frequency: holidays/special occasions only substance use type: does not use ROS ROS ED Review of Systems ROS Unobtainable: other Constitutional Constitutional ED: Reports chills, lethargy and sweats; Denies fever(s) or weight loss Eyes Eyes: Denies blurry vision, change in vision or diplopia ENT ENT ED: Denies rhinorrhea or sore throat Cardiovascular Cardiovascular: Denies chest pain, orthopnea or racing heartbeat Respiratory/Chest Respiratory/Chest: Denies cough, dyspnea, dyspnea on exertion, orthopnea or sputum Gastrointestinal Gastrointestinal: Reports abdominal pain; Denies diarrhea, nausea or vomiting Genitourinary Genitourinary ED: Denies dysuria, hematuria or urinary frequency Musculoskeletal Musculoskeletal: Reports back pain; Denies arthralgias, myalgias or neck pain Integumentary Denies abscess, Abrasions or rash Neurologic Neurologic: Denies headache(s) or weakness Psychiatric Psychiatric: Denies anxiety, depression or suicidal thoughts Endocrine Endocrinology: Denies polydipsia, polyphagia or polyuria Hematologic/Lymphat ic Hematologic/Lymphat ic: Denies easy bleeding, easy bruising or lymphadenopathy Allergic/Immunologi c Allergic/Immunologi c ED: Denies mouth swelling, tongue swelling or urticaria EXAM Physical Exam Const Vital Signs: 10/14/23 16:11 10/14/23 18:11 10/14/23 20:00 Temperature 97.2 F L Temperature Source Temporal Pulse Rate 87 92 91 Respiratory Rate 18 18 16 Blood Pressure 171/90 H 134/88 H 133/91 H Blood Pressure Mean 117 103 105 Pulse Ox 100 96 97 Oxygen Delivery Method Room Air Room Air Room Air Positive well nourished and well developed General Appearance ED: well developed and NAD HEENT Reports TM's clear and moist mucous membranes normocephalic and atraumatic; Negative for trauma or tenderness Tympanic Membrane ED: Yes TM's clear Eyes PERRL and EOMs intact bilaterally General Eye ED: Negative for pale conjunctiva or scleral icterus Neck no lymphadenopathy, supple and no JVD General: Negative for tenderness Chest Wall inspection of chest normal and palpation of chest normal Chest: Negative for tenderness Resp normal respiratory effort and clear to auscultation bilaterally Effort and Inspection: N (more content not included)... Normal [facility] ,Serum,hCG Quali.on 10-14-2023 HCG, SERUM QUAL Negative Normal [facility] Comment on above: Order Comment: if fe male and of childbearing age (8-55 years old) Performed By: #### L 700.6800, L100.0100, L500.4050 #### [facility] [address] [place], [address] Urinalysis, Completeon 10-13 BACTERIA 3+ /hpf Normal None Seen [facility] Comment on above: Order Comment: CLEAN CATCH Performed By: #### L 400.0001 #### [facility] [address] [place], [address] RBC 0-5 SEEN Normal 0-5 [facility] Comment on above: Order Comment: CLEAN CATCH Performed By: #### L 400.0001 #### [facility] [address] [place], [address] WBC >100 SEEN Normal 0-5 [facility] Comment on above: Order Comment: CLEAN CATCH Performed By: #### L 400.0001 #### [facility] [address] [place], [address] EPI,SQUAMOUS 0 SEEN Normal 5-10 [facility] Comment on above: Order Comment: CLEAN CATCH Performed By: #### L 400.0001 #### [facility] [address] [place], [address] Mucus Ql (Urine sed) 0 SEEN Normal [facility] Comment on above: Order Comment: CLEAN CATCH Performed By: #### L 400.0001 #### [facility] [place], [address] Absolute lymphocyte countOrd ered By: Lisa Castillo on 06-23-2023 Lymphocytes Auto (Unsp spec) [#/Vol] 4.10 10*3/uL 0.83-4.51 [facility] Automated lymphocyte count a s percentage of total leukocytesOrdered By: Lisa Castillo on 06-23-2023 Lymphocytes/100 WBC Auto (Unsp spec) 30.6 % 19-41 [facility] Basophil percentageOrdered B y: Lisa Castillo on 06-23-2023 Basophils/100 WBC (Bld) 0.3 % 0-1 [facility] Chloride [Moles/Vol] 104 mmol/L 98-107 [facility] Eosinophils/100 WBC (Bld) 0.6 % 0-5 [facility] Glucose [Mass/Vol] 173 mg/dL 74-106 [facility] Comment on above: Fasting Glucose resu lt greater than or equal to 126 mg/dL suggests DIABETES MELLITUS per A.D.A. criteria. Hemoglobin (Bld) [Mass/Vol] 13.5 g/dL 12.0-15.0 [facility] Monocytes/100 WBC (Bld) 5.9 % 0-10 [facility] Neutrophils (Bld) [#/Vol] 8.4 10*3/uL 2.0-7.7 [facility] Neutrophils/100 WBC (Bld) 62.2 % 47-70 [facility] Potassium [Moles/Vol] 3.7 mmol/L 3.5-5.1 [facility] Comment on above: Moderate Hemolysis, Result may be falsely increased. Sodium [Moles/Vol] 139 mmol/L 136-145 [facility] WBC (Bld) [#/Vol] 13.4 10*3/uL 4.4-11.0 [facility] Determination of erythrocyte mean corpuscular volume (MCV)Ordered By: Lisa Castillo on 06-23-2023 MCV (RBC) [Entitic vol] 85.5 fL 81-99 [facility] Erythrocyte distribution wid th ratioOrdered By: Lisa Castillo on 06-23-2023 Erythrocyte distribution width (RBC) [Ratio] 13.0 % 11.6-14.6 [facility] Erythrocyte distribution wid th standard deviationOrdered By: Lisa Castillo on 06-23-2023 Erythrocyte distribution width (RBC) [Entitic vol] 39.8 fL 35.1-43.9 [facility] Erythrocyte sedimentation ra teOrdered By: Lisa Castillo on 06-23-2023 ESR (Bld) [Velocity] 17 mm/h 0-30 [facility] Hematocrit Auto (Bld) [Volum e fraction]Ordered By: Lisa Castillo on 06-23-2023 Hematocrit (Bld) [Volume fraction] 41.9 % 37-47 [facility] Immature granulocytes/100 WB C Auto (Bld)Ordered By: Lisa Castillo on 06-23-2023 Immature granulocytes/100 WBC (Bld) 0.400 % 0.0-0.9 [facility] Comment on above: IG% - Immature Granu locytes (promyelocytes, myelocytes and metamyelocytes) > 1% indicates that a LEFT SHIFT is Present. Laboratory - Chemistry and C hemistry - challengeOrdered By: Lisa Castillo on 06-23-2023 CO2 [Moles/Vol] 29.0 mmol/L 21.0-32.0 [facility] Urea nitrogen/Creatinine [Mass ratio] 21.7 mg/mg 10-20 [facility] - Hematology and Cell countsOrdered By: Lisa Castillo on 06-23-2023 MCH (RBC) [Entitic mass] 27.6 pg 27.0-32.0 [facility] MCHC (RBC) [Mass/Vol] 32.2 g/dL 32-36 [facility] Nucleated RBC/100 WBC (Bld) [Ratio] 0 % 0-5 [facility] Platelet mean volume (Bld) [Entitic vol] 10.0 fL 6.2-12.0 [facility] Platelets (Bld) [#/Vol] 342 10*3/uL 150-450 [facility] No Panel InformationOrdered By: Lisa Castillo on 06-23-2023 C-Reactive Protein Extended Range 4.81 mg/L 0.0-3.0 [facility] Comment on above: C-Reactive Protein ( CRP) provides useful information for thediagnosis, therapy and monitoring of inflammatory processesand associated diseases. For the evaluation of Relative Riskfor Cardiovascular Disease, a High Sensitivity CRP (HSCRP)should be ordered. Estimated Creatinine Clearance Calc 112.57 ml/min [facility] Estimated GFR (MDRD) Amer 89 mL/min >60 [facility] Comment on above: GFR Calc Estimated GFR (MDRD) Non-Af Amer 73 mL/min >60 [facility] Comment on above: Non- GFR Calc RBC Auto (Bld) [#/Vol]Ordere d By: Lisa Castillo on 06-23-2023 RBC (Bld) [#/Vol] 4.90 10*6/uL 4.2-5.4 [facility] Serum or plasma calcium kassidy urement (mass/volume)Ordered By: Lisa Castillo on 06-23-2023 Calcium [Mass/Vol] 9.3 mg/dL 8.5-10.1 [facility] Serum or plasma creatinine m easurement (mass/volume)Ordered By: Lisa Castillo on 06-23-2023 Creatinine [Mass/Vol] 0.88 mg/dL 0.55-1.02 [facility] Comment on above: The validity of the calculated GFR & GFRAA in patients over 70 years has not been determined. Clinical correlation is essential. Serum or plasma urea nitroge n measurement (mass/volume)Ordered By: Lisa Castillo on 06-23-2023 Urea nitrogen [Mass/Vol] 19 mg/dL 7-18 [facility] Thin prep Papanicolaou smear with manual screeningOrdered By: Lisa Castillo on 06-23-2023 Thin prep Papanicolaou smear with manual screening 6 5-15 [facility] Absolute lymphocyte countOrd ered By: Mary Rodriguez on 11-06-2022 Lymphocytes Auto (Unsp spec) [#/Vol] 1.47 10*3/uL 0.83-4.51 [facility] Basophil percentageOrdered B y: Mary Rodriguez on 11-06-2022 Basophils/100 WBC (Bld) 0.2 % 0-1 [facility] Chloride [Moles/Vol] 105 mmol/L 98-107 [facility] Eosinophils/100 WBC (Bld) 1.7 % 0-5 [facility] Glucose [Mass/Vol] 133 mg/dL 74-106 [facility] Comment on above: Fasting Glucose resu lt greater than or equal to 126 mg/dL suggests DIABETES MELLITUS per A.D.A. criteria. Neutrophils (Bld) [#/Vol] 6.7 10*3/uL 2.0-7.7 [facility] Neutrophils/100 WBC (Bld) 73.9 % 47-70 [facility] Potassium [Moles/Vol] 3.5 mmol/L 3.5-5.1 [facility] Sodium [Moles/Vol] 137 mmol/L 136-145 [facility] WBC (Bld) [#/Vol] 9.1 10*3/uL 4.4-11.0 [facility] Blood erythrocytes count (nu mber/volume)Ordered By: Mary Rodriguez on 11-06-2022 RBC (Bld) [#/Vol] 3.89 10*6/uL 4.2-5.4 [facility] Blood hemoglobin measurement (mass/volume)Ordered By: Mary Rodriguez on 11-06-2022 Hemoglobin (Bld) [Mass/Vol] 10.9 g/dL 12.0-15.0 [facility] Blood lymphocytes/100 leukoc ytesOrdered By: Mary Rodriguez on 11-06-2022 Lymphocytes/100 WBC (Bld) 16.2 % 19-41 [facility] Blood monocytes/100 leukocyt esOrdered By: Mary Rodriguez on 11-06-2022 Monocytes/100 WBC (Bld) 7.2 % 0-10 [facility] Blood platelet mean volumeOr dered By: Mary Rodriguez on 11-06-2022 Platelet mean volume (Bld) [Entitic vol] 9.9 fL 6.2-12.0 [facility] Determination of erythrocyte mean corpuscular volume (MCV)Ordered By: Mary Rodriguez on 11-06-2022 MCV (RBC) [Entitic vol] 88.2 fL 81-99 [facility] Hematocrit Auto (Bld) [Volum e fraction]Ordered By: Mary Rodriguez on 11-06-2022 Hematocrit (Bld) [Volume fraction] 34.3 % 37-47 [facility] - Chemistry and C hemistry - challengeOrdered By: Mary Rodriguez on 11-06-2022 CO2 [Moles/Vol] 26.0 mmol/L 21.0-32.0 [facility] Urea nitrogen/Creatinine [Mass ratio] 10.4 mg/mg 10-20 [facility] - Hematology and Cell countsOrdered By: Mary Rodriguez on 11-06-2022 Erythrocyte distribution width (RBC) [Entitic vol] 42.5 fL 35.1-43.9 [facility] Erythrocyte distribution width (RBC) [Ratio] 13.2 % 11.6-14.6 [facility] Immature granulocytes/100 WBC (Bld) 0.800 % 0.0-0.9 [facility] Comment on above: IG% - Immature Granu locytes (promyelocytes, myelocytes and metamyelocytes) > 1% indicates that a LEFT SHIFT is Present. MCH (RBC) [Entitic mass] 28.0 pg 27.0-32.0 [facility] Nucleated RBC/100 WBC (Bld) [Ratio] 0 % 0-5 [facility] MCHC Auto (RBC) [Mass/Vol]Or dered By: Mary Rodriguez on 11-06-2022 MCHC (RBC) [Mass/Vol] 31.8 g/dL 32-36 [facility] No Panel InformationOrdered By: Mary Rodriguez on 11-06-2022 Estimated Creatinine Clearance Calc 92.09 ml/min [facility] Estimated GFR (MDRD) Amer 104 mL/min >60 [facility] Comment on above: GFR Calc Estimated GFR (MDRD) Non-Af Amer 86 mL/min >60 [facility] Comment on above: Non- GFR Calc Platelets bldOrdered By: Josie Rodriguez on 11-06-2022 Platelets (Bld) [#/Vol] 294 10*3/uL 150-450 [facility] Serum or plasma calcium kassidy urement (mass/volume)Ordered By: Mary Rodriguez on 11-06-2022 Calcium [Mass/Vol] 9.2 mg/dL 8.5-10.1 [facility] Serum or plasma creatinine m easurement (mass/volume)Ordered By: Mary Rodriguez on 11-06-2022 Creatinine [Mass/Vol] 0.77 mg/dL 0.55-1.02 [facility] Comment on above: The validity of the calculated GFR & GFRAA in patients over 70 years has not been determined. Clinical correlation is essential. Serum or plasma urea nitroge n measurement (mass/volume)Ordered By: Mary Rodriguez on 11-06-2022 Urea nitrogen [Mass/Vol] 8 mg/dL 7-18 [facility] Thin prep Papanicolaou smear with manual screeningOrdered By: Mary Rodriguez on 11-06-2022 Thin prep Papanicolaou smear with manual screening 6 5-15 [facility] Basophil percentageOrdered B y: Avery Stafford on 11-05-2022 Bilirubin [Mass/Vol] 0.40 mg/dL 0.20-1.00 [facility] Comment on above: For patients on eltr ombopag therapy, use of Dimension [place] TBIL is not recommended. Lactate [Moles/Vol] 0.8 mmol/L 0.4-2.0 [facility] Protein [Mass/Vol] 7.8 g/dL 6.4-8.2 [facility] Culture, urineOrdered By: Reed Stafford on 11-05-2022 Bacteria identified Cx Nom (U) Culture exhibits no growth. [facility] INR in Blood by Coagulation assayOrdered By: Avery Stafford on 11-05-2022 INR Coag (Bld) [Relative time] 1.1 {INR} [facility] Laboratory - Chemistry and C hemistry - challengeOrdered By: Avery Stafford on 11-05-2022 ALP [Catalytic activity/Vol] 111 U/L 45-117 [facility] ALT [Catalytic activity/Vol] 38 U/L 13-56 [facility] Globulin (S) [Mass/Vol] 5.0 g/dL 2.2-4.2 [facility] Laboratory - CoagulationOrde red By: Avery Stafford on 11-05-2022 aPTT Coag (Bld) [Time] 40.2 s 24.1-36.2 [facility] PT Coag (PPP) [Time] 14.5 s 11.7-14.9 [facility] Laboratory - Microbiology an d Antimicrobial susceptibilityOrdered By: Avery Stafford on 11-05-2022 Bacteria identified Cx Nom (Bld) No growth in 5 days. [facility] Serum or plasma albumin kassidy urement (mass/volume)Ordered By: Averysulma Stafford on 11-05-2022 Albumin [Mass/Vol] 2.8 g/dL 3.2-5.0 [facility] Serum or plasma albumin/glob ulin mass ratioOrdered By: [facility] on 11-05-2022 Albumin/Globulin [Mass ratio] 0.6 {ratio} 0.9-2.4 [facility] Thin prep Papanicolaou smear with manual screeningOrdered By: Averysulma Stafford on 11-05-2022 Thin prep Papanicolaou smear with manual screening 24 U/L 15-37 [facility] Absolute lymphocyte countOrd ered By: Bertrand Hopper on 11-03-2022 Lymphocytes Auto (Unsp spec) [#/Vol] 1.09 10*3/uL 0.83-4.51 [facility] Basophil percentageOrdered B y: Bertrand Hopper on 11-03-2022 Basophil percentage >100 SEEN /hpf 0-5 [facility] Basophils/100 WBC (Bld) 0.2 % 0-1 [facility] Bilirubin [Mass/Vol] 0.60 mg/dL 0.20-1.00 [facility] Comment on above: For patients on eltr ombopag therapy, use of Dimension [place] TBIL is not recommended. Chloride [Moles/Vol] 104 mmol/L 98-107 [facility] Eosinophils/100 WBC (Bld) 1.2 % 0-5 [facility] Glucose [Mass/Vol] 187 mg/dL 74-106 [facility] Comment on above: Fasting Glucose resu lt greater than or equal to 126 mg/dL suggests DIABETES MELLITUS per A.D.A. criteria. Neutrophils (Bld) [#/Vol] 8.4 10*3/uL 2.0-7.7 [facility] Neutrophils/100 WBC (Bld) 81.3 % 47-70 [facility] Potassium [Moles/Vol] 3.6 mmol/L 3.5-5.1 [facility] Protein [Mass/Vol] 7.6 g/dL 6.4-8.2 [facility] Sodium [Moles/Vol] 138 mmol/L 136-145 [facility] WBC (Bld) [#/Vol] 10.4 10*3/uL 4.4-11.0 [facility] Bilirubin Test strip Ql (U)O rdered By: Bertrand Hopper on 11-03-2022 Bilirubin Ql (U) Negative Negative [facility] Blood erythrocytes count (nu mber/volume)Ordered By: Bertrand Hopper on 11-03-2022 RBC (Bld) [#/Vol] 4.17 10*6/uL 4.2-5.4 [facility] Blood hemoglobin measurement (mass/volume)Ordered By: Bertrand Hopper on 11-03-2022 Hemoglobin (Bld) [Mass/Vol] 11.8 g/dL 12.0-15.0 [facility] Blood lymphocytes/100 leukoc ytesOrdered By: Bertrand Hopper on 11-03-2022 Lymphocytes/100 WBC (Bld) 10.5 % 19-41 [facility] Blood monocytes/100 leukocyt esOrdered By: Bertrand Hopper on 11-03-2022 Monocytes/100 WBC (Bld) 6.2 % 0-10 [facility] Blood platelet mean volumeOr dered By: Bertrand Hopper on 11-03-2022 Platelet mean volume (Bld) [Entitic vol] 10.0 fL 6.2-12.0 [facility] Culture, urineOrdered By: Do yuan Hopper on 11-03-2022 Bacteria identified Cx Nom (U) Presumptive E. coli [facility] Determination of erythrocyte mean corpuscular volume (MCV)Ordered By: Bertrand Hopper on 11-03-2022 MCV (RBC) [Entitic vol] 87.3 fL 81-99 [facility] Hematocrit Auto (Bld) [Volum e fraction]Ordered By: Bertrand Hopper on 11-03-2022 Hematocrit (Bld) [Volume fraction] 36.4 % 37-47 [facility] Ketones Test strip Ql (U)Ord ered By: Bertrand Hopper on 11-03-2022 Ketones Ql (U) 5 mg/dl Negative [facility] Laboratory - Chemistry and C hemistry - challengeOrdered By: Bertrand Hopper on 11-03-2022 ALP [Catalytic activity/Vol] 79 U/L 45-117 [facility] ALT [Catalytic activity/Vol] 23 U/L 13-56 [facility] CO2 [Moles/Vol] 28.0 mmol/L 21.0-32.0 [facility] Globulin (S) [Mass/Vol] 4.7 g/dL 2.2-4.2 [facility] Lipase [Catalytic activity/Vol] 17 U/L 13-75 [facility] Comment on above: Please note:LIPASE r evised reference range effective 22. New Lipase methodology. Expected to produce lower values than the previous assay method. NEW Reference Range: 13 - 75 U/L Urea nitrogen/Creatinine [Mass ratio] 10.4 mg/mg 10-20 [facility] Laboratory - Hematology and Cell countsOrdered By: Bertrand Hopper on 11-03-2022 Erythrocyte distribution width (RBC) [Entitic vol] 41.9 fL 35.1-43.9 [facility] Erythrocyte distribution width (RBC) [Ratio] 13.2 % 11.6-14.6 [facility] Immature granulocytes/100 WBC (Bld) 0.600 % 0.0-0.9 [facility] Comment on above: IG% - Immature Granu locytes (promyelocytes, myelocytes and metamyelocytes) > 1% indicates that a LEFT SHIFT is Present. MCH (RBC) [Entitic mass] 28.3 pg 27.0-32.0 [facility] Nucleated RBC/100 WBC (Bld) [Ratio] 0 % 0-5 [facility] MCHC Auto (RBC) [Mass/Vol]Or dered By: Bertrand Hopper on 11-03-2022 MCHC (RBC) [Mass/Vol] 32.4 g/dL 32-36 [facility] Mucus LM Ql (Urine sed)Order ed By: Bertrand Hopper on 11-03-2022 Mucus Ql (Urine sed) 0 SEEN /hpf [facility] Nitrite Test strip Ql (U)Ord ered By: Bertrand Hopper on 11-03-2022 Nitrite Ql (U) Positive Negative [facility] No Panel InformationOrdered By: Bertrand Hopper on 11-03-2022 Estimated Creatinine Clearance Calc 92.09 ml/min [facility] Estimated GFR (MDRD) Amer 104 mL/min >60 [facility] Comment on above: GFR Calc Estimated GFR (MDRD) Non-Af Amer 86 mL/min >60 [facility] Comment on above: Non- GFR Calc Platelets bldOrdered By: Buzz Hopper on 11-03-2022 Platelets (Bld) [#/Vol] 214 10*3/uL 150-450 [facility] Protein Test strip Ql (U)Ord ered By: Bertrand Hopper on 11-03-2022 Protein Ql (U) 100 mg/dl Negative [facility] Serum or plasma albumin kassidy urement (mass/volume)Ordered By: Bertrand Hopper on 11-03-2022 Albumin [Mass/Vol] 2.9 g/dL 3.2-5.0 [facility] Serum or plasma albumin/glob ulin mass ratioOrdered By: Bertrand Hopper on 11-03-2022 Albumin/Globulin [Mass ratio] 0.6 {ratio} 0.9-2.4 [facility] Serum or plasma calcium kassidy urement (mass/volume)Ordered By: Bertrand Hopper on 11-03-2022 Calcium [Mass/Vol] 9.3 mg/dL 8.5-10.1 [facility] Serum or plasma creatinine m easurement (mass/volume)Ordered By: Bertrand Hopper on 11-03-2022 Creatinine [Mass/Vol] 0.77 mg/dL 0.55-1.02 [facility] Comment on above: The validity of the calculated GFR & GFRAA in patients over 70 years has not been determined. Clinical correlation is essential. Serum or plasma urea nitroge n measurement (mass/volume)Ordered By: Bertrand Hopper on 11-03-2022 Urea nitrogen [Mass/Vol] 8 mg/dL 7-18 [facility] Squamous epithelial cells de tection in urine sediment by light microscopyOrdered By: Bertrand Hopper on 11-03-2022 Epithelial cells.squamous LM Ql (Urine sed) 0-5 SEEN /hpf 5-10 [facility] Thin prep Papanicolaou smear with manual screeningOrdered By: Bertrand Hopper on 11-03-2022 Thin prep Papanicolaou smear with manual screening 13 U/L 15-37 [facility] Thin prep Papanicolaou smear with manual screening 6 5-15 [facility] Urine blood detectionOrdered By: Bertrand Hopper on 11-03-2022 RBC Ql (U) 250 /ul Negative [facility] RBC Ql (U) 10-25 SEEN /hpf 0-5 [facility] Urine clarityOrdered By: Buzz Hopper on 11-03-2022 Clarity (U) Cloudy Clear [facility] Urine color determinationOrd ered By: Bertrand Hopper on 11-03-2022 Color (U) Yellow Yellow [facility] Urine glucose detectionOrder ed By: Bertrand Hopper on 11-03-2022 Glucose Ql (U) 50 mg/dl Normal [facility] Urine leukocyte esterase det ection by dipstickOrdered By: Bertrand Hopper on 11-03-2022 Leukocyte esterase Test strip Ql (U) 500 /ul Negative [facility] Urine pHOrdered By: Bertrand steve on 11-03-2022 pH (U) 6.0 [pH] 5.0 - 8.0 [facility] Urine sediment bacteria coun t by microscopy (number/high power field)Ordered By: Bertrand Hopper on 11-03-2022 Bacteria LM.HPF (Urine sed) [#/Area] 4 /[HPF] None Seen [facility] Urine specific gravity measu rementOrdered By: Bertrand Hopper on 11-03-2022 Specific gravity (U) [Rel density] 1.020 1.002-1.030 [facility] Urobilinogen Auto test strip Ql (U)Ordered By: Bertrand Hopper on 11-03-2022 Urobilinogen Ql (U) 1 mg/dl Normal [facility] Absolute lymphocyte countOrd ered By: Dr. Allen on 08-04-2022 Lymphocytes Auto (Unsp spec) [#/Vol] 1.33 10*3/uL 0.83-4.51 [facility] Basophil percentageOrdered B y: Dr. Allen on 08-04-2022 Basophils/100 WBC (Bld) 0.5 % 0-1 [facility] Chloride [Moles/Vol] 106 mmol/L 98-107 [facility] Eosinophils/100 WBC (Bld) 2.6 % 0-5 [facility] Glucose [Mass/Vol] 185 mg/dL 74-106 [facility] Comment on above: Fasting Glucose resu lt greater than or equal to 126 mg/dL suggests DIABETES MELLITUS per A.D.A. criteria. Neutrophils (Bld) [#/Vol] 3.7 10*3/uL 2.0-7.7 [facility] Neutrophils/100 WBC (Bld) 63.7 % 47-70 [facility] Potassium [Moles/Vol] 3.8 mmol/L 3.5-5.1 [facility] Sodium [Moles/Vol] 137 mmol/L 136-145 [facility] WBC (Bld) [#/Vol] 5.8 10*3/uL 4.4-11.0 [facility] Blood erythrocytes count (nu mber/volume)Ordered By: Dr. Allen on 08-04-2022 RBC (Bld) [#/Vol] 4.65 10*6/uL 4.2-5.4 [facility] Blood hemoglobin measurement (mass/volume)Ordered By: Dr. Allen on 08-04-2022 Hemoglobin (Bld) [Mass/Vol] 13.1 g/dL 12.0-15.0 [facility] Blood lymphocytes/100 leukoc ytesOrdered By: Dr. Allen on 08-04-2022 Lymphocytes/100 WBC (Bld) 22.9 % 19-41 [facility] Blood monocytes/100 leukocyt esOrdered By: Dr. Allen on 08-04-2022 Monocytes/100 WBC (Bld) 9.3 % 0-10 [facility] Blood platelet mean volumeOr dered By: Dr. Allen on 08-04-2022 Platelet mean volume (Bld) [Entitic vol] 10.1 fL 6.2-12.0 [facility] Determination of erythrocyte mean corpuscular volume (MCV)Ordered By: Dr. Allen on 08-04-2022 MCV (RBC) [Entitic vol] 88.4 fL 81-99 [facility] Hematocrit Auto (Bld) [Volum e fraction]Ordered By: Dr. Allen on 08-04-2022 Hematocrit (Bld) [Volume fraction] 41.1 % 37-47 [facility] Influenza virus A and B and SARS-CoV-2 (COVID-19) Ag panel - Upper respiratory specimOrdered By: Catracho Allen on 08-04-2022 SARS-CoV-2 (COVID-19) RNA ELLIOTT+probe Ql (Resp) [facility] Influenza virus A and B and SARS-CoV-2 (COVID-19) Ag panel - Upper respiratory specimOrdered By: Dr. Allen on 08-04-2022 SARS-CoV-2 (COVID-19) RNA ELLIOTT+probe Ql (Resp) [facility] Laboratory - Chemistry and C hemistry - challengeOrdered By: Dr. Allen on 08-04-2022 CO2 [Moles/Vol] 28.0 mmol/L 21.0-32.0 [facility] Urea nitrogen/Creatinine [Mass ratio] 14.2 mg/mg 10-20 [facility] Laboratory - Hematology and Cell countsOrdered By: Dr. Allen on 08-04-2022 Erythrocyte distribution width (RBC) [Entitic vol] 41.6 fL 35.1-43.9 [facility] Erythrocyte distribution width (RBC) [Ratio] 12.8 % 11.6-14.6 [facility] Immature granulocytes/100 WBC (Bld) 1.000 % 0.0-0.9 [facility] Comment on above: IG% - Immature Granu locytes (promyelocytes, myelocytes and metamyelocytes) > 1% indicates that a LEFT SHIFT is Present. MCH (RBC) [Entitic mass] 28.2 pg 27.0-32.0 [facility] Nucleated RBC/100 WBC (Bld) [Ratio] 0 % 0-5 [facility] MCHC Auto (RBC) [Mass/Vol]Or dered By: Dr. Allen on 08-04-2022 MCHC (RBC) [Mass/Vol] 31.9 g/dL 32-36 [facility] No Panel InformationOrdered By: Dr. Allen on 08-04-2022 Estimated Creatinine Clearance Calc 90.91 ml/min [facility] Estimated GFR (MDRD) Amer 103 mL/min >60 [facility] Comment on above: GFR Calc Estimated GFR (MDRD) Non-Af Amer 85 mL/min >60 [facility] Comment on above: Non- GFR Calc Platelets bldOrdered By: Dr. Allen on 08-04-2022 Platelets (Bld) [#/Vol] 244 10*3/uL 150-450 [facility] Serum or plasma calcium kassidy urement (mass/volume)Ordered By: Dr. Allen on 08-04-2022 Calcium [Mass/Vol] 9.5 mg/dL 8.5-10.1 [facility] Serum or plasma creatinine m easurement (mass/volume)Ordered By: Dr. Allen on 08-04-2022 Creatinine [Mass/Vol] 0.78 mg/dL 0.55-1.02 [facility] Comment on above: The validity of the calculated GFR & GFRAA in patients over 70 years has not been determined. Clinical correlation is essential. Serum or plasma urea nitroge n measurement (mass/volume)Ordered By: Dr. Allen on 08-04-2022 Urea nitrogen [Mass/Vol] 11 mg/dL 7-18 [facility] Thin prep Papanicolaou smear with manual screeningOrdered By: Dr. Allen on 08-04-2022 Thin prep Papanicolaou smear with manual screening 3 5-15 [facility] Absolute lymphocyte counton 01-11-2022 Lymphocytes Auto (Unsp spec) [#/Vol] 1.75 10*3/uL 0.83-4.51 [facility] Work Phone: Basophil percentageon 2021 Basophil percentage 0 SEEN /hpf 0-5 [facility] Work Phone: Basophils/100 WBC (Bld) 0.4 % 0-1 [facility] Work Phone: Bilirubin [Mass/Vol] 0.40 mg/dL 0.20-1.00 [facility] Work Phone: Comment on above: For patients on eltr ombopag therapy, use of Dimension [place] TBIL is not recommended. Chloride [Moles/Vol] 105 mmol/L 98-107 [facility] Work Phone: Eosinophils/100 WBC (Bld) 1.8 % 0-5 [facility] Work Phone: Glucose [Mass/Vol] 146 mg/dL 74-106 [facility] Work Phone: Comment on above: Fasting Glucose resu lt greater than or equal to 126 mg/dL suggests DIABETES MELLITUS per A.D.A. criteria. Neutrophils (Bld) [#/Vol] 5.0 10*3/uL 2.0-7.7 [facility] Work Phone: Neutrophils/100 WBC (Bld) 68.2 % 47-70 [facility] Work Phone: Potassium [Moles/Vol] 4.1 mmol/L 3.5-5.1 [facility] Work Phone: Protein [Mass/Vol] 7.6 g/dL 6.4-8.2 [facility] Work Phone: Sodium [Moles/Vol] 139 mmol/L 136-145 [facility] Work Phone: WBC (Bld) [#/Vol] 7.3 10*3/uL 4.4-11.0 [facility] Work Phone: Bilirubin Test strip Ql (U)o n 01-11-2022 Bilirubin Ql (U) Negative Negative [facility] Work Phone: Blood erythrocytes count (nu mber/volume)on 01-11-2022 RBC (Bld) [#/Vol] 4.79 10*6/uL 4.2-5.4 [facility] Work Phone: Blood hemoglobin measurement (mass/volume)on 01-11-2022 Hemoglobin (Bld) [Mass/Vol] 13.8 g/dL 12.0-15.0 [facility] Work Phone: Blood lymphocytes/100 leukoc yteson 01-11-2022 Lymphocytes/100 WBC (Bld) 23.8 % 19-41 [facility] Work Phone: Blood monocytes/100 leukocyt eson 01-11-2022 Monocytes/100 WBC (Bld) 5.3 % 0-10 [facility] Work Phone: Blood platelet mean volumeon 01-11-2022 Platelet mean volume (Bld) [Entitic vol] 10.3 fL 6.2-12.0 [facility] Work Phone: Determination of erythrocyte mean corpuscular volume (MCV)on 01-11-2022 MCV (RBC) [Entitic vol] 86.2 fL 81-99 [facility] Work Phone: Hematocrit Auto (Bld) [Volum e fraction]on 01-11-2022 Hematocrit (Bld) [Volume fraction] 41.3 % 37-47 [facility] Work Phone: Ketones Test strip Ql (U)on 01-11-2022 Ketones Ql (U) Negative Negative [facility] Work Phone: Laboratory - Chemistry and C hemistry - challengeon 01-11-2022 ALP [Catalytic activity/Vol] 66 U/L 45-117 [facility] Work Phone: ALT [Catalytic activity/Vol] 18 U/L 13-56 [facility] Work Phone: CO2 [Moles/Vol] 28.0 mmol/L 21.0-32.0 [facility] Work Phone: Globulin (S) [Mass/Vol] 4.1 g/dL 2.2-4.2 [facility] Work Phone: Lipase [Catalytic activity/Vol] 82 U/L 73-393 [facility] Work Phone: Urea nitrogen/Creatinine [Mass ratio] 16.8 mg/mg 10-20 [facility] Work Phone: Laboratory - Hematology and Cell countson 01-11-2022 Erythrocyte distribution width (RBC) [Entitic vol] 41.3 fL 35.1-43.9 [facility] Work Phone: Erythrocyte distribution width (RBC) [Ratio] 13.2 % 11.6-14.6 [facility] Work Phone: Immature granulocytes/100 WBC (Bld) 0.500 % 0.0-0.9 [facility] Work Phone: Comment on above: IG% - Immature Granu locytes (promyelocytes, myelocytes and metamyelocytes) > 1% indicates that a LEFT SHIFT is Present. MCH (RBC) [Entitic mass] 28.8 pg 27.0-32.0 [facility] Work Phone: Nucleated RBC/100 WBC (Bld) [Ratio] 0 % 0-5 [facility] Work Phone: MCHC Auto (RBC) [Mass/Vol]on 01-11-2022 MCHC (RBC) [Mass/Vol] 33.4 g/dL 32-36 [facility] Work Phone: Mucus LM Ql (Urine sed)on Mucus Ql (Urine sed) 0 SEEN /hpf [facility] Work Phone: Nitrite Test strip Ql (U)on 01-11-2022 Nitrite Ql (U) Negative Negative [facility] Work Phone: No Panel Informationon 01-11 Estimated Creatinine Clearance Calc 103.12 ml/min [facility] Work Phone: Estimated GFR (MDRD) Amer 113 mL/min >60 [facility] Work Phone: Comment on above: GFR Calc Estimated GFR (MDRD) Non-Af Amer 93 mL/min >60 [facility] Work Phone: Comment on above: Non- GFR Calc Platelets bldon 01-11-2022 Platelets (Bld) [#/Vol] 267 10*3/uL 150-450 [facility] Work Phone: Protein Test strip Ql (U)on 01-11-2022 Protein Ql (U) Negative Negative [facility] Work Phone: Serum or plasma albumin kassidy urement (mass/volume)on 01-11-2022 Albumin [Mass/Vol] 3.5 g/dL 3.2-5.0 [facility] Work Phone: Serum or plasma albumin/glob ulin mass ratioon 01-11-2022 Albumin/Globulin [Mass ratio] 0.9 {ratio} 0.9-2.4 [facility] Work Phone: Serum or plasma calcium kassidy urement (mass/volume)on 01-11-2022 Calcium [Mass/Vol] 9.3 mg/dL 8.5-10.1 [facility] Work Phone: Serum or plasma creatinine m easurement (mass/volume)on 01-11-2022 Creatinine [Mass/Vol] 0.72 mg/dL 0.55-1.02 [facility] Work Phone: Comment on above: The validity of the calculated GFR & GFRAA in patients over 70 years has not been determined. Clinical correlation is essential. Serum or plasma urea nitroge n measurement (mass/volume)on 01-11-2022 Urea nitrogen [Mass/Vol] 12 mg/dL 7-18 [facility] Work Phone: Squamous epithelial cells de tection in urine sediment by light microscopyon 01-11-2022 Epithelial cells.squamous LM Ql (Urine sed) 0-5 SEEN /hpf 5-10 [facility] Work Phone: Thin prep Papanicolaou smear with manual screeningon 01-11-2022 Thin prep Papanicolaou smear with manual screening 12 U/L 15-37 [facility] Work Phone: Thin prep Papanicolaou smear with manual screening 6 5-15 [facility] Work Phone: Urine blood detectionon 12-15 RBC Ql (U) 50 /ul Negative [facility] Work Phone: RBC Ql (U) 0 SEEN /hpf 0-5 [facility] Work Phone: Urine clarityon 01-11-2022 Clarity (U) Clear Clear [facility] Work Phone: Urine color determinationon 01-11-2022 Color (U) Straw Yellow [facility] [facility] Work Phone: Urine glucose detectionon Glucose Ql (U) Normal mg/dl Normal [facility] Work Phone: Urine leukocyte esterase det ection by dipstickon 01-11-2022 Leukocyte esterase Test strip Ql (U) 25 /ul Negative [facility] Work Phone: Urine pHon 01-11-2022 pH (U) 6.5 [pH] 5.0 - 8.0 [facility] Work Phone: Urine sediment bacteria coun t by microscopy (number/high power field)on 01-11-2022 Bacteria LM.HPF (Urine sed) [#/Area] 0 /[HPF] None Seen [facility] Work Phone: Urine specific gravity measu rementon 01-11-2022 Specific gravity (U) [Rel density] 1.010 1.002-1.030 [facility] Work Phone: Urobilinogen Auto test strip Ql (U)on 01-11-2022 Urobilinogen Ql (U) Normal mg/dl Normal [facility] Work Phone: Vital Signs Date Time Vital Sign Value Performing Clinician Faci lity 07-02-2024 07:46-0400 Body temperature 97.6 [degF] No Primary Care Physician [facility] 07-02-2024 07:46-0400 Diastolic blood pressure 88 mm[Hg] No Primary Care Physician [facility] 07-02-2024 07:46-0400 Heart rate 84 /min No Primary Care Physician [facility] 07-02-2024 07:46-0400 Respiratory rate 16 /min No Primary Care Physician [facility] 07-02-2024 07:46-0400 SaO2% (BldA) [Mass fraction] 93 % No Primary Care Physician [facility] 07-02-2024 07:46-0400 Systolic blood pressure 151 mm[Hg] No Primary Care Physician [facility] 07-02-2024 06:00-0400 Body height 170.18 cm No Primary Care Physician [facility] 07-02-2024 06:00-0400 Body mass index (BMI) [Ratio] 44.8 kg/m2 No Primary Care Physician [facility] 07-02-2024 06:00-0400 Body weight 129.8 kg No Primary Care Physician [facility] 06-29-2024 15:26-0400 Body temperature 98.2 [degF] No Primary Care Physician [facility] 06-29-2024 15:26-0400 Diastolic blood pressure 79 mm[Hg] No Primary Care Physician [facility] 06-29-2024 15:26-0400 Heart rate 89 /min No Primary Care Physician [facility] 06-29-2024 15:26-0400 Respiratory rate 16 /min No Primary Care Physician [facility] 06-29-2024 15:26-0400 SaO2% (BldA) [Mass fraction] 98 % No Primary Care Physician [facility] 06-29-2024 15:26-0400 Systolic blood pressure 134 mm[Hg] No Primary Care Physician [facility] 06-29-2024 11:09-0400 Body height 170.18 cm No Primary Care Physician [facility] 06-29-2024 11:09-0400 Body mass index (BMI) [Ratio] 44.6 kg/m2 No Primary Care Physician [facility] 06-29-2024 11:09-0400 Body weight 129.5 kg No Primary Care Physician [facility] 06-23-2023 23:30-0400 Body temperature 98.3 [degF] [facility] 06-23-2023 23:30-0400 Diastolic blood pressure 75 mm[Hg] [facility] 06-23-2023 23:30-0400 Heart rate 75 /min [facility] 06-23-2023 23:30-0400 Respiratory rate 18 /min [facility] 06-23-2023 23:30-0400 SaO2% (BldA) [Mass fraction] 100 % [facility] 06-23-2023 23:30-0400 Systolic blood pressure 125 mm[Hg] [facility] 06-23-2023 20:47-0400 Body height 172.72 cm [facility] 06-23-2023 20:47-0400 Body mass index (BMI) [Ratio] 43.4 kg/m2 [facility] 06-23-2023 20:47-0400 Body weight 129.72 kg [facility] 06-19-2023 22:29-0500 Body temperature 97.6 [degF] [facility] 06-19-2023 22:29-0500 Diastolic blood pressure 79 mm[Hg] [facility] 06-19-2023 22:29-0500 Heart rate 68 /min [facility] 06-19-2023 22:29-0500 Respiratory rate 14 /min [facility] 06-19-2023 22:29-0500 SaO2% (BldA) [Mass fraction] 99 % [facility] 06-19-2023 22:29-0500 Systolic blood pressure 150 mm[Hg] [facility] 06-19-2023 20:24-0500 Body height 175.26 cm [facility] 06-19-2023 20:24-0500 Body mass index (BMI) [Ratio] 43.7 kg/m2 [facility] 06-19-2023 20:24-0500 Body weight 134.26 kg [facility] 11-11-2022 20:10-0400 Body height 172.72 cm [facility] 11-11-2022 20:10-0400 Body mass index (BMI) [Ratio] 42.9 kg/m2 [facility] 11-11-2022 20:10-0400 Body temperature 97.3 [degF] [facility] 11-11-2022 20:10-0400 Body weight 128.04 kg [facility] 11-11-2022 20:10-0400 Diastolic blood pressure 90 mm[Hg] [facility] 11-11-2022 20:10-0400 Heart rate 103 /min [facility] 11-11-2022 20:10-0400 Respiratory rate 18 /min [facility] 11-11-2022 20:10-0400 SaO2% (BldA) [Mass fraction] 93 % [facility] 11-11-2022 20:10-0400 Systolic blood pressure 147 mm[Hg] [facility] 11-07-2022 11:37-0400 Body temperature 98 [degF] [facility] 11-07-2022 11:37-0400 Diastolic blood pressure 88 mm[Hg] [facility] 11-07-2022 11:37-0400 Heart rate 88 /min [facility] 11-07-2022 11:37-0400 Respiratory rate 16 /min [facility] 11-07-2022 11:37-0400 SaO2% (BldA) [Mass fraction] 97 % [facility] 11-07-2022 11:37-0400 Systolic blood pressure 138 mm[Hg] [facility] 11-07-2022 09:38-0400 Body temperature 98.1 [degF] [facility] 11-07-2022 09:38-0400 Diastolic blood pressure 98 mm[Hg] [facility] 11-07-2022 09:38-0400 Heart rate 89 /min [facility] 11-07-2022 09:38-0400 Respiratory rate 18 /min [facility] 11-07-2022 09:38-0400 SaO2% (BldA) [Mass fraction] 99 % [facility] 11-07-2022 09:38-0400 Systolic blood pressure 158 mm[Hg] [facility] 11-05-2022 23:42-0400 Body height 172.72 cm [facility] 11-05-2022 23:42-0400 Body mass index (BMI) [Ratio] 43.6 kg/m2 [facility] 11-05-2022 23:42-0400 Body weight 130.2 kg [facility] 11-03-2022 12:11-0400 Body temperature 99 [degF] [facility] 11-03-2022 12:11-0400 Diastolic blood pressure 83 mm[Hg] [facility] 11-03-2022 12:11-0400 Heart rate 94 /min [facility] 11-03-2022 12:11-0400 Respiratory rate 18 /min [facility] 11-03-2022 12:11-0400 SaO2% (BldA) [Mass fraction] 99 % [facility] 11-03-2022 12:11-0400 Systolic blood pressure 135 mm[Hg] [facility] 11-03-2022 09:28-0400 Body height 172.72 cm [facility] 11-03-2022 09:28-0400 Body mass index (BMI) [Ratio] 43.1 kg/m2 [facility] 11-03-2022 09:28-0400 Body weight 128.68 kg [facility] 08-05-2022 00:16-0400 Body temperature 98.1 [degF] [facility] 08-05-2022 00:16-0400 Diastolic blood pressure 82 mm[Hg] [facility] 08-05-2022 00:16-0400 Heart rate 103 /min [facility] 08-05-2022 00:16-0400 Respiratory rate 19 /min [facility] 08-05-2022 00:16-0400 SaO2% (BldA) [Mass fraction] 94 % [facility] 08-05-2022 00:16-0400 Systolic blood pressure 129 mm[Hg] [facility] 08-04-2022 23:01-0400 Body height 172.72 cm [facility] 08-04-2022 23:01-0400 Body mass index (BMI) [Ratio] 42.1 kg/m2 [facility] 08-04-2022 23:01-0400 Body weight 125.64 kg [facility] 01-11-2022 14:32-0400 Diastolic blood pressure 82 mm[Hg] [facility] Work Phone: 01-11-2022 14:32-0400 Heart rate 81 /min [facility] Work Phone: 01-11-2022 14:32-0400 Respiratory rate 18 /min [facility] Work Phone: 01-11-2022 14:32-0400 SaO2% (BldA) [Mass fraction] 97 % [facility] Work Phone: 01-11-2022 14:32-0400 Systolic blood pressure 145 mm[Hg] [facility] Work Phone: 01-11-2022 10:26-0400 Body height 175.26 cm [facility] Work Phone: 01-11-2022 10:26-0400 Body mass index (BMI) [Ratio] 41.5 kg/m2 [facility] Work Phone: 01-11-2022 10:26-0400 Body temperature 98.2 [degF] [facility] Work Phone: 01-11-2022 10:26-0400 Body weight 127.6 kg [facility] Work Phone: Encounters Encounter Date Encounter Type Care Provider Facility Start: 07-02-2024 End: 07-02-2024 Emergency department patient visit No Primary Care Physician Facility:[facility] Start: 06-29-2024 End: 06-29-2024 Emergency department patient visit No Primary Care Physician -Emergency Department Work Phone: Start: 01-09-2024 End: 01-20-2024 ambulatory No Primary Care Physician Facility:[facility] Start: 10-14-2023 End: 10-14-2023 Emergency department patient visit Remus April Facility:[facility] Start: 06-23-2023 End: 06-23-2023 Emergency department patient visit [facility] Work Phone: Start: 06-19-2023 End: 06-19-2023 Emergency department patient visit [facility] Work Phone: Start: 11-11-2022 End: 11-11-2022 Emergency department patient visit [facility] Work Phone: Start: 11-05-2022 End: 11-07-2022 Evaluation and management of inpatient [facility] Work Phone: Start: 11-03-2022 End: 11-03-2022 Emergency department patient visit [facility] Work Phone: Start: 08-04-2022 End: 08-05-2022 Emergency department patient visit [facility] Start: 01-11-2022 End: 01-11-2022 Emergency department patient visit [facility] Procedures Date Procedure Procedure Detail Performing Clinician Start: 06-23-2023 CT of head without contrast Start: 11-05-2022 Bacteria identified in Blood by Culture Start: 11-05-2022 Urine culture Start: 11-03-2022 Urine culture Start: 11-03-2022 Computed tomography of abdomen and pelvis with intravenous contrast Start: 08-04-2022 Plain chest X-ray Start: 08-04-2022 SARS-CoV-2 & FLU Ant igen (Rapid) Start: 01-11-2022 Computed tomography of abdomen and pelvis with contrast Plan of Treatment Date Care Activity Detail Author Start: 07-02-2024 [facility] Start: 06-29-2024 End: 06-29-2024 [facility] Start: 06-19-2023 [facility] Start: 11-07-2022 [facility] Start: 11-07-2022 Patient discharge [facility] Start: 11-06-2022 Introduction to urin dain tract Cysto,Insertion Stent (Left) [facility] Start: 11-05-2022 Following clinical p athway protocol [facility] Start: 11-05-2022 Oxygen therapy [facility] Start: 11-05-2022 Admission procedure [facility] Start: 11-05-2022 Ambulation without limitation [facility] Start: 11-05-2022 Assessment of risk o f venous thromboembolism [facility] Start: 11-05-2022 Insertion of cathete r into peripheral vein [facility] Start: 11-05-2022 Measuring intake and output [facility] Start: 11-05-2022 Providing care accor ding to standard [facility] Start: 11-05-2022 End: 11-05-2022 [facility] Start: 11-05-2022 End: 11-05-2022 Blood culture [facility] Start: 11-05-2022 End: 11-05-2022 [facility] Start: 11-05-2022 Bacteria identified in Blood by Culture Blood Culture [facility] Start: 11-05-2022 Urine culture Urine Culture [facility] Start: 11-03-2022 Bacteria identified in Urine by Culture Urine Culture [facility] Start: 11-03-2022 [facility] Start: 08-04-2022 [facility] Calculus analysis [facility] Gastrointestinal pat hogens panel - Stool by ELLIOTT with probe detection [facility] Measurement of weigh t of calculus [facility] Origin of Stone [facility] Patient Education [facility] Work Phone: Patient referral [facility] Work Phone: Specimen color determination [facility] Payers Date Payer Category Payer Unknown [id number] 2024 Unknown 2023 Self-pay [id number] 2023 Unknown [id number] .. [id number] Unknown [id number] .. [id number] Unknown [id number]. [id number] Unknown [id number] Social History Date Type Detail Facility Start: 01-11-2022 End: 06-23-2023 Tobacco smoking status NHIS Unknown if ever smoked [facility] Start: 1975 Sex Assigned At Female [facility] Start: 06-29-2024 End: 07-02-2024 Tobacco smoking status NHIS Never smoked tobacco (finding) [facility] Start: 06-29-2024 End: 07-02-2024 Sex Female (finding) [facility] NEGATED: Highlighted row [facility] Work Phone: NEGATED: Highlighted row [facility] Goals Date Patient Goal Desired Activity /State Functional Status Date Assessment Result Facility 11-07-2022 Functional status Up ad cyndi [facility] Work Phone: Mental Status Date Assessment Result Facility 06-29-2024 Cognitive function Level Of Cons ciousness Awake;Alert;Appropriate;Follow s Commands [facility] Work Phone: 06-23-2023 Cognitive function Level Of Cons ciousness Awake;Alert;Appropriate;Follow s Commands [facility] Work Phone: 06-19-2023 Cognitive function Level Of Cons ciousness Awake;Alert;Appropriate;Follow s Commands [facility] Work Phone: 11-11-2022 Cognitive function Level Of Cons ciousness Awake;Alert;Appropriate;Follow s Commands [facility] Work Phone: 11-07-2022 Cognitive function Voice/Name [facility] Work Phone: Clinical Notes 11-03-2022 to 06-19-2023 Note Date & Type Note Facility 06-19-2023 Discharge summary Note Date/Time [facility] [address] [place] [address] Emergency Department Summary 06/19/23 MR#: [id number] Acct: [id number] Name: BRANDEN LEALN Rep #:[id number] : 1975 48 From: Eliu Torres MD PCP: Care Physician,No Primary Status :REG ER Location: ED HPI History of Present Illness Chief Complaint: General Illness Informant: patient Onset/Context/Timing Onset: Days Context: Gradual Onset Timing: Intermittent Current Severity: Mild Maximum Severity: Mild Narrative Narrative: 48-year-old female for medical history of a kidney stone. This is the last weekshe has had left nasal sinus congestion and some periorbital discomfort. No significant fever. No cough. No sore throat or earache. Said it feels like pressure. She is having no sinus drainage. Says at times it itches. Its better when she is supine. Denies any facial trauma. No severe headache. No neurological symptoms. Prior similar symptoms: No Recent Illness/Hospitalization: No PFSH PFSH Medical History Endometriosis Kidney cysts Migraine Pyelonephritis Ureter obstruction Home Medications hydrocodone-acetaminophen 5-325mg 5mg-325mg 1 tab PO Q6H PRN PRN Pain 3 days #12TABLETS 11/03/22 [Rx Last Taken Unknown] ondansetron 4 mg disintegrating tablet 4 mg PO Q8H PRN PRN Nausea #20 tabs 11/03/22 [Rx Last Taken Unknown] ciprofloxacin HCl 500 mg tablet (Cipro) 500 mg PO BID #14 tabs 11/07/22 [Rx Last Taken Unknown] diphenoxylate-atropine 2.5 mg-0.025 mg tablet (Lomotil) 1 tab PO TID PRN diarrhea 5 days #15 tabs 11/11/22 [Rx Last Taken Unknown] prednisone 20 mg tablet 40 mg (2 x 20 mg) PO DAILY 7 days #14 tabs 06/19/23 [Rx Last Taken Unknown] Allergy/AdvReac Type Severity Reaction Status Date / Time Penicillins Allergy Angioedema Verified 06/19/23 20:26 Surgical History H/O hernia repair H/O tubal ligation Hx of cholecystectomy Social History Smoking Status: Never smoker alcohol intake: current alcohol intake frequency: holidays/special occasions only substance use type: does not use ROS ROS ED ROS Narrative No vomiting or diarrhea. Review of Systems ROS Unobtainable: Denies due to encephalopathy Constitutional Constitutional ED: Denies chills or fever(s) Eyes Eyes: Denies blurry vision ENT ENT ED: Denies ear pain, rhinorrhea or sore throat Cardiovascular Cardiovascular: Denies chest pain or palpitations Respiratory/Chest Respiratory/Chest: Reports cough; Denies dyspnea Gastrointestinal Gastrointestinal: Denies abdominal pain Genitourinary Genitourinary ED: Denies dysuria or hematuria Musculoskeletal Musculoskeletal: Denies arthralgias, back pain, myalgias or neck pain Integumentary Denies abscess or Abrasions Neurologic Neurologic: Denies headache(s) or paresthesias Psychiatric Psychiatric: Denies anxiety or depression Endocrine Endocrinology: Denies cold intolerance Hematologic/Lymphatic Hematologic/Lymphatic: Reports none Allergic/Immunologic Allergic/Immunologic ED: Denies mouth swelling, tongue swelling or urticaria EXAM Physical Exam Narrative Exam Narrative: Well-appearing 48-year-old female. Vital signs are stable. Initial blood pressure 155/102. Temperature nine 9.6. HEENT exam TMs normal. Posterior pharynx normal and large but not infected tonsils. Nasal turbinates are swollenthere is no drainage or discharge. No frontal or maxillary sinus tenderness. Pupils round reactive light. No proptosis. No trauma. Neck nontender. No lymphadenopathy. Lungs clear to auscultation. Heart regular rhythm no murmur. Abdomen soft nontender. Moving all 4 extremities. 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 Dorsi and plantarflexion. Neurologically patient is awake alert no focal motor deficit. NIH is 0. Const Vital Signs: 06/19/23 20:24 06/19/23 21:36 Temperature 99.6 F H Temperature Source Oral Pulse Rate 98 Respiratory Rate 16 Respiratory Effort Normal Non-Labored Respiratory Pattern Normal Blood Pressure 155/102 H Blood Pressure Mean 119 Pulse Ox 98 Oxygen Delivery Method Room Air Positive well nourished and well developed; Negative for cachectic, contracturesor unkempt General Appearance ED: well developed and NAD; Negative for unkempt, cachectic, contractures, cyanotic, diaphoretic or pallor Nutritional Appearance: Negative for cachectic HEENT Reports TM's clear and moist mucous membranes; Denies dry mucous membranes Negative for trauma or tenderness Tympanic Membrane ED: Yes TM's clear Mouth ED: No dry mucous membranes Mouth: No dry mucous membranes Eyes PERRL and EOMs intact bilaterally General Eye ED: Negative for pale conjunctiva or scleral icterus Neck no lymphadenopathy, supple and no JVD General: Negative for tenderness Lymph Lymphatic: Negative for other Chest Wall inspection of chest normal and palpation of chest normal Chest: Negative for other Resp normal respiratory effort and clear to auscultation bilaterally Effort and Inspection: Negative for retractions Auscultation: Negative for rales, rhonchi or wheezes Cardio regular rate, regular rhythm, S1 normal heart sound, S2 normal heart sound and no murmurs Palpation: Negative for palpable S3 or palpable S4 Rate: Negative for bradycardia or tachycardic Rhythm: Negative for abnormal rhythm GI normal to inspection, nondistended, normoactive bowel sounds, non-tender, non-distended and no masses Inspection: Negative for abdominal distention Auscultation: normoactive bowel sounds Palpation: soft; Negative for tender, guarding, mass or rebound tenderness present Back/Spine no CVA tenderness General Back: Negative for CVA tenderness Cervical Spine: Negative for cervical spine tenderness Thoracic Spine / Upper Back: Negative for thoracic spinal tenderness or paraspinal muscle tenderness Extremity normal to inspection General Extremety ED: Negative for edema or tenderness General Extremity: Negative for edema Neuro oriented x3 and CN's II-XII intact bilaterally Sensorium / Orientation: alert; Negative for orientation impaired, lethargic or stuporous Motor Exam: strength 5/5 throughout; Negative for general weakness or strength abnormal Psych mental status grossly normal Appearance: Negative for unkempt Attitude: No agitated Mood & Affect: Negative for depressed, anxious or tearful Skin no rashes or lesions noted, no wounds and skin turgor normal General Skin Exam: Negative for jaundice or pallor Lesions: No lesion noted Rashes: No rashes noted Trauma: Negative for abrasion Wounds: Negative for wounds noted MDM MDM MDM Narrative Medical decision making narrative: 48-year-old female describes nasal congestion which may be seasonal. At times there is itching. She has no frontal maxillary sinus tenderness. She is havingno nasal discharge. We discussed treatment options. I did offer her a CAT scanbut told her I did not think this was infected. She is comfortable with oral steroids for a week at 40 mg. Given first dose here. And if not improving we can get a follow-up CAT scan or she can follow-up with a primary care provider. History & Record Review Discussion w/independent historian: Patient and Family Discharge Plan Triage Chief Complaint: General Illness ED Provider: Eliu Torres Dx/Rx/DC Orders Clinical Impression: Congestion of nasal sinus Instructions: Sinus Problems Dx Prescriptions: New prednisone 20 mg tablet 40 mg PO DAILY 7 Days Qty: 14 0RF No Action ondansetron 4 mg tablet,disintegrating 4 mg PO Q8H PRN PRN (Reason: Nausea) Qty: 20 0RF hydrocodone-acetaminophen 5-325 mg tablet 1 tab PO Q6H PRN PRN (Reason: Pain) 3 Days Qty: 12 0RF ciprofloxacin HCl [Cipro] 500 mg tablet 500 mg PO BID Qty: 14 0RF diphenoxylate-atropine [Lomotil] 2.5-0.025 mg tablet 1 tab PO TID PRN (Reason: diarrhea) 5 Days Qty: 15 0RF Primary Care Provider: Care Physician,No Primary Referrals: Mauricio Maldonado MD [Med Staff - Scratch Finisher] - 1 Week if not improving Care Physician,No Primary [Primary Care Provider] - Activity Restrictions/Additional Instructions: Most likely sinus congestion. No signs of bacterial infection. Prednisone 40 mg a day for the next week. If not improving follow-up and we can always get a CAT scan. Disposition Disposition: Home, Self Care What to do if you have Problems For any increased pain, shortness of breath, bleeding, nausea or vomiting, chestpain, or any unexpected problems, contact your Primary Care Provider. Call [facility] ([phone]) or report to the closest Emergency Room. Call 911 if necessary. 06/19/232230 <Electronically signed by Eliu Torres MD> Cosigner Signature (if applicable): CC: No Primary Care Physician ~ Signed [facility] Work Phone: [phone] 992-742207-27-2023 Discharge summary Author Mary Rodriguez [facility] November 07, 2022 8:28am Note Date/Time November 07, 2022 8:27 am [facility] Medical Records Department [address] [place] [address] Instructions for Home/Discharge Instructions 11/07/22 0826 MR#: [id number] Acct: [id number] Name: BRANDEN LEAL Rep #:[id number] : 1975 47 From: Mary Heredia PCP: Care Physician,No Primary Status :ADM IN Discharge Instructions Diet Discharge Diet: No restrictions Activity Discharge Activity: Return to Normal Activity Dressing / Incision Call your doctor if you observe: Fever of 101 or Higher, Inability to urinate and Inability to have a bowel movement Follow Up Care Please Follow Up With: Mary Rodriguez MD Test Results: Test results from this visit will be discussed in further detail at your follow- up appointment, if applicable. Discharge Plan Admission Admit Date/Time: 11/05/22 23:36 Attending Provider: Mary Rodriguez Primary Care Provider: Care Physician,Ca Primary Discharge Orders/Prescriptions Prescriptions: New ciprofloxacin HCl [Cipro] 500 mg tablet 500 mg PO BID Qty: 14 0RF Continued ondansetron 4 mg tablet,disintegrating 4 mg PO Q8H PRN PRN (Reason: Nausea) Qty: 20 0RF hydrocodone-acetaminophen 5-325 mg tablet 1 tab PO Q6H PRN PRN (Reason: Pain) 3 Days Qty: 12 0RF Discontinued sulfamethoxazole-trimethoprim [Bactrim DS] 800-160 mg tablet 1 tab PO BID Qty: 28 0RF Referrals / Follow Up: Care Physician,No Primary [Primary Care Provider] - Disposition Disposition (needs filled in before D/C Order can be placed): Home, Self Care 11/07/22 0828<Electronically signed by Mary Rodriguez MD>Mary Rodriguez MD CC: No Primary Care Physician ~ Signed [facility] Work Phone: [phone] 640-786207-27-2023 History and physical note Author Marycorey Rodriguez [facility] November 06, 2022 10:45pm Note Date/Time November 06, 2022 10:4 5pm [facility] Medical Records Department [address] [place] [id number] History & Physical Exam 11/06/229 MR#: [id number] Acct: [id number] Name: BRANDEN LEAL Rep #:[id number] : 1975 47 From: Mary Heredia PCP: Care Physician,No Primary Status :ADM IN Location: [facility] [place] FC227-3 HPI - General General Date of Admission: 11/05/22 Date of Service: 11/06/22 Chief Complaint: left flank pain HPI Narrative Late entry of note, patient seen at 12pm today. BRANDEN LEAL, is a 47 F who presents with uncontrolled left flank pain and fever. She had symptoms of a urinary tract infection 10 days prior to admission,and she treated it at home with hydration and cranberry juice. Symptoms resolved. They did not include fever, nausea or vomiting or flank pain at that time. She then had acute onset of pain about 2-3 days after the lower urinary tract infection resolved. She was seen in the ER and diagnosed with a urinary tract infection with left renal cyst and UPJ obstruction on CT. She was sent home on bactrim. Two days later, she presented to the ER with fever to 102 alongwith the left flank pain(last night). Interestingly she has not had symptoms of urgency, frequency, dysuria, bladder pain for the last 7 days since the initial infection onset. Overnight she received cipro, fluids and supportive care. She now has no pain atall. There have been no temps greater than 99.2 since admission. We reviewed all of her imaging together, and discussed that the left kidney is not normal with what appears to be an upper pole cyst vs hydronephrosis with ureteropelvic junction obstruction with lower pole stone. It is hard to tell without the renal pelvis filling with contrast, the images are not delayed enough for thorough delineation of the anatomy. We discussed all of the risks and benefits of proceeding with cystoscopy and ureteral stent insertion today. She has no complaints at present, but fears the pain coming back. We outlined a plan. We will see if she is afebrile for 24hrs, await culture results and continue antibiotics. If any issues overnight, will proceed with stent insertiontomorrow. If ok, will discharge on oral antibiotics with plan for further intervention and imaging as outpatient. [facility] Medical History Endometriosis Kidney cysts Migraine Ureter obstruction Home Medications hydrocodone-acetaminophen 5-325mg 5mg-325mg 1 tab PO Q6H PRN PRN Pain 3 days #12TABLETS 11/03/22 [Rx Last Taken Unknown] ondansetron 4 mg disintegrating tablet 4 mg PO Q8H PRN PRN Nausea #20 tabs 11/03/22 [Rx Last Taken Unknown] sulfamethoxazole 800 mg-trimethoprim 160 mg tablet (Bactrim DS) 1 tab PO BID antibitoic #28 tabs 11/03/22 [Rx Last Taken Unknown] Allergy/AdvReac Type Severity Reaction Status Date / Time Penicillins Allergy Angioedema Verified 11/05/22 20:02 Surgical History H/O hernia repair H/O tubal ligation Hx of cholecystectomy Social History Smoking Status: Never smoker alcohol intake: current alcohol intake frequency: holidays/special occasions only substance use type: does not use ROS Constitutional Constitutional: Reports chills and fever(s) Eyes Eyes: Reports systems reviewed and no addt'l complaints, except as documented ENT HEENT: Reports systems reviewed and no addt'l complaints, except as documented Cardiovascular Cardiovascular: Reports abdominal pain and nausea; Denies chest pain, dyspnea orvomiting Respiratory/Chest Respiratory/Chest: Reports systems reviewed and no addt'l complaints, except as documented Gastrointestinal Gastrointestinal: Reports abdominal pain and nausea Genitourinary Genitourinary: Reports flank pain and low back pain; Denies burning urination, dysuria, hematuria, urinary hesitancy or urinary urgency Musculoskeletal Musculoskeletal: Reports systems reviewed and no addt'l complaints, except as documented Integumentary Integumentary: Reports systems reviewed and no addt'l complaints, except as documented Neurologic Neurologic: Reports systems reviewed and no addt'l complaints, except as documented Psychiatric Psychiatric: Reports systems reviewed and no addt'l complaints, except as documented Endocrine Endocrinology: Reports systems reviewed and no addt'l complaints, except as documented Hematologic/Lymphatic Hematologic/Lymphatic: Reports systems reviewed and no addt'l complaints, exceptas documented Allergic/Immunologic Allergic/Immunologic: Reports systems reviewed and no addt'l complaints, except as documented Vital Signs Vital Signs Vital Signs: 11/05/22 23:50 11/06/22 05:43 11/06/22 08:18 Temperature 98.2 F 98.8 F Temperature Source Oral Oral Pulse Rate 98 101 H Pulse Strength Respiratory Rate 18 20 H Blood Pressure 139/78 H 121/76 H Blood Pressure Mean 98 91 Blood Pressure Source Monitor Monitor Blood Pressure Position Semi-Fowlers Sitting Blood Pressure Location Left Forearm Left Arm Pulse Ox 98 99 Oxygen Delivery Method Room Air Room Air Room Air 11/06/22 11:40 11/06/22 10:00 11/06/22 17:40 Temperature 98.7 F 98.9 F Temperature Source Oral Oral Pulse Rate 95 97 Pulse Strength Normal (2+) Respiratory Rate 18 18 Blood Pressure 134/80 H 128/82 H Blood Pressure Mean 98 97 Blood Pressure Source Monitor Monitor Blood Pressure Position Semi-Fowlers Semi-Fowlers Blood Pressure Location Left Arm Left Arm Pulse Ox 98 99 Oxygen Delivery Method Room Air Room Air 11/06/22 20:55 Temperature 98.6 F Temperature Source Oral Pulse Rate 95 Pulse Strength Respiratory Rate 18 Blood Pressure 140/85 H Blood Pressure Mean 103 Blood Pressure Source Monitor Blood Pressure Position Semi-Fowlers Blood Pressure Location Left Arm Pulse Ox 98 Oxygen Delivery Method Room Air Weight Weight: 130.2 kg Body Mass Index (BMI) 43.6 Physical Exam Const alert, oriented x3 and no apparent distress General Appearance: cooperative, comfortable, well kempt and well developed HEENT normocephalic, head/scalp atraumatic, hearing grossly normal bilaterally, external ears normal, external nose normal and moist oral mucous membranes Eyes General Eye: normal appearance of both eyes Neck supple General: trachea midline Lymph Lymphatic: no lymphedema noted Chest inspection of chest normal Chest: symmetrical chest wall rise Resp normal respiratory effort, normal air movement and no retractions Effort and Inspection: able to speak in complete sentences and symmetric chest movement Cardio regular rate GI normal to inspection, nondistended, normoactive bowel sounds, soft to palpation and non-tender no CVA tenderness Back/Spine no CVA tenderness Skin no rashes or lesions noted, no wounds, skin turgor normal and no jaundice Neuro oriented x3, CN's II-XII intact bilaterally and moves all extremities Psych mental status grossly normal and thought process normal Results Lab / Micro Data 11/06/22 05:50 11/06/22 05:50 Labs: Laboratory Results - last 24 hr 11/06/22 05:50: WBC 9.1, RBC 3.89 L, Hgb 10.9 L, Hct 34.3 L, MCV 88.2, MCH 28.0,MCHC 31.8 L, RDW Std Deviation 42.5, RDW Coeff of Krista 13.2, Plt Count 294, MPV 9.9, Immature Gran % (Auto) 0.800, Neut % (Auto) 73.9 H, Lymph % (Auto) 16.2 L, Brantley % (Auto) 7.2, Eos % (Auto) 1.7, Baso % (Auto) 0.2, Absolute Neuts (auto) 6.7, Absolute Lymphs (auto) 1.47, Nucleated RBC % 0, Sodium 137, Potassium 3.5, Chloride 105, Carbon Dioxide 26.0, Anion Gap 6, BUN 8, Creatinine 0.77, Estim Creat Clear Calc 92.09, Est GFR (MDRD) Af Amer 104, Est GFR (MDRD) Non-Af 86, BUN/Creatinine Ratio 10.4, Glucose 133 H, Calcium 9.2 Assessment & Plan Assessment/Plan (1) Left renal stone: (2) Hydronephrosis of left kidney: (3) Persistent fever: (4) Complicated urinary tract infection: (5) Pyelonephritis: PLAN: Plan continue cipro await culture results continue supportive care if fever etc, will proceed with cystoscopy and stent insertion will reevaluate in the morning. 11/06/221 <Electronically signed by Mary Rodriguez MD> Cosigner Signature (if applicable): CC: Dr. Mary Rodriguez MD; No Primary Care Physician~ Signed [facility] Work Phone: [phone] 553-358507-26-2023 Discharge summary Author Avery Stafford [facility] November 05, 2022 10:13pm Note Date/Time November 05, 2022 9:34 pm [facility] Medical Records Department [address] [place] [address] Emergency Department Summary 11/05/22 MR#: [id number] Acct: [id number] Name: BRANDEN LEAL Rep #:[id number] : 1975 47 From: Avery Stafford MD PCP: Care Physician,No Primary Status :REG ER Location: ED HPI History of Present Illness Chief Complaint: Complaint Detail of Chief Complaint: Persistent recurrent fever and recent diagnosis urinary tract infection Informant: patient Onset/Context/Timing Onset: Days Quality: Urinary symptoms Location: and left sided abdomen/flank pain. Current Severity: Mild Maximum Severity: Moderate Worsened by: Urinary tract infection Relieved by: Nothing Associated Symptoms Associated Symptoms: Fever and chills Narrative Narrative: Patient was seen on November 03. Patient was diagnosed with urinary tract infectionand placed on Bactrim based on allergies. Urine culture is presumptively positive for E. coli. Patient presents because of document temperature of 102.2at home. She took antipyretic prior to coming. She states she does not feel well. She did have a CAT scan on the which reveals obstruction at the leftUVJ with hydroureter nephrosis. There was no inflammation of the kidney. Patient also had renal calculi. Patient has not seen a urologist in the past. Patient does report nausea without vomiting or diarrhea. Patient does complain of mild headache. She denies visual, ocular auditory symptoms. She denies auditory symptoms. She denies chest pain. She does complain of shortness of breath at rest and shortness of breath with activity. This is new since yesterday. She does complain of pain on the left side which she experienced when she was seen on the . There is no history of trauma. She has not noted a rash. Prior similar symptoms: Yes Recent Illness/Hospitalization: Yes PFSH PFSH Medical History Endometriosis Kidney cysts Migraine Ureter obstruction Home Medications hydrocodone-acetaminophen 5-325mg 5mg-325mg 1 tab PO Q6H PRN PRN Pain 3 days #12TABLETS 11/03/22 [Rx Last Taken Unknown] ondansetron 4 mg disintegrating tablet 4 mg PO Q8H PRN PRN Nausea #20 tabs 11/03/22 [Rx Last Taken Unknown] sulfamethoxazole 800 mg-trimethoprim 160 mg tablet (Bactrim DS) 1 tab PO BID #28tabs 11/03/22 [Rx Last Taken Unknown] Allergy/AdvReac Type Severity Reaction Status Date / Time Penicillins Allergy Angioedema Verified 11/05/22 20:02 Surgical History H/O hernia repair H/O tubal ligation Hx of cholecystectomy Social History (Updated 11/05/22 @ 21:[address] Avery Stafford MD) Smoking Status: Never smoker alcohol intake: current alcohol intake frequency: holidays/special occasions only substance use type: does not use ROS ROS ED Constitutional Constitutional ED: Reports chills, fever(s) and sweats; Denies weight loss Eyes Eyes: Denies blurry vision, change in vision or diplopia ENT ENT ED: Denies ear pain, rhinorrhea or sore throat Cardiovascular Cardiovascular: Reports palpitations; Denies chest pain, orthopnea, paroxysmal nocturnal dyspnea or racing heartbeat Respiratory/Chest Respiratory/Chest: Reports dyspnea and dyspnea on exertion; Denies cough, orthopnea, paroxysmal nocturnal dyspnea or sputum Gastrointestinal Gastrointestinal: Reports abdominal pain and nausea; Denies constipation, diarrhea or melena Genitourinary Genitourinary ED: Reports dysuria and urinary frequency Musculoskeletal Musculoskeletal: Denies arthralgias, back pain, myalgias or neck pain Integumentary Denies abscess, Abrasions or rash Neurologic Neurologic: Denies headache(s), paresthesias or weakness Psychiatric Psychiatric: Denies anxiety or depression Endocrine Endocrinology: Denies cold intolerance or heat intolerance Hematologic/Lymphatic Hematologic/Lymphatic: Reports systems reviewed and no addt'l complaints, exceptas documented EXAM Physical Exam Const Vital Signs: 11/05/22 20:02 11/05/22 20:31 11/05/22 21:24 Temperature 99.2 F H 99.2 F H Temperature Source Temporal Oral Pulse Rate 117 H 100 95 Respiratory Rate 20 H 18 20 H Blood Pressure 160/92 H 120/100 H Blood Pressure Mean 114 106 Pulse Ox 95 95 95 Oxygen Delivery Method Room Air Room Air Room Air 11/05/22 21:24 Temperature Temperature Source Pulse Rate Respiratory Rate Blood Pressure Blood Pressure Mean Pulse Ox 95 Oxygen Delivery Method Room Air Positive well nourished, well developed and obese General Appearance ED: well developed; Negative for pallor Nutritional Appearance: obese HEENT Reports dry mucous membranes HEENT Narrative: Head is atraumatic normocephalic. Ears normal. Nares patent. Posterior pharynx is normal. Mouth ED: Yes dry mucous membranes Mouth: dry mucous membranes Eyes PERRL and EOMs intact bilaterally General Eye ED: Negative for pale conjunctiva or scleral icterus Neck no lymphadenopathy, supple and no JVD Chest Wall inspection of chest normal and palpation of chest normal Resp No normal respiratory effort and clear to auscultation bilaterally Resp Narrative: There is minimal use of accessory muscles with minimal activity. Auscultation: diminished lung sounds Cardio regular rhythm, S1 normal heart sound, S2 normal heart sound and no murmurs Rate: tachycardic GI normal to inspection, nondistended, normoactive bowel sounds, non-distended and no masses; Negative for hepatosplenomegaly Palpation: soft and tender LLQ and LUQ; Negative for guarding, splenomegaly, mass or rebound tenderness present Back/Spine General Back: CVA tenderness left Cervical Spine: Negative for cervical spine tenderness Thoracic Spine / Upper Back: Negative for thoracic spinal tenderness Lumbar Spine / Lower Back: Negative for lumbar spinal tenderness Extremity normal to inspection General Extremety ED: Negative for tenderness Neuro oriented x3, CN's II-XII intact bilaterally and no sensory deficits noted Sensorium / Orientation: alert Psych mental status grossly normal Skin no rashes or lesions noted, no wounds and skin turgor normal General Skin Exam: Negative for elasticity normal, jaundice or pallor MDM MDM MDM Narrative Medical decision making narrative: Patient has symptoms consistent with failed outpatient treatment for urinary tract infection. The obstruction may be due to a congenital or acquired lesion at the left UV Russell and also may be a nonvisualized stone. Patient does have renal cyst. Based on allergy to penicillin with angioedema patient was treated with levofloxacin per sepsis order set. Blood work was repeated. CBC was obtained assess white count differential. BMP to assess renal function. Lactate to assess for endorgan dysfunction. Lab Data Attestation: I reviewed the patient's lab results. Lab results narrative: Count is upper end of normal at 10.7 with shift. There is no bandemia. Coags are normal. Labs: Laboratory Results - last 24 hr 11/05/22 21:00 WBC 10.7 RBC 4.01 L Hgb 11.1 L Hct 35.1 L MCV 87.5 MCH 27.7 MCHC 31.6 L RDW Std Deviation 41.5 RDW Coeff of Krista 12.9 Plt Count 308 MPV 9.5 Immature Gran % (Auto) 0.700 Neut % (Auto) 76.3 H Lymph % (Auto) 15.2 L Brantley % (Auto) 6.6 Eos % (Auto) 1.0 Baso % (Auto) 0.2 Absolute Neuts (auto) 8.2 H Absolute Lymphs (auto) 1.62 Nucleated RBC % 0 PT 14.5 INR 1.1 APTT 40.2 H Sodium 135 L Potassium 3.4 L Chloride 103 Carbon Dioxide 25.0 Anion Gap 7 BUN 8 Creatinine 0.76 Estim Creat Clear Calc 93.30 Est GFR (MDRD) Af Amer 104 Est GFR (MDRD) Non-Af 86 BUN/Creatinine Ratio 10.5 Glucose 146 H Lactic Acid 0.8 Calcium 9.9 Total Bilirubin 0.40 AST 24 ALT 38 Alkaline Phosphatase 111 Total Protein 7.8 Albumin 2.8 L Globulin 5.0 H Albumin/Globulin Ratio 0.6 L Management Discussion w/another healthcare provider: Hospitalist (Case discussed with Dr. Simpson. She requests I speak to urology. Spoke with Dr. 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 Discharge Plan Triage Chief Complaint: Complaint ED Provider: Avery Stafford Dx/Rx/DC Orders Clinical Impression: Complicated urinary tract infection, Sepsis without acute organ dysfunction, Persistent fever, Hydronephrosis of left kidney, Left renal stone Prescriptions: No Action sulfamethoxazole-trimethoprim [Bactrim DS] 800-160 mg tablet 1 tab PO BID Qty: 28 0RF ondansetron 4 mg tablet,disintegrating 4 mg PO Q8H PRN PRN (Reason: Nausea) Qty: 20 0RF hydrocodone-acetaminophen 5-325 mg tablet 1 tab PO Q6H PRN PRN (Reason: Pain) 3 Days Qty: 12 0RF Primary Care Provider: Care Physician,No Primary Referrals: Care Physician,No Primary [Primary Care Provider] - Disposition Disposition: Acute Care Hospital [facility] What to do if you have Problems For any increased pain, shortness of breath, bleeding, nausea or vomiting, chestpain, or any unexpected problems, contact your Primary Care Provider. Call [facility] ([phone]) or report to the closest Emergency Room. Call 911 if necessary. 11/05/222212 <Electronically signed by Avery Stafford MD> Cosigner Signature (if applicable): CC: No Primary Care Physician ~ Signed [facility] Work Phone: [phone] 248-794107-23-2023 Hospital Discharge instructions Additional Instructions Your urine culture from November 03 shows that the E. coli causing the infection is sensitive to Bactrim. Therefore stop the Cipro that you were given as you are having difficulty with diarrhea from it and begin the Bactrim that you have at home. Take Lomotil as directed to help resolve any further diarrhea and keep yourself well-hydrated. Please bring back a stool sample as directed however to ensure there is no C. difficile present.[facility] Work Phone: Consult note Author Leela Gupta [facility] November 07, 2022 9:50am Note Date/Time November 07, 2022 9:50 am [facility] Medical Records Department [address] [place] [address] Counseling Note - Pharmacy 11/07/22 0948 MR#: [id number] Acct: [id number] Name: BRANDEN LEAL Rep #:[id number] : 1975 47 From: Leela Gupta PCP: Care Physician,No Primary Status :ADM IN Y Location: [place] [address] Pharmacy [facility] has performed discharge medication reconciliation and counseling for this patient. The patient was counseled on the following discharge medications and changes in medications for homegoing were reviewed. 1. CIPRO The Reason for Use, instructions for use, and potential side effects were reviewed for all new medications. The patient's questions regarding all of their medications were answered. The patient was able to verbally demonstrate an understanding of their dischargemedications. The patient's discharge medication list was reviewed for discrepancies and discrepancies were resolved. Patient counselled by Julius Hanna PharmD candidate Medications at Discharge Home Medications hydrocodone-acetaminophen 5-325mg 5mg-325mg 1 tab PO Q6H PRN PRN Pain 3 days #12TABLETS 11/03/22 ondansetron 4 mg disintegrating tablet 4 mg PO Q8H PRN PRN Nausea #20 tabs 11/03/22 ciprofloxacin HCl 500 mg tablet (Cipro) 500 mg PO BID #14 tabs 11/07/22 11/07/22 0950 <Electronically signed by Leela Gupta > Date _ Leela Gupta Cosigner Signature (if applicable): Date CC: ~ Signed [facility] Work Phone: Evaluation noteNo assessment information available [facility] Work Phone: Evaluation note* Diagnosis Onset Date Resolution Status Complicated urinary tract infection acute Hydronephrosis of left kidney acute Left renal stone acute Persistent fever acute Pyelonephritis acute Sepsis without acute organ dysfunction acute [facility] Work Phone: Evaluation note* Diagnosis Onset Date Resolution Status Hydronephrosis of left kidney acute Left renal stone acute Complicated urinary tract infection resolved Persistent fever resolved Sepsis without acute organ dysfunction resolved [facility] Work Phone: Hospital Discharge instructions Additional Instructions Chest x-ray negative. COVID and flu negative. Labs are stable. Use inhaler as prescribed every 2-4 hours as needed for wheezing. Continue your seasonal allergy medicines. Monitor symptoms. Return if worsening symptoms not improved with inhaler. Otherwise outpatient follow-up.[facility] Work Phone: Hospital Discharge instructions Additional Instructions Most likely sinus congestion. No signs of bacterial infection. Prednisone 40 mg a day for the next week. If not improving follow-up and we can always get a CAT scan.[facility] Work Phone: Hospital Discharge instructions Additional Instructions Please follow-up for your eye exam on Friday as discussed.[facility] [facility] Work Phone: Hospital Discharge instructions Additional Instructions Muscle strain and spasm of your upper shoulder neck and chest and back. Hot shower, warm bath, massage, massage gun, whirlpool. Motrin for pain and inflammation. The muscle relaxant Skelaxin 1 pill 3 times a day for 1 week. It will not work initially after 2 to 3 days of start feeling a lot better. The pain medication as needed. Do not drive a car if you are using the narcotic pain medication. Do not drink alcohol using it. Follow-up if not improving or return if worse.[place] [facility] Work Phone: Hospital Discharge instructions Additional Instructions Follow-up with PCP provided below as well as orthopedic physician. Return back to the ED if symptoms change or worsen. Recommend IcyHot and heating pad. You received muscle relaxer here in the emergency department. Do not take another muscle relaxer for 8 hours. Muscle relaxers can increase drowsiness as well as falls and confusion. Do not drive or operate heavy machinery while taking them. Okay for Tylenol and Motrin. Stop taking your previous muscle relaxers.[facility] Work Phone: Reason for referral (narrative)No reason for referral information availableWBlanchard [facility] Work Phone: Chief Complaint and Reason for Visit Chief Complaint abdominal pain Chief Complaint sob Chief Complaint sob ABD PAIN Chief Complaint sob ABD PAIN ACUTE PYELONEPHRITIS Reason for Visit Complicated urinary tract infection Hydronephrosis of left kidney Left renal stone Persistent fever Pyelonephritis Sepsis without acute organ dysfunction Chief Complaint sob ABD PAIN ACUTE PYELONEPHRITIS ARM PAIN, SE FROM MEDS Reason for Visit Hydronephrosis of le ft kidney Left renal stone Complicated urinary tract infection Persistent fever Sepsis without acute organ dysfunction Chief Complaint EYE PROBLEM Chief Complaint EYE PROBLEM HEADACHE Chief Complaint Admit Date NECK June 29, 2024 11: 08am Chief Complaint Admit Date NECK June 29, 2024 11: 08am left shoulder injury July 02, 2024 5: 59am Advance Directives Advance Directive Response Recorded Date/ Time Living Will No January 11, 2022 10:45am Power of Client Care Specialist No December 10:45am Advance Directive Response Recorded Date/ Time Living Will No August 04, 2022 11:07pm Power of Client Care Specialist No August 04 11:07pm Advance Directive Response Recorded Date/ Time Living Will No November 03, 2022 9:33am Power of Client Care Specialist No November 03 9:33am Advance Directive Response Recorded Date/ Time Living Will No November 05, 2022 11:45pm Power of Client Care Specialist No November 05 11:45pm Advance Directive Response Recorded Date/ Time Living Will No November 11, 2022 10:49pm Power of Client Care Specialist No November 11 10:49pm Advance Directive Response Recorded Date/ Time Living Will No June 19, 2023 9:36pm Power of Client Care Specialist No June 18 9:36pm Advance Directive Response Recorded Date/ Time Living Will No June 23, 2023 10:00pm Power of Client Care Specialist No June 22 10:00pm Advance Directive Response Recorded Date/ Time Living Will No June 29, 2024 1:07pm Power of Client Care Specialist No June 29 1:07pm Advance Directive Response Recorded Date/ Time Living Will No June 29, 2024 1:07pm Do you have a Healthcare Power of Client Care Specialist? No June 29, 2024 1:07pm Living Will No July 02, 2024 6:03am Do you have a Healthcare Power of Client Care Specialist? No July 02, 2024 6:03am Summary Purpose Family History No Family History Records Found Additional Source Comments Goals (unrecognized section and content) Goals may be documented in a n alternate sectionGoals may be documented in an alternate sectionGoals may be documented in an alternate sectionGoals may be documented in an alternate sectionGoals may be documented in an alternate sectionGoals may be documented in an alternate sectionGoals may be documented in an alternate section Care Teams (unrecognized sec tion and content) Team Status: Active Member Role Status Dates No Primary Care Physician Family Provider Active No Primary Care Physician Primary Care Provider Active Team Status: Inactive Member Role Status Dates No Primary Care Physician Primary Care Provider Active Dr. Catracho Allen DO Emergency Provider Active Team Status: Inactive Member Role Status Dates No Primary Care Physician Primary Care Provider Active Dr. Catracho Allen DO Attending Provider, Emergency Provide r Active Team Status: Inactive Member Role Status Dates No Primary Care Physician Primary Care Provider Active Dr. Bertrand Hopper DO Emergency Provider Active Team Status: Inactive Member Role Status Dates No Primary Care Physician Primary Care Provider Active Dr. Avery Stafford MD Emergency Provider Active Dr. Mary Rodriguez MD Admit Provider, Attending Provi juliette Active Team Status: Inactive Member Role Status Dates No Primary Care Physician Primary Care Provider Active Dr. Darrel Flores , Emergency Provider Active Team Status: Inactive Member Role Status Dates No Primary Care Physician Primary Care Provider Active Dr. Eliu Torres MD Emergency Provider Active Team Status: Inactive Member Role Status Dates No Primary Care Physician Primary Care Provider Active Dr. Lisa Castillo MD Emergency Provider Active Team Status: Inactive Member Role Status Dates No Primary Care Physician Primary Care Provider Active Dr. Eliu Torres MD Attending Provider, Emergency Pro vider Active Team Status: Active Member Role Status Dates No Primary Care Physician Primary Care Provider Active Team Status: Inactive Member Role Status Dates No Primary Care Physician Primary Care Provider Active Start: June 29, 2024 End: June 29, 2024 Dr. Eliu Torres MD Emergency Provider Active S tart: June 29, 2024 End: June 29, 2024 Team Status: Inactive Member Role Status Dates No Primary Care Physician Primary Care Provider Active Start: July 02, 2024 End: July 02, 2024 Dr. Tyrell Givens DO Emergency Provider Activ e Start: July 02, 2024 End: July 02, 2024 INFORMATION SOURCE (unrecogn ized section and content) DATE CREATED AUTHOR 07/11/2024 [facility] FOR RECORDS PERTAINING TO PATIENTS WHO ARE OR HAVE BEEN ENROLLED IN A CHEMICAL DEPENDENCY/SUBSTANCEABUSE PROGRAM, SOME INFORMATION MAY BE OMITTED. This clinical summary was aggregated from multiple sources. Caution should be exercised in using it in the provision of clinical care. This summary normalizes information from multiple sources, and as a consequence, information in this document may materially change the coding, format and clinical context of patient data. In addition, data may be omitted in some cases. CLINICAL DECISIONS SHOULD BE BASED ON THE PRIMARY CLINICAL RECORDS. [employer] provides no warranty or guarantee of the accuracy or completeness of information in this document.
[2024-12-06 17:23] LABS: Red Blood Cells-Urine 0-5 SEEN /hpf (0-5); Squamous Epithelial Cells - UA 0-5 SEEN /hpf (5-10)
== END 2024-12-06 17:56 | disposition home or self-care (01) ==
PROVIDERS: Emergency Provider Emergency Medicine; Visit Provider Emergency Medicine
DX: E11.65 Type 2 diabetes mellitus with hyperglycemia (principal); Z53.29 Procedure and treatment not carried out because of patient's decision for other reasons; N39.0 Urinary tract infection, site not specified; B96.20 Unspecified Escherichia coli [E. coli] as the cause of diseases classified elsewhere; Z90.49 Acquired absence of other specified parts of digestive tract
CPT/HCPCS: 80048; 81001; 82010; 82962; 83036; 85025; 87086; 87088; 87186; 96360; 96361; 99283; A4216